=== PATIENT | female | born 1945 | race Caucasian/White ===

== ENCOUNTER 2016-05-30 06:14 | Inpatient (IN) | payer MEDICARE, BC ==
[~2016-05-30 06:14] MED LIST: Lactated Ringers 1,000 ML IV SCH; Lidocaine 1%/Sod Bicarbonate in NS 8.4% 1 ML Syringe IV PRN; Sodium Chloride 0.9% 10 ML Syringe FLUSH PRN; ceFAZolin 1 GM Vial ONE
[2016-05-30] MEDS ORDERED: Sodium Chloride 0.9% 10 ML ONE (06:16)
[2016-05-30] MEDS ORDERED: Propofol 200 MG/20 ML SDV ONE ×2 (06:16→07:30)
[2016-05-30] MEDS ORDERED: Midazolam 1 MG/ML 2 ML SDV ONE (06:17)
[2016-05-30] MEDS ORDERED: fentaNYL 100 MCG/2 ML SDV ONE (06:17)
[2016-05-30] MEDS ORDERED: Morphine PF 10 MG/10 ML SDV ONE (06:18)
[2016-05-30] MEDS ORDERED: Ondansetron 4 MG/2 ML SDV IVPUSH PRN ×2 (06:25→06:42)
[2016-05-30] MEDS ORDERED: HYDROmorphone 0.5 MG/0.5 ML Syringe IVPUSH PRN (06:25)
[2016-05-30] MEDS ORDERED: diphenhydrAMINE 50 MG/ML SDV IVPUSH PRN (06:25)
[2016-05-30] MEDS ORDERED: fentaNYL 100 MCG/2 ML SDV IVPUSH PRN (06:25)
--- NOTE | 2016-05-30 06:31 | PCM.PREANE ---
Preanesthetic Assessment - Anesthesia/Transfusion/Family Hx Anesthesia History: Prior Anesthesia Without Reaction Type of Anesthesia Reaction: Unknown Family History of Anesthesia Reaction: No Transfusion History: Unknown Type of Transfusion Reactions: Reports: Unknown - Review of Systems General: No Symptoms Pulmonary: No Symptoms (asthma, only uses inhaler with colds or flu) Cardiovascular: No Symptoms Gastrointestinal: No symptoms (gerd, well controlled with meds) Neurological: No Symptoms (hx of back pain, s/p surgery in January, rarely with get pain down left leg) Other: Reports: Depression, Anxiety - Physical Assessment NPO Status Date: 05/29/16 NPO Status Time: 21:00 Pulse: 90 O2 Sat by Pulse Oximetry: 92 Respiratory Rate: 16 Blood Pressure: 154/78 Temperature: 36.8 C Height: 1.63 m Weight: 68.039 kg ASA Class: 2 Mental Status: Alert & Oriented x3 Airway Class: Mallampati = 2 Dentition: Reports: Normal Dentition Thyro-Mental Finger Breadths: 3 Mouth Opening Finger Breadths: 2 ROM/Head Extension: Limited/Partial Lungs: Clear to auscultation, Normal respiratory effort Cardiovascular: Regular Rate, Regular Rhythm - Lab Values: Laboratory Last Values MRSA (PCR) Negative 05/18/16 11:41 - Allergies Allergies/Adverse Reactions: Allergies Allergy/AdvReac Type Severity Reaction Status Date / Time niacin Allergy Rash Verified 05/27/16 10:38 atorvastatin calcium AdvReac Muscle Verified 05/27/16 10:38 [From Lipitor] Aches rosuvastatin calcium AdvReac Muscle Verified 05/27/16 10:38 [From Crestor] Aches - Blood Blood Available: No Product(s) Available: None - Anesthesia Plan Pre-Op Medication Ordered: None - Acknowledgements Anesthesia Type Planned: Spinal Pt an Appropriate Candidate for the Planned Anesthesia: Yes Alternatives and Risks of Anesthesia Discussed w Pt/Guardian: Yes Pt/Guardian Understands and Agrees with Anesthesia Plan: Yes PreAnesthesia Questionnaire Cardiovascular History: Reports: Hypertension, Other (see below) Other Cardiovascular History: hypercholesterolemia Respiratory History: Reports: Asthma Other Respiratory History: rib pain on left side Neurological History: Reports: Other (see below) Other Neuro History: myalgia Psychiatric History: Reports: Anxiety, Other (see below) Other Psychiatric History: major depressive disorder - Past Surgical History GI Surgical History: Reports: Appendectomy, Cholecystectomy Female Surgical History: Reports: Hysterectomy Musculoskeletal Surgical History: Reports: Other (see below) Other Musculoskeletal Surgeries/Procedures:: hammertoe surgery - SUBSTANCE USE Smoking Status *Q: Never Smoker Second Hand Smoke Exposure: No Days Per Week of Alcohol Use: 0 (rarely) Recreational Drug Use History: No - HOME MEDS Home Medications: Home Meds Amitriptyline [Elavil] 50 mg PO DAILY 10/06/14 [History] Cyanocobalamin (Vitamin B-12) [B-12] 1,000 mcg PO DAILY 10/06/14 [History] DULoxetine [Cymbalta] 30 mg PO DAILY 10/06/14 [History] DULoxetine [Cymbalta] 60 mg PO DAILY 10/06/14 [History] Diltiazem HCl [Diltiazem ER] 240 mg PO DAILY 10/06/14 [History] Docusate Sodium [Stool Softener] 150 mg PO BID 10/06/14 [History] Estrogens, Conjugated [Premarin] 12.5 mcg VAG DAILY 10/06/14 [History] Lutein/Min/Vit C/Vit E Acetate [Ocuvite Lutein] 1 mg PO DAILY 10/06/14 [History] Pravastatin [Pravachol] 20 mg PO DAILY 10/06/14 [History] Sennosides/Docusate Sodium [Senna-Docusate Sodium Tablet] 150 mg PO BID [History] buPROPion [Wellbutrin XL] 150 mg PO DAILY 10/06/14 [History] Ibuprofen 600 mg PO Q4HR PRN #30 tablet 10/07/14 [Rx] Diltiazem [Cardizem CD] 240 mg PO DAILY 05/27/16 [History] Multivitamin [Multivitamins] 1 cap PO BID 05/27/16 [History] Pantoprazole Sodium [Protonix] 40 mg PO DAILY 05/27/16 [History] - CURRENT (IN HOUSE) MEDS Current Meds: Current Medications Lactated Ringer's (Ringers, Lactated) 1,000 mls @ 125 mls/hr IV ASDIRECTED GLORIA Lidocaine/Sodium Bicarbonate (Buffered Lidocaine 1% In Ns 8.4%) 0.25 ml IV ONETIME PRN PRN Reason: Prior to IV Start Sodium Chloride (Saline Flush) 10 ml FLUSH ASDIRECTED PRN PRN Reason: Keep Vein Open Discontinued Medications Cefazolin Sodium (Ancef) Confirm Administered Dose 2 gm .ROUTE .STK-MED ONE Stop: 05/30/16 06:17 Fentanyl (Sublimaze) Confirm Administered Dose 100 mcg .ROUTE .STK-MED ONE Stop: 05/30/16 06:18 Sodium Chloride (Normal Saline) Confirm Administered Dose 10 mls @ as directed .ROUTE .STK-MED ONE Stop: 05/30/16 06:17 Midazolam HCl (Versed 1 Mg/Ml) Confirm Administered Dose 2 mg .ROUTE .STK-MED ONE Stop: 05/30/16 06:18 Morphine Sulfate (Duramorph Pf) Confirm Administered Dose 10 mg .ROUTE .STK-MED ONE Stop: 05/30/16 06:19 Propofol (Diprivan 20 Ml) Confirm Administered Dose 200 mg .ROUTE .STK-MED ONE Stop: 05/30/16 06:17 Preanesthetic Assessment - ANESTHESIA/TRANSFUSION/FAMILY HX Anesthesia/Transfusion History: No Prior Transfusion(s), Prior Anesthesia (NO PROB) Family History of Anesthesia Reaction: No - PHYSICAL ASSESSMENT Height: 1.63 m Weight: 68.039 kg - LAB Values: Laboratory Last Values MRSA (PCR) Negative 05/18/16 11:41 - ALLERGIES Allergies/Adverse Reactions: Allergies Allergy/AdvReac Type Severity Reaction Status Date / Time niacin Allergy Rash Verified 05/27/16 10:38 atorvastatin calcium AdvReac Muscle Verified 05/27/16 10:38 [From Lipitor] Aches rosuvastatin calcium AdvReac Muscle Verified 05/27/16 10:38 [From Crestor] Aches
[2016-05-30] MEDS ORDERED: Sennosides 8.6 MG Tab PO PRN (06:42)
[2016-05-30] MEDS ORDERED: Bisacodyl 5 MG Tab PO PRN (06:42)
[2016-05-30] MEDS ORDERED: Magnesium Hydroxide 400 MG/5 ML Susp 30 ML Cup PO PRN (06:42)
[2016-05-30] MEDS ORDERED: Naloxone 0.4 MG/ML SDV IVPUSH PRN (06:42)
[2016-05-30] MEDS: Bupivacaine 0.25% 30 ML SDV ONE ×2 (07:48→08:13)
[2016-05-30] MEDS: ceFAZolin 1 GM Vial ONE ×2 (07:48→08:07)
[2016-05-30] MEDS: Iodine/Sodium Iodide 2% Tincture 30 ML Bottle ONE ×2 (07:49→08:04)
[2016-05-30] MEDS: Morphine 8 MG, EPINEPHrine 0.3 MG, Cefuroxime 750 MG, Ketorolac 30 MG, Sodium Chloride ... ONE ×10 (07:49→08:11)
--- NOTE | 2016-05-30 08:10 | PCM.OPNOTE ---
- General Post-Op/Procedure Note Date of Surgery/Procedure: 05/30/16 Operative Procedure(s): left total knee arthroplasty Pre Op Diagnosis: left knee osteoarthrosis Post-Op Diagnosis: Same Anesthesia Technique: Local, MAC, Spinal Primary Surgeon: Toney Escalera Anesthesia Provider: Kinsey Russo Automotive Service Manager: Alyson Geronimo Automotive Service Manager: Jo Short EBToya in mLs: 600 Complications: None Condition: Good
[2016-05-30] MEDS ORDERED: Lactated Ringers 1,000 ML ONE ×2 (08:30)
--- NOTE | 2016-05-30 08:54 | PCM.POSTAN ---
POST ANESTHESIA ASSESSMENT - VITAL SIGNS Pulse Rate: 88 SaO2: 95 Resp Rate: 16 Blood Pressure: 123/71 Temperature: 36.2 C - RESPIRATORY Respiratory Status: respiratory rate WNL, airway patent, O2 saturation stable, supplemental oxygen - CARDIOVASCULAR CV Status: pulse rate WNL, blood pressure stable - GASTROINTESTINAL GI Status: no symptoms - PAIN Pain Score: 0 - POST OP HYDRATION Hydration Status: adequate & stable
[2016-05-30] MEDS ORDERED: Diphtheria,Pertussis(Acell),Tetanus Vaccine 0.5 ML SDV inactive IM ONE (10:11)
[2016-05-30] MEDS ORDERED: Pneumococcal 13-Valent Conjugate Vaccine 0.5 ML Syringe IM ONE (10:12)
[2016-05-30] MEDS: Acetaminophen/oxyCODONE 325-5 MG Tab PO PRN ×3 (10:12→21:23)
[2016-05-30] MEDS: Famotidine 20 MG Tab PO SCH ×2 (10:15→21:24)
--- NOTE | 2016-05-30 10:29 | CR ---
Left knee: AP and lateral views of the left knee were obtained. Comparison: No previous knee exam. Recently placed left knee prosthesis is seen. Components are aligned. Underlying bony structures are intact. Joint effusion is seen. Air noted within the joint and soft tissues which is compatible with the surgical procedure. Impression: 1. Satisfactory appearance of recently placed left knee prosthesis. Diagnostic code #2
--- NOTE | 2016-05-30 13:21 | OR ---
DATE OF OPERATION: 05/30/2016 SURGEON: Toney Escalera MD OPERATION PERFORMED: Left total knee arthroplasty. PREOPERATIVE DIAGNOSIS: Left knee osteoarthrosis. POSTOPERATIVE DIAGNOSIS: Left knee osteoarthrosis. ANESTHESIA: Local MAC with spinal. ANESTHESIA PROVIDER: Kinsey Russo CRNA ASSISTANTS: Alyson Geronimo PA-C, and Jo Short LPN. ESTIMATED BLOOD LOSS: 600 mL. COMPLICATIONS: None. CONDITION: Stable. IMPLANTS: 1. [place] size 4 PS femur. 2. [place] size 4 [place] tibial baseplate. 3. Te[place]oro size 4, 9 mm X3 PS polyethylene. 4. 29 x 9 mm [place] asymmetric patella. DESCRIPTION OF PROCEDURE: The patient was identified in the preop holding area. Proper site was marked and identified by the surgeon. The patient was taken back to the operating theater. After adequate anesthesia, the patient's left lower extremity had a nonsterile tourniquet applied and it was then sterilely prepped and draped in the usual sterile fashion. OR timeout was performed. The patient received 2 grams IV Ancef. At this time, left lower extremity was exsanguinated. Tourniquet was insufflated to 300 mmHg. Standard medial parapatellar incision was made. Medial parapatellar arthrotomy was created. Deep fibers of the MCL were raised and anterior fat pad was resected. At this time, attention was turned to the patella. Patella measured 21, it was resected to a 13 for a 29 x 9 mm patella. Drill holes were then drilled and found to be in adequate position. The drill was then drilled in the distal femur and the intramedullary distal femoral cutting guide was then placed. 8 mm was resected off the distal femur and was found to be an adequate resection. Sizing guide was placed. It was found to be a size 4 PS femur that was shown on the implant record at the beginning of this dictation. The drill holes were drilled for the epicondylar axis using Whitesides line and epicondyles as reference. At this time, the 4-in- 1 cutting block was placed. An anterior posterior and anterior and posterior chamfer cuts were then completed. The correct size box cut was then placed and the box cut was completed and found to be an adequate resection. Attention was turned to the tibia. The posterior medial lateral retractors were placed. The extramedullary tibial guide was placed. It was placed in the old footprint of the ACL. It was aligned with the center of the ankle and 0 degrees of slope, 9 mm was then resected off the unaffected lateral side. There was found to be an acceptable reduction. At this time, posterior osteophytes were removed along with medial and lateral meniscus. A trial implant was placed with a correct sized tibia that was mentioned at the beginning of the dictation. A spacer was placed and a 4 PS polyethylene was then placed. The patient's knee was brought through range of motion. The patella was tracking centrally and was stable to varus and valgus stress. Alignment was found to be roughly at 0 degrees. At this time, cement was mixed on the back table. The tibia was stamped and drilled in proper rotation. All cut surfaces were irrigated with pulse lavage irrigation with Ancef and then completely dried. Once this was completed, then the cement was ready. The universal tibial base plate was cemented in place. Next, the 4 PS femur was cemented into place and the 4 PS polyethylene was placed. The patient's knee was brought into full extension. Excess cement was removed. The patella was then cemented in place at this time. Tourniquet was deflated. One liter dilute Betadine solution was irrigated through the knee along with 3 L of pulse lavage irrigation with Ancef. Periarticular injection was then completed. The patient's knee was brought through a range of motion. Once the cement had time to set up and it was found to be stable to varus valgus stress, the patella was tracking centrally with full range of motion. At this time, a #2 barbed suture was used for closure of the medial parapatellar arthrotomy. Topical tranexamic acid was placed. 2-0 Vicryl was used subcutaneously, a running 3-0 Monocryl was used subcuticularly. The patient tolerated the procedure well and was sent to the PACU in stable condition. MMABI /[id number]
--- NOTE | 2016-05-30 13:35 | PCM.CONS ---
H&P History of Present Illness - General Date of Service: 05/30/16 Admit Problem/Dx: Admission Diagnosis/Problem Admission Diagnosis/Problem Osteoarthritis of knee Source of Information: Patient, Old records, Provider, RN notes reviewed History Limitations: Reports: Physical impairment - History of Present Illness Initial Comments - Free Text/Narative: This is a 70-year-old, white female, with past medical history of HTN, HLD, Asthma, GERD, Anxiety and Depression who underwent left total knee arthroplasty post operative day zero. Patient is doing relatively well. Currently, her pain is controlled. She denies any acute issues. Hospitalist was consulted for postoperative care. - Related Data Allergies/Adverse Reactions: Allergies Allergy/AdvReac Type Severity Reaction Status Date / Time niacin Allergy Rash Verified 05/27/16 10:38 atorvastatin calcium AdvReac Muscle Verified 05/27/16 10:38 [From Lipitor] Aches rosuvastatin calcium AdvReac Muscle Verified 05/27/16 10:38 [From Crestor] Aches Home Medications: Home Meds Amitriptyline [Elavil] 50 mg PO DAILY 10/06/14 [History] Cyanocobalamin (Vitamin B-12) [B-12] 1,000 mcg PO DAILY 10/06/14 [History] DULoxetine [Cymbalta] 30 mg PO DAILY 10/06/14 [History] DULoxetine [Cymbalta] 60 mg PO DAILY 10/06/14 [History] Diltiazem HCl [Diltiazem ER] 240 mg PO DAILY 10/06/14 [History] Docusate Sodium [Stool Softener] 150 mg PO BID 10/06/14 [History] Estrogens, Conjugated [Premarin] 12.5 mcg VAG DAILY 10/06/14 [History] Lutein/Min/Vit C/Vit E Acetate [Ocuvite Lutein] 1 mg PO DAILY 10/06/14 [History] Pravastatin [Pravachol] 20 mg PO DAILY 10/06/14 [History] Sennosides/Docusate Sodium [Senna-Docusate Sodium Tablet] 150 mg PO BID [History] buPROPion [Wellbutrin XL] 150 mg PO DAILY 10/06/14 [History] Ibuprofen 600 mg PO Q4HR PRN #30 tablet 10/07/14 [Rx] Diltiazem [Cardizem CD] 240 mg PO DAILY 05/27/16 [History] Multivitamin [Multivitamins] 1 cap PO BID 05/27/16 [History] Pantoprazole Sodium [Protonix] 40 mg PO DAILY 05/27/16 [History] Past Medical History Cardiovascular History: Reports: Hypertension, Other (see below) Other Cardiovascular History: hypercholesterolemia Respiratory History: Reports: Asthma Other Respiratory History: rib pain on left side Neurological History: Reports: Other (see below) Other Neuro History: myalgia Psychiatric History: Reports: Anxiety, Other (see below) Other Psychiatric History: major depressive disorder - Past Surgical History GI Surgical History: Reports: Appendectomy, Cholecystectomy Female Surgical History: Reports: Hysterectomy Musculoskeletal Surgical History: Reports: Other (see below) Other Musculoskeletal Surgeries/Procedures:: hammertoe surgery Social & Family History - Tobacco Use Smoking Status *Q: Never Smoker Second Hand Smoke Exposure: No - Caffeine Use Caffeine Use: Reports: None - Alcohol Use Days Per Week of Alcohol Use: 0 (rarely) - Recreational Drug Use Recreational Drug Use: No Drug Use in Last 12 Months: No H&P Review of Systems - Review of Systems: Review Of Systems: See Below General: Denies: fever, chills, malaise, weakness, fatigue HEENT: Reports: no symptoms Pulmonary: Denies: Shortness of Breath, Cough Cardiovascular: Denies: chest pain Gastrointestinal: Denies: Abdominal pain, Nausea, Vomiting Genitourinary: Reports: no symptoms Musculoskeletal: Reports: no symptoms Skin: Denies: pruritis, rash, erythema Psychiatric: Denies: confusion, hallucinations, suicidal ideation Neurological: Reports: Difficulty Walking, Gait Disturbance Hematologic/Lymphatic: Reports: no symptoms Immunologic: Reports: no symptoms Exam - Exam Exam: See Below - Vital Signs Vital Signs: Last Vital Signs Temp 36.6 C 05/30/16 10:51 Pulse 73 05/30/16 10:32 Resp 18 05/30/16 13:00 BP 116/37 L 05/30/16 10:32 Pulse Ox 96 05/30/16 13:00 Weight: 68.039 kg - Exam General: alert, oriented, cooperative. No: mild distress HEENT: Conjunctiva clear, EOMI, Hearing intact, Mucosa moist & pink, Normal nasal septum, Posterior pharynx clear, Pupils equal, Pupils reactive Neck: supple, trachea midline Lungs: Clear to auscultation, Normal respiratory effort Cardiovascular: regular rate, regular rhythm Abdomen: normal bowel sounds, soft. No: organomegaly (Female) Exam: Other (indwelling dove catheter) Rectal (Female) Exam: Deferred Back Exam: normal inspection, decreased range of motion Extremities: normal inspection, normal pulses. No: clubbing, cyanosis, calf tenderness, edema Peripheral Pulses: 2+: posterior tibial (R), dorsalis pedis (L), dorsalis pedis (R) Skin: warm, dry, intact Neuro Extensive - Mental Status: oriented x3, normal cognition, memory intact Neuro Extensive - Motor, Sensory, Reflexes: CN II-XII intact (limited but fairly intact), abnormal gait Psychiatric: alert, normal affect, normal mood Consult PN Assessment/Plan POD#: 0 Procedures: Procedures BONE IMAGING (3D) (11/11/15) BONE IMAGING WHOLE BODY (11/11/15) MRI NECK SPINE W/O DYE (12/31/15) REPAIR BLADDER & VAGINA (10/07/14) Problem List Initiated/Reviewed/Updated: Yes Plan: Assessment: Acute: Post-Operative Care State - Fairly Stable - Continue to monitor for hemodynamic instability S/p Left Total Knee Arthroplasty - Stable - DVT and Pain Management as per primary team Hx/o Chronic OA - Pain Management as per primary team Chronic: Asthma HTN HLD GERD Anxiety Depression Plan: She is stable Routine AM labs Continue home meds PT/OT consult IS q2 awake Thank you for the opportunity to participate in the management of this patient. Requesting Provider: Dr. Escalera Date Consult Requested: 05/30/16 Reason for Consult: Post-Operative Care Patient History Reviewed: Yes Admission H&P Reviewed: Yes Consult Result/Summary: Stable
[2016-05-30] MEDS ORDERED: Morphine 2 MG/ML Syringe IVPUSH ONE (13:45)
[2016-05-30] MEDS: ceFAZolin 2 GM in Premix Bag 1 BAG IV SCH ×2 (13:51→21:29)
[2016-05-30] MEDS: Cyclobenzaprine 10 MG Tab PO PRN ×2 (16:10→21:25)
[2016-05-30] MEDS ORDERED: Ketorolac 15 MG/ML SDV IVPUSH PRN (17:42)
[2016-05-30] MEDS ORDERED: DOCUSATE SODIUM 150 MG PO SCH (21:00)
[2016-05-30] MEDS: Morphine 2 MG/ML Syringe IVPUSH PRN (21:17)
[2016-05-30] MEDS: Docusate Sodium 100 MG Cap PO SCH (21:22)
[2016-05-30] MEDS: Multivitamins,Therapeutic Tab PO SCH (21:22)
[2016-05-30] MEDS: Simvastatin 10 MG Tab PO SCH (21:25)
[2016-05-31] MEDS: Acetaminophen/oxyCODONE 325-5 MG Tab PO PRN ×2 (00:50→04:48)
[2016-05-31] MEDS: Cyclobenzaprine 10 MG Tab PO PRN ×3 (04:12→20:54)
[2016-05-31] MEDS: Morphine 2 MG/ML Syringe IVPUSH PRN ×4 (04:14→14:24)
[2016-05-31] MEDS: ceFAZolin 2 GM in Premix Bag 1 BAG IV SCH (05:04)
[2016-05-31] MEDS ORDERED: Ketorolac 15 MG/ML SDV IVPUSH ONE (05:49)
[2016-05-31] MEDS: HYDROmorphone 2 MG Tab PO PRN ×5 (06:45→21:41)
[2016-05-31] MEDS: Multivitamins with Minerals/Folic Acid/Lutein/Zeaxanth Tab PO SCH (08:59)
[2016-05-31] MEDS: DULoxetine 30 MG Cap PO SCH (08:59)
[2016-05-31] MEDS: Rivaroxaban 10 MG Tab PO SCH (08:59)
[2016-05-31] MEDS: Pantoprazole 40 MG Tab.CR PO SCH (08:59)
[2016-05-31] MEDS: Cyanocobalamin (Vitamin B12) 1,000 MCG Tab PO SCH (08:59)
[2016-05-31] MEDS: Diltiazem 240 MG Cap.ER PO SCH (08:59)
[2016-05-31] MEDS: Docusate Sodium 100 MG Cap PO SCH ×2 (08:59→20:27)
[2016-05-31] MEDS: Multivitamins,Therapeutic Tab PO SCH ×2 (08:59→20:27)
[2016-05-31] MEDS: Amitriptyline 25 MG Tab PO SCH ×2 (08:59→09:08)
[2016-05-31] MEDS: Famotidine 20 MG Tab PO SCH (08:59)
[2016-05-31] MEDS ORDERED: ESTROGENS CONJUGATED VAG SCH (09:00)
[2016-05-31] MEDS ORDERED: DULOXETINE 60 MG PO SCH (09:00)
[2016-05-31] MEDS: buPROPion 150 MG Tab.ER PO SCH (09:00)
[2016-05-31] MEDS ORDERED: DILTIAZEM HCL 240 MG PO SCH (09:00)
--- NOTE | 2016-05-31 09:26 | PCM.CONSN ---
- General Info Date of Service: 05/31/16 Admission Dx/Problem (Free Text): Admission Diagnosis/Problem Admission Diagnosis/Problem Osteoarthritis of knee POD #[address] Escalera Doing well; pain under good control; slept well. No nausea. No new s/s of CP, palpitations, SOB, abd pain. I assist patient up to BR, she does well with transfer and ambulation. VSS HGB good at 9.9, other labs stable this am. Functional Status: Reports: pain controlled, tolerating diet, ambulating, urinating. Denies: new symptoms - Review of Systems General: Reports: No Symptoms HEENT: Reports: no symptoms Pulmonary: Reports: no symptoms Cardiovascular: Reports: No Symptoms Gastrointestinal: Reports: No symptoms Genitourinary: Reports: no symptoms Musculoskeletal: Reports: leg pain (lt knee) Skin: Reports: no symptoms Neurological: Reports: No Symptoms Psychiatric: Reports: no symptoms - Patient Data Vitals - most recent: Last Vital Signs Temp 97.3 F 05/31/16 07:59 Pulse 99 05/31/16 07:59 Resp 18 05/31/16 07:59 BP 147/79 H 05/31/16 07:59 Pulse Ox 96 05/31/16 07:59 Weight - most recent: 150 lb I&O - last 24 hours: Intake & Output 05/30/16 05/31/16 05/31/16 22:59 06:59 14:59 Intake Total 260 1250 Output Total 610 Balance 260 640 Lab Results last 24 hrs: Laboratory Results - last 24 hr 05/31/16 05/31/16 Range/Units 04:37 04:37 WBC 9.63 (3.98-10.04) K/mm3 RBC 3.31 L (3.98-5.22) M/mm3 Hgb 9.9 L (11.2-15.7) gm/L Hct 31.3 L (34.1-44.9) % MCV 94.6 (79.4-94.8) fl MCH 29.9 (25.6-32.2) pg MCHC 31.6 L (32.2-35.5) g/dl RDW Std Deviation 46.0 (36.4-46.3) fL Plt Count 218 (182-369) K/mm3 MPV 10.6 (9.4-12.3) fl Neut % (Auto) 66.0 (34.0-71.1) % Lymph % (Auto) 17.1 L (19.3-51.7) % [place] % (Auto) 14.2 H (4.7-12.5) % Eos % (Auto) 2.3 (0.7-5.8) Baso % (Auto) 0.2 (0.1-1.2) % Neut # 6.35 H (1.56-6.13) K/mm3 Lymph # 1.65 (1.18-3.74) K/mm3 [place] # 1.37 H (0.24-0.36) K/mm3 Eos # 0.22 (0.04-0.36) K/mm3 Baso # 0.02 (0.01-0.08) K/mm3 Sodium 137 (136-145) mEq/L Potassium 4.1 (3.5-5.1) mEq/L Chloride 102 (98-107) mEq/L Carbon Dioxide 26 (21-32) mEq/L Anion Gap 13.1 (5-15) BUN 14 (7-18) mg/dL Creatinine 0.9 (0.55-1.02) mg/dL Est Cr Clr Drug Dosing 50.94 mL/min Estimated GFR (MDRD) > 60 (>60) mL/min BUN/Creatinine Ratio 15.6 (14-18) Glucose 116 H (80-115) mg/dL Calcium 8.5 (8.5-10.1) mg/dL Total Bilirubin 0.4 (0.2-1.0) mg/dL AST 18 (15-37) U/L ALT 23 (14-59) U/L Alkaline Phosphatase 82 (46-116) U/L Total Protein 6.1 L (6.4-8.2) g/dl Albumin 3.3 L (3.4-5.0) g/dl Globulin 2.8 gm/dL Albumin/Globulin Ratio 1.2 (1-2) Med Orders - Current: Current Medications Amitriptyline HCl (Elavil) 50 mg PO DAILY [facility] Last Admin: 05/31/16 09:08 Dose: Not Given Bisacodyl (Dulcolax) 5 mg PO DAILY PRN PRN Reason: Constipation Bupropion HCl (Wellbutrin Xl) 150 mg PO DAILY [facility] Last Admin: 05/31/16 09:00 Dose: 150 mg Cyanocobalamin (Vitamin B12) 1,000 mcg PO DAILY [facility] Last Admin: 05/31/16 08:59 Dose: 1,000 mcg Cyclobenzaprine HCl (Flexeril) 10 mg PO TID PRN PRN Reason: Spasms Last Admin: 05/31/16 04:12 Dose: 10 mg Diltiazem HCl (Dilacor Xr) 240 mg PO DAILY [facility] Last Admin: 05/31/16 08:59 Dose: 240 mg Diphenhydramine HCl (Benadryl) 25 mg IVPUSH Q6H PRN PRN Reason: itching Docusate Sodium (Colace) 100 mg PO BID [facility] Last Admin: 05/31/16 08:59 Dose: 100 mg Duloxetine HCl (Cymbalta) 90 mg PO DAILY [facility] Last Admin: 05/31/16 08:59 Dose: 90 mg Famotidine (Pepcid) 20 mg PO Q12H [facility] Last Admin: 05/31/16 08:59 Dose: 20 mg Hydromorphone HCl (Dilaudid) 2 mg PO Q4H PRN PRN Reason: Pain Last Admin: 05/31/16 06:45 Dose: 2 mg Magnesium Hydroxide (Milk Of Magnesia) 30 ml PO BID PRN PRN Reason: Constipation Morphine Sulfate (Morphine) 2 mg IVPUSH Q2H PRN PRN Reason: Breakthrough Pain Last Admin: 05/31/16 09:00 Dose: 2 mg Multivitamins (Thera) 1 each PO BID [facility] Last Admin: 05/31/16 08:59 Dose: 1 each Ondansetron HCl (Zofran) 4 mg IVPUSH Q6H PRN PRN Reason: Nausea/Vomiting Last Admin: 05/31/16 07:02 Dose: 4 mg Pantoprazole Sodium (Protonix) 40 mg PO DAILY [facility] Last Admin: 05/31/16 08:59 Dose: 40 mg Rivaroxaban (Xarelto) 10 mg PO DAILY [facility] Last Admin: 05/31/16 08:59 Dose: 10 mg Senna (Senna) 8.6 mg PO BID PRN PRN Reason: Constipation Senna/Docusate Sodium (Senna Plus) 1 tab PO BID [facility] Last Admin: 05/31/16 08:59 Dose: 1 tab Simvastatin (Zocor) 10 mg PO BEDTIME [facility] Last Admin: 05/30/16 21:25 Dose: 10 mg Sodium Chloride (Saline Flush) 10 ml FLUSH ASDIRECTED PRN PRN Reason: Keep Vein Open Last Admin: 05/30/16 14:52 Dose: 10 ml Vit A/Vit C/Vit E/Selen/Cu/Zn/Lutei (Icaps Mv) 1 tab PO DAILY [facility] Last Admin: 05/31/16 08:59 Dose: 1 tab Discontinued Medications Bupivacaine HCl (Marcaine 0.25%) Confirm Administered Dose 30 ml .ROUTE .STK- MED ONE Stop: 05/30/16 06:16 Last Admin: 05/30/16 08:13 Dose: 30 ml Cefazolin Sodium (Ancef) Confirm Administered Dose 2 gm .ROUTE .STK-MED ONE Stop: 05/30/16 06:17 Last Admin: 05/30/16 08:07 Dose: 2 gm Cefazolin Sodium (Ancef) Confirm Administered Dose 2 gm .ROUTE .STK-MED ONE Stop: 05/30/16 06:15 Morphine Sulfate 8 mg/Epinephrine HCl 0.3 mg/Cefuroxime Sodium 750 mg/Ketorolac Tromethamine 30 mg/Sodium Chloride 27.9 ml 0 mg .XX ONETIME ONE Stop: 05/30/16 07:46 Last Admin: 05/30/16 08:11 Dose: 788.3 mg Diphtheria/Tetanus/Acell Pertussis (Boostrix) 0.5 ml IM .ONCE ONE Stop: 05/30/16 10:12 Fentanyl (Sublimaze) Confirm Administered Dose 100 mcg .ROUTE .STK-MED ONE Stop: 05/30/16 06:18 Fentanyl (Sublimaze) 50 mcg IVPUSH Q5M PRN PRN Reason: pain Stop: 05/30/16 12:00 Last Admin: 05/30/16 09:00 Dose: 50 mcg Hydromorphone HCl (Dilaudid) 0.5 mg IVPUSH Q15M PRN PRN Reason: Pain (severe 7-10) Stop: 05/30/16 06:41 Lactated Ringer's (Ringers, Lactated) 1,000 mls @ 125 mls/hr IV ASDIRECTED [facility] Last Admin: 05/30/16 06:36 Dose: 125 mls/hr Sodium Chloride (Normal Saline) Confirm Administered Dose 10 mls @ as directed .ROUTE .STK-MED ONE Stop: 05/30/16 06:17 Cefazolin Sodium/Dextrose 2 gm (/ Premix) 50 mls @ 100 mls/hr IV Q8H [facility] Stop: 05/31/16 06:29 Last Admin: 05/31/16 05:04 Dose: 100 mls/hr Lactated Ringer's (Ringers, Lactated) Confirm Administered Dose 1,000 mls @ as directed .ROUTE .STK-MED ONE Stop: 05/30/16 08:31 Lactated Ringer's (Ringers, Lactated) Confirm Administered Dose 1,000 mls @ as directed .ROUTE .STK-MED ONE Stop: 05/30/16 08:31 Iodine (Iodine 2% Mild Tincture) Confirm Administered Dose 30 ml .ROUTE .STK- MED ONE Stop: 05/30/16 06:16 Last Admin: 05/30/16 08:04 Dose: 18 ml Ketorolac Tromethamine (Toradol) 15 mg IVPUSH Q8H PRN PRN Reason: Pain Stop: 05/31/16 01:43 Last Admin: 05/30/16 18:29 Dose: 15 mg Ketorolac Tromethamine (Toradol) 15 mg IVPUSH ONETIME ONE Stop: 05/31/16 05:50 Last Admin: 05/31/16 06:08 Dose: 15 mg Lidocaine/Sodium Bicarbonate (Buffered Lidocaine 1% In Ns 8.4%) 0.25 ml IV ONETIME PRN PRN Reason: Prior to IV Start Last Admin: 05/30/16 06:36 Dose: 0.25 ml Midazolam HCl (Versed 1 Mg/Ml) Confirm Administered Dose 2 mg .ROUTE .STK-MED ONE Stop: 05/30/16 06:18 Morphine Sulfate (Duramorph Pf) Confirm Administered Dose 10 mg .ROUTE .STK-MED ONE Stop: 05/30/16 06:19 Morphine Sulfate (Morphine) 2 mg IVPUSH ONETIME ONE Stop: 05/30/16 13:46 Last Admin: 05/30/16 12:47 Dose: 2 mg Naloxone HCl (Narcan) 0.1 mg IVPUSH Q5M PRN PRN Reason: Oversedation Stop: 05/30/16 06:58 Non-Formulary Medication (Duloxetine) 60 mg PO DAILY [facility] Non-Formulary Medication (Diltiazem Hcl [Diltiazem Er]) 240 mg PO DAILY [facility] Non-Formulary Medication (Docusate Sodium [Stool Softener]) 150 mg PO BID [facility] Last Admin: 05/31/16 08:06 Dose: Not Given Non-Formulary Medication (Estrogens, Conjugated) 12.5 mcg VAG DAILY [facility] Ondansetron HCl (Zofran) 4 mg IVPUSH ONETIME PRN PRN Reason: Nausea/Vomiting Stop: 05/30/16 12:00 Oxycodone/Acetaminophen (Percocet 325-5 Mg) 1 - 2 tab PO Q4H PRN PRN Reason: Pain Last Admin: 05/31/16 04:48 Dose: 2 tab Pneumococcal 13-Valent Conj Vacc (Prevnar 13) 0.5 ml IM .ONCE ONE Stop: 05/30/16 10:13 Propofol (Diprivan 20 Ml) Confirm Administered Dose 200 mg .ROUTE .STK-MED ONE Stop: 05/30/16 06:17 Propofol (Diprivan 20 Ml) Confirm Administered Dose 200 mg .ROUTE .STK-MED ONE Stop: 05/30/16 07:31 Tranexamic Acid (Cyklokapron) Confirm Administered Dose 1,000 mg .ROUTE .STK- MED ONE Stop: 05/30/16 06:15 Last Admin: 05/30/16 08:15 Dose: 1,000 mg - Exam Quality Assessment: DVT prophylaxis General: alert, oriented, cooperative, no acute distress HEENT: Pupils equal, Pupils reactive, EOMI, Mucous membr. moist/pink Neck: supple Lungs: Clear to auscultation, Normal respiratory effort Cardiovascular: Regular Rate, Regular Rhythm Abdomen: bowel sounds present, soft, no tenderness, no distension (Female) Exam: Deferred Back Exam: normal inspection Extremities: no edema, no calf tenderness, other (Ice to lt knee, SCD's bilat) Peripheral Pulses: 1+: dorsalis pedis (L), dorsalis pedis (R) Skin: warm, dry Neurological: no new focal deficit Psy/Mental Status: alert, normal affect, normal mood Consult PN Assessment/Plan POD#: 1 Procedures: Procedures BONE IMAGING (3D) (11/11/15) BONE IMAGING WHOLE BODY (11/11/15) MRI NECK SPINE W/O DYE (12/31/15) REPAIR BLADDER & VAGINA (10/07/14) (1) S/P total knee arthroplasty SNOMED Code(s): 9268147577492, 609349514, 1828650917425 Code(s): Z96.659 - PRESENCE OF UNSPECIFIED ARTIFICIAL KNEE JOINT Priority: High Current Visit: Yes Qualifiers: Laterality: left Qualified Code(s): Z96.652 - Presence of left artificial knee joint (2) Osteoarthritis SNOMED Code(s): 085808643 Code(s): M19.90 - UNSPECIFIED OSTEOARTHRITIS, UNSPECIFIED SITE Current Visit: Yes Qualifiers: Osteoarthritis location: knee Osteoarthritis type: primary Laterality: left Qualified Code(s): M17.12 - Unilateral primary osteoarthritis, left knee (3) HTN (hypertension) SNOMED Code(s): 10641868 Code(s): I10 - ESSENTIAL (PRIMARY) HYPERTENSION Priority: Medium Current Visit: Yes Qualifiers: Hypertension type: essential hypertension Qualified Code(s): I10 - Essential (primary) hypertension (4) HLD (hyperlipidemia) SNOMED Code(s): 27840826 Code(s): E78.5 - HYPERLIPIDEMIA, UNSPECIFIED Priority: Medium Current Visit: No Qualifiers: Hyperlipidemia type: unspecified Qualified Code(s): E78.5 - Hyperlipidemia , unspecified (5) Asthma SNOMED Code(s): 052098965 Code(s): J45.909 - UNSPECIFIED ASTHMA, UNCOMPLICATED Priority: Medium Current Visit: No Qualifiers: Asthma severity: unspecified severity Asthma complication type: uncomplicated Qualified Code(s): J45.909 - Unspecified asthma, uncomplicated (6) GERD (gastroesophageal reflux disease) SNOMED Code(s): 765895801 Code(s): K21.9 - GASTRO-ESOPHAGEAL REFLUX DISEASE WITHOUT ESOPHAGITIS Priority: Medium Current Visit: No Qualifiers: Esophagitis presence: esophagitis presence not specified Qualified Code(s) : K21.9 - Gastro-esophageal reflux disease without esophagitis (7) Depression SNOMED Code(s): 66131134 Code(s): F32.9 - MAJOR DEPRESSIVE DISORDER, SINGLE EPISODE, UNSPECIFIED Priority: Medium Current Visit: No Qualifiers: Depression Type: unspecified Qualified Code(s): F32.9 - Major depressive disorder, single episode, unspecified (8) Anxiety SNOMED Code(s): 89764844 Code(s): F41.9 - ANXIETY DISORDER, UNSPECIFIED Priority: Medium Current Visit: No Problem List Initiated/Reviewed/Updated: Yes Plan: Assessment/Plan POD #[address] Escalera -Pain managment and DVT prophylax per primary team/Ortho -Doing well -VSS -Labs stable; hgb 9.9 Chronic conditions: Stable- cont home meds HTN- good control HLD Asthma Depression Anxiety GERD Other: PT/OT CM/SW for assistance with DC planning OK for dc home today from hospitalist standpoint if ok with PT and Ortho Full Code Status
--- NOTE | 2016-05-31 09:45 | PCM48HPAN ---
Post Anesthesia Note - EVALUATION WITHIN 48HRS OF ANESTHETIC Vital Signs in Normal Range: Yes Patient Participated in Evaluation: Yes Respiratory Function Stable: Yes Airway Patent: Yes Cardiovascular Function Stable: Yes Hydration Status Stable: Yes Pain Control Satisfactory: Yes Nausea and Vomiting Control Satisfactory: Yes Mental Status Recovered: Yes
--- NOTE | 2016-05-31 13:06 | PCM.SURGPN ---
- General Info Date of Service: 05/31/16 POD#: 1 Functional Status: Reports: tolerating diet, ambulating, urinating, other (The pt notes improved pain control with Dilaudid.). Denies: new symptoms - Patient Data Vitals - most recent: Last Vital Signs Temp 98.1 F 05/31/16 11:31 Pulse 97 05/31/16 11:31 Resp 18 05/31/16 07:59 BP 150/68 H 05/31/16 11:31 Pulse Ox 94 L 05/31/16 11:31 Weight - most recent: 150 lb I&O - last 24 hours: Intake & Output 05/30/16 05/31/16 05/31/16 22:59 06:59 14:59 Intake Total 260 1250 50 Output Total 610 Balance 260 640 50 Lab Results last 24 hrs: Laboratory Results - last 24 hr 05/31/16 05/31/16 Range/Units 04:37 04:37 WBC 9.63 (3.98-10.04) K/mm3 RBC 3.31 L (3.98-5.22) M/mm3 Hgb 9.9 L (11.2-15.7) gm/L Hct 31.3 L (34.1-44.9) % MCV 94.6 (79.4-94.8) fl MCH 29.9 (25.6-32.2) pg MCHC 31.6 L (32.2-35.5) g/dl RDW Std Deviation 46.0 (36.4-46.3) fL Plt Count 218 (182-369) K/mm3 MPV 10.6 (9.4-12.3) fl Neut % (Auto) 66.0 (34.0-71.1) % Lymph % (Auto) 17.1 L (19.3-51.7) % Wells % (Auto) 14.2 H (4.7-12.5) % Eos % (Auto) 2.3 (0.7-5.8) Baso % (Auto) 0.2 (0.1-1.2) % Neut # 6.35 H (1.56-6.13) K/mm3 Lymph # 1.65 (1.18-3.74) K/mm3 Wells # 1.37 H (0.24-0.36) K/mm3 Eos # 0.22 (0.04-0.36) K/mm3 Baso # 0.02 (0.01-0.08) K/mm3 Sodium 137 (136-145) mEq/L Potassium 4.1 (3.5-5.1) mEq/L Chloride 102 (98-107) mEq/L Carbon Dioxide 26 (21-32) mEq/L Anion Gap 13.1 (5-15) BUN 14 (7-18) mg/dL Creatinine 0.9 (0.55-1.02) mg/dL Est Cr Clr Drug Dosing 50.94 mL/min Estimated GFR (MDRD) > 60 (>60) mL/min BUN/Creatinine Ratio 15.6 (14-18) Glucose 116 H (80-115) mg/dL Calcium 8.5 (8.5-10.1) mg/dL Total Bilirubin 0.4 (0.2-1.0) mg/dL AST 18 (15-37) U/L ALT 23 (14-59) U/L Alkaline Phosphatase 82 (46-116) U/L Total Protein 6.1 L (6.4-8.2) g/dl Albumin 3.3 L (3.4-5.0) g/dl Globulin 2.8 gm/dL Albumin/Globulin Ratio 1.2 (1-2) Med Orders - Current: Current Medications Amitriptyline HCl (Elavil) 50 mg PO DAILY [facility] Last Admin: 05/31/16 09:08 Dose: Not Given Bisacodyl (Dulcolax) 5 mg PO DAILY PRN PRN Reason: Constipation Bupropion HCl (Wellbutrin Xl) 150 mg PO DAILY [facility] Last Admin: 05/31/16 09:00 Dose: 150 mg Cyanocobalamin (Vitamin B12) 1,000 mcg PO DAILY [facility] Last Admin: 05/31/16 08:59 Dose: 1,000 mcg Cyclobenzaprine HCl (Flexeril) 10 mg PO TID PRN PRN Reason: Spasms Last Admin: 05/31/16 11:51 Dose: 10 mg Diltiazem HCl (Dilacor Xr) 240 mg PO DAILY [facility] Last Admin: 05/31/16 08:59 Dose: 240 mg Diphenhydramine HCl (Benadryl) 25 mg IVPUSH Q6H PRN PRN Reason: itching Docusate Sodium (Colace) 100 mg PO BID [facility] Last Admin: 05/31/16 08:59 Dose: 100 mg Duloxetine HCl (Cymbalta) 90 mg PO DAILY [facility] Last Admin: 05/31/16 08:59 Dose: 90 mg Hydromorphone HCl (Dilaudid) 2 mg PO Q4H PRN PRN Reason: Pain Last Admin: 05/31/16 10:40 Dose: 2 mg Magnesium Hydroxide (Milk Of Magnesia) 30 ml PO BID PRN PRN Reason: Constipation Morphine Sulfate (Morphine) 2 mg IVPUSH Q2H PRN PRN Reason: Breakthrough Pain Last Admin: 05/31/16 11:51 Dose: 2 mg Multivitamins (Thera) 1 each PO BID [facility] Last Admin: 05/31/16 08:59 Dose: 1 each Ondansetron HCl (Zofran) 4 mg IVPUSH Q6H PRN PRN Reason: Nausea/Vomiting Last Admin: 05/31/16 07:02 Dose: 4 mg Pantoprazole Sodium (Protonix) 40 mg PO DAILY [facility] Last Admin: 05/31/16 08:59 Dose: 40 mg Rivaroxaban (Xarelto) 10 mg PO DAILY [facility] Last Admin: 05/31/16 08:59 Dose: 10 mg Senna (Senna) 8.6 mg PO BID PRN PRN Reason: Constipation Senna/Docusate Sodium (Senna Plus) 1 tab PO BID [facility] Last Admin: 05/31/16 08:59 Dose: 1 tab Simvastatin (Zocor) 10 mg PO BEDTIME [facility] Last Admin: 05/30/16 21:25 Dose: 10 mg Sodium Chloride (Saline Flush) 10 ml FLUSH ASDIRECTED PRN PRN Reason: Keep Vein Open Last Admin: 05/30/16 14:52 Dose: 10 ml Vit A/Vit C/Vit E/Selen/Cu/Zn/Lutei (Icaps Mv) 1 tab PO DAILY [facility] Last Admin: 05/31/16 08:59 Dose: 1 tab Discontinued Medications Bupivacaine HCl (Marcaine 0.25%) Confirm Administered Dose 30 ml .ROUTE .STK- MED ONE Stop: 05/30/16 06:16 Last Admin: 05/30/16 08:13 Dose: 30 ml Cefazolin Sodium (Ancef) Confirm Administered Dose 2 gm .ROUTE .STK-MED ONE Stop: 05/30/16 06:17 Last Admin: 05/30/16 08:07 Dose: 2 gm Cefazolin Sodium (Ancef) Confirm Administered Dose 2 gm .ROUTE .STK-MED ONE Stop: 05/30/16 06:15 Morphine Sulfate 8 mg/Epinephrine HCl 0.3 mg/Cefuroxime Sodium 750 mg/Ketorolac Tromethamine 30 mg/Sodium Chloride 27.9 ml 0 mg .XX ONETIME ONE Stop: 05/30/16 07:46 Last Admin: 05/30/16 08:11 Dose: 788.3 mg Diphtheria/Tetanus/Acell Pertussis (Boostrix) 0.5 ml IM .ONCE ONE Stop: 05/30/16 10:12 Famotidine (Pepcid) 20 mg PO Q12H [facility] Last Admin: 05/31/16 08:59 Dose: 20 mg Fentanyl (Sublimaze) Confirm Administered Dose 100 mcg .ROUTE .STK-MED ONE Stop: 05/30/16 06:18 Fentanyl (Sublimaze) 50 mcg IVPUSH Q5M PRN PRN Reason: pain Stop: 05/30/16 12:00 Last Admin: 05/30/16 09:00 Dose: 50 mcg Hydromorphone HCl (Dilaudid) 0.5 mg IVPUSH Q15M PRN PRN Reason: Pain (severe 7-10) Stop: 05/30/16 06:41 Lactated Ringer's (Ringers, Lactated) 1,000 mls @ 125 mls/hr IV ASDIRECTED [facility] Last Admin: 05/30/16 06:36 Dose: 125 mls/hr Sodium Chloride (Normal Saline) Confirm Administered Dose 10 mls @ as directed .ROUTE .STK-MED ONE Stop: 05/30/16 06:17 Cefazolin Sodium/Dextrose 2 gm (/ Premix) 50 mls @ 100 mls/hr IV Q8H [facility] Stop: 05/31/16 06:29 Last Admin: 05/31/16 05:04 Dose: 100 mls/hr Lactated Ringer's (Ringers, Lactated) Confirm Administered Dose 1,000 mls @ as directed .ROUTE .STK-MED ONE Stop: 05/30/16 08:31 Lactated Ringer's (Ringers, Lactated) Confirm Administered Dose 1,000 mls @ as directed .ROUTE .STK-MED ONE Stop: 05/30/16 08:31 Iodine (Iodine 2% Mild Tincture) Confirm Administered Dose 30 ml .ROUTE .STK- MED ONE Stop: 05/30/16 06:16 Last Admin: 05/30/16 08:04 Dose: 18 ml Ketorolac Tromethamine (Toradol) 15 mg IVPUSH Q8H PRN PRN Reason: Pain Stop: 05/31/16 01:43 Last Admin: 05/30/16 18:29 Dose: 15 mg Ketorolac Tromethamine (Toradol) 15 mg IVPUSH ONETIME ONE Stop: 05/31/16 05:50 Last Admin: 05/31/16 06:08 Dose: 15 mg Lidocaine/Sodium Bicarbonate (Buffered Lidocaine 1% In Ns 8.4%) 0.25 ml IV ONETIME PRN PRN Reason: Prior to IV Start Last Admin: 05/30/16 06:36 Dose: 0.25 ml Midazolam HCl (Versed 1 Mg/Ml) Confirm Administered Dose 2 mg .ROUTE .STK-MED ONE Stop: 05/30/16 06:18 Morphine Sulfate (Duramorph Pf) Confirm Administered Dose 10 mg .ROUTE .STK-MED ONE Stop: 05/30/16 06:19 Morphine Sulfate (Morphine) 2 mg IVPUSH ONETIME ONE Stop: 05/30/16 13:46 Last Admin: 05/30/16 12:47 Dose: 2 mg Naloxone HCl (Narcan) 0.1 mg IVPUSH Q5M PRN PRN Reason: Oversedation Stop: 05/30/16 06:58 Non-Formulary Medication (Duloxetine) 60 mg PO DAILY [facility] Non-Formulary Medication (Diltiazem Hcl [Diltiazem Er]) 240 mg PO DAILY [facility] Non-Formulary Medication (Docusate Sodium [Stool Softener]) 150 mg PO BID [facility] Last Admin: 05/31/16 08:06 Dose: Not Given Non-Formulary Medication (Estrogens, Conjugated) 12.5 mcg VAG DAILY [facility] Ondansetron HCl (Zofran) 4 mg IVPUSH ONETIME PRN PRN Reason: Nausea/Vomiting Stop: 05/30/16 12:00 Oxycodone/Acetaminophen (Percocet 325-5 Mg) 1 - 2 tab PO Q4H PRN PRN Reason: Pain Last Admin: 05/31/16 04:48 Dose: 2 tab Pneumococcal 13-Valent Conj Vacc (Prevnar 13) 0.5 ml IM .ONCE ONE Stop: 05/30/16 10:13 Propofol (Diprivan 20 Ml) Confirm Administered Dose 200 mg .ROUTE .STK-MED ONE Stop: 05/30/16 06:17 Propofol (Diprivan 20 Ml) Confirm Administered Dose 200 mg .ROUTE .STK-MED ONE Stop: 05/30/16 07:31 Tranexamic Acid (Cyklokapron) Confirm Administered Dose 1,000 mg .ROUTE .STK- MED ONE Stop: 05/30/16 06:15 Last Admin: 05/30/16 08:15 Dose: 1,000 mg - Exam Wound/Incisions: dressing dry and intact General: alert, cooperative, no acute distress Lungs: Normal respiratory effort Extremities: normal pulses, no calf tenderness, other (NVS intact for BLE. Felicitas's negative.) - Problem List Review Problem List Initiated/Reviewed/Updated: Yes - My Orders Last 24 Hours: Active Orders 24 hr Category Date Time Status Amitriptyline [Elavil] Med 05/31/16 09:00 Active 50 mg PO DAILY Cyanocobalamin (Vitamin B12) [Vitamin B12] Med 05/31/16 09:00 Active 1,000 mcg PO DAILY Cyclobenzaprine [Flexeril] Med 05/30/16 15:52 Active 10 mg PO TID PRN DULoxetine [Cymbalta] Med 05/31/16 09:00 Active 90 mg PO DAILY Diltiazem [Dilacor XR] Med 05/31/16 09:00 Active 240 mg PO DAILY Docusate Sodium [Colace] Med 05/30/16 21:00 Active 100 mg PO BID Docusate Sodium/Sennosides [Senna Plus] Med 05/30/16 21:00 Active 1 tab PO BID HYDROmorphone [Dilaudid] Med 05/31/16 06:45 Active 2 mg PO Q4H PRN Multivitamins,Therapeutic [Thera] Med 05/30/16 21:00 Active 1 each PO BID Multivitamins/Min/FA/Lut/Zeax [ICaps MV] Med 05/31/16 09:00 Active 1 tab PO DAILY Pantoprazole [Protonix] Med 05/31/16 09:00 Active 40 mg PO DAILY Rivaroxaban [Xarelto] Med 05/31/16 09:00 Active 10 mg PO DAILY Simvastatin [Zocor] Med 05/30/16 21:00 Active 10 mg PO BEDTIME buPROPion [Wellbutrin XL] Med 05/31/16 09:00 Active 150 mg PO DAILY K Pad [Heat Therapy] [OM.PC] Routine Oth 05/31/16 05:52 Ordered Medication Orders Amitriptyline HCl (Elavil) 50 mg PO DAILY [facility] Last Admin: 05/31/16 09:08 Dose: Not Given Bisacodyl (Dulcolax) 5 mg PO DAILY PRN PRN Reason: Constipation Bupropion HCl (Wellbutrin Xl) 150 mg PO DAILY [facility] Last Admin: 05/31/16 09:00 Dose: 150 mg Cyanocobalamin (Vitamin B12) 1,000 mcg PO DAILY [facility] Last Admin: 05/31/16 08:59 Dose: 1,000 mcg Cyclobenzaprine HCl (Flexeril) 10 mg PO TID PRN PRN Reason: Spasms Last Admin: 05/31/16 11:51 Dose: 10 mg Admin: 05/31/16 04:12 Dose: 10 mg Admin: 05/30/16 21:25 Dose: 10 mg Admin: 05/30/16 16:10 Dose: 10 mg Diltiazem HCl (Dilacor Xr) 240 mg PO DAILY [facility] Last Admin: 05/31/16 08:59 Dose: 240 mg Diphenhydramine HCl (Benadryl) 25 mg IVPUSH Q6H PRN PRN Reason: itching Docusate Sodium (Colace) 100 mg PO BID [facility] Last Admin: 05/31/16 08:59 Dose: 100 mg Admin: 05/30/16 21:22 Dose: 100 mg Duloxetine HCl (Cymbalta) 90 mg PO DAILY [facility] Last Admin: 05/31/16 08:59 Dose: 90 mg Hydromorphone HCl (Dilaudid) 2 mg PO Q4H PRN PRN Reason: Pain Last Admin: 05/31/16 10:40 Dose: 2 mg Admin: 05/31/16 06:45 Dose: 2 mg Magnesium Hydroxide (Milk Of Magnesia) 30 ml PO BID PRN PRN Reason: Constipation Morphine Sulfate (Morphine) 2 mg IVPUSH Q2H PRN PRN Reason: Breakthrough Pain Last Admin: 05/31/16 11:51 Dose: 2 mg Admin: 05/31/16 09:00 Dose: 2 mg Admin: 05/31/16 04:14 Dose: 2 mg Admin: 05/30/16 21:17 Dose: 2 mg Multivitamins (Thera) 1 each PO BID [facility] Last Admin: 05/31/16 08:59 Dose: 1 each Admin: 05/30/16 21:22 Dose: 1 each Ondansetron HCl (Zofran) 4 mg IVPUSH Q6H PRN PRN Reason: Nausea/Vomiting Last Admin: 05/31/16 07:02 Dose: 4 mg Pantoprazole Sodium (Protonix) 40 mg PO DAILY [facility] Last Admin: 05/31/16 08:59 Dose: 40 mg Rivaroxaban (Xarelto) 10 mg PO DAILY [facility] Last Admin: 05/31/16 08:59 Dose: 10 mg Senna (Senna) 8.6 mg PO BID PRN PRN Reason: Constipation Senna/Docusate Sodium (Senna Plus) 1 tab PO BID [facility] Last Admin: 05/31/16 08:59 Dose: 1 tab Admin: 05/30/16 21:26 Dose: 1 tab Simvastatin (Zocor) 10 mg PO BEDTIME [facility] Last Admin: 05/30/16 21:25 Dose: 10 mg Sodium Chloride (Saline Flush) 10 ml FLUSH ASDIRECTED PRN PRN Reason: Keep Vein Open Last Admin: 05/30/16 14:52 Dose: 10 ml Vit A/Vit C/Vit E/Selen/Cu/Zn/Lutei (Icaps Mv) 1 tab PO DAILY [facility] Last Admin: 05/31/16 08:59 Dose: 1 tab - Assessment Assessment (Free Text/Narrative):: POD#1 - left TKA - Plan Plan (Free Text/Narrative):: 1. Hgb 9.9. 2. Xarelto, frequent mobility, TEDs. 3. Discharge to home today if pain controlled. The pt has noted improved pain control with PO Dilaudid. 4. Outpatient P.T. upon discharge. The pt's case was discussed with Dr. Escalera today.
[2016-05-31] MEDS: oxyCODONE 5 MG Tab PO PRN ×2 (14:24→18:38)
[2016-05-31] MEDS: Simvastatin 10 MG Tab PO SCH (20:27)
[2016-06-01] MEDS: oxyCODONE 5 MG Tab PO PRN ×2 (00:32→08:28)
[2016-06-01] MEDS: HYDROmorphone 2 MG Tab PO PRN ×2 (05:20→11:09)
[2016-06-01] MEDS: Cyclobenzaprine 10 MG Tab PO PRN ×2 (05:54→13:56)
[2016-06-01] MEDS: Docusate Sodium 100 MG Cap PO SCH (08:26)
[2016-06-01] MEDS: Multivitamins with Minerals/Folic Acid/Lutein/Zeaxanth Tab PO SCH (08:27)
[2016-06-01] MEDS: Multivitamins,Therapeutic Tab PO SCH (08:27)
[2016-06-01] MEDS: Diltiazem 240 MG Cap.ER PO SCH (08:27)
[2016-06-01] MEDS: Cyanocobalamin (Vitamin B12) 1,000 MCG Tab PO SCH (08:27)
[2016-06-01] MEDS: Rivaroxaban 10 MG Tab PO SCH (08:27)
[2016-06-01] MEDS: DULoxetine 30 MG Cap PO SCH (08:27)
[2016-06-01] MEDS: Amitriptyline 25 MG Tab PO SCH (08:27)
[2016-06-01] MEDS: buPROPion 150 MG Tab.ER PO SCH (08:27)
[2016-06-01] MEDS: Pantoprazole 40 MG Tab.CR PO SCH (08:27)
[2016-06-01 11:50] VITALS: BP 116/87
--- NOTE | 2016-06-01 14:50 | PCM.CONSN ---
- General Info Date of Service: 06/01/16 Admission Dx/Problem (Free Text): Admission Diagnosis/Problem Admission Diagnosis/Problem Osteoarthritis of knee POD #[address] Escalera Doing well; pain under better control with med changes. No nausea. No new s/s of CP, palpitations, SOB, abd pain. Working with PT/OT. Supplemental oxygen due to hypoxia; will attempt to wean prior to dc home today. Functional Status: Reports: tolerating diet, ambulating, urinating - Review of Systems General: Reports: No Symptoms HEENT: Reports: no symptoms Pulmonary: Reports: no symptoms Cardiovascular: Reports: No Symptoms Gastrointestinal: Reports: No symptoms Genitourinary: Reports: no symptoms Musculoskeletal: Reports: leg pain Skin: Reports: no symptoms Neurological: Reports: No Symptoms Psychiatric: Reports: no symptoms - Patient Data Vitals - most recent: Last Vital Signs Temp 98.6 F 06/01/16 11:29 Pulse 79 06/01/16 11:29 Resp 18 06/01/16 11:29 BP 116/87 06/01/16 11:29 Pulse Ox 93 L 06/01/16 11:58 Weight - most recent: 150 lb I&O - last 24 hours: Intake & Output 05/31/16 06/01/16 06/01/16 22:59 06:59 14:59 Intake Total 800 1150 0 Output Total 1200 1200 Balance -400 -50 0 Lab Results last 24 hrs: Laboratory Results - last 24 hr 06/01/16 06/01/16 Range/Units 08:26 08:26 WBC 14.11 H (3.98-10.04) K/mm3 RBC 3.31 L (3.98-5.22) M/mm3 Hgb 9.9 L (11.2-15.7) gm/L Hct 30.7 L (34.1-44.9) % MCV 92.7 (79.4-94.8) fl MCH 29.9 (25.6-32.2) pg MCHC 32.2 (32.2-35.5) g/dl RDW Std Deviation 46.3 (36.4-46.3) fL Plt Count 257 (182-369) K/mm3 MPV 10.4 (9.4-12.3) fl Neut % (Auto) 70.1 (34.0-71.1) % Lymph % (Auto) 14.6 L (19.3-51.7) % [place] % (Auto) 14.3 H (4.7-12.5) % Eos % (Auto) 0.6 L (0.7-5.8) Baso % (Auto) 0.2 (0.1-1.2) % Neut # 9.88 H (1.56-6.13) K/mm3 Lymph # 2.06 (1.18-3.74) K/mm3 [place] # 2.02 H (0.24-0.36) K/mm3 Eos # 0.09 (0.04-0.36) K/mm3 Baso # 0.03 (0.01-0.08) K/mm3 Manual Slide Review Abnormal smear Sodium 135 L (136-145) mEq/L Potassium 3.9 (3.5-5.1) mEq/L Chloride 100 (98-107) mEq/L Carbon Dioxide 27 (21-32) mEq/L Anion Gap 11.9 (5-15) BUN 12 (7-18) mg/dL Creatinine 1.0 (0.55-1.02) mg/dL Est Cr Clr Drug Dosing 45.85 mL/min Estimated GFR (MDRD) 55 (>60) mL/min BUN/Creatinine Ratio 12.0 L (14-18) Glucose 135 H (80-115) mg/dL Calcium 9.2 (8.5-10.1) mg/dL Med Orders - Current: Current Medications Amitriptyline HCl (Elavil) 50 mg PO DAILY [facility] Last Admin: 06/01/16 08:27 Dose: Not Given Bisacodyl (Dulcolax) 5 mg PO DAILY PRN PRN Reason: Constipation Bupropion HCl (Wellbutrin Xl) 150 mg PO DAILY [facility] Last Admin: 06/01/16 08:27 Dose: 150 mg Cyanocobalamin (Vitamin B12) 1,000 mcg PO DAILY [facility] Last Admin: 06/01/16 08:27 Dose: 1,000 mcg Cyclobenzaprine HCl (Flexeril) 10 mg PO TID PRN PRN Reason: Spasms Last Admin: 06/01/16 13:56 Dose: 10 mg Diltiazem HCl (Dilacor Xr) 240 mg PO DAILY [facility] Last Admin: 06/01/16 08:27 Dose: 240 mg Diphenhydramine HCl (Benadryl) 25 mg IVPUSH Q6H PRN PRN Reason: itching Docusate Sodium (Colace) 100 mg PO BID [facility] Last Admin: 06/01/16 08:26 Dose: 100 mg Duloxetine HCl (Cymbalta) 90 mg PO DAILY [facility] Last Admin: 06/01/16 08:27 Dose: 90 mg Hydromorphone HCl (Dilaudid) 4 mg PO Q4H PRN PRN Reason: Pain Last Admin: 06/01/16 11:09 Dose: 4 mg Magnesium Hydroxide (Milk Of Magnesia) 30 ml PO BID PRN PRN Reason: Constipation Multivitamins (Thera) 1 each PO BID [facility] Last Admin: 06/01/16 08:27 Dose: 1 each Ondansetron HCl (Zofran) 4 mg IVPUSH Q6H PRN PRN Reason: Nausea/Vomiting Last Admin: 05/31/16 07:02 Dose: 4 mg Pantoprazole Sodium (Protonix) 40 mg PO DAILY [facility] Last Admin: 06/01/16 08:27 Dose: 40 mg Rivaroxaban (Xarelto) 10 mg PO DAILY [facility] Last Admin: 06/01/16 08:27 Dose: 10 mg Senna (Senna) 8.6 mg PO BID PRN PRN Reason: Constipation Senna/Docusate Sodium (Senna Plus) 1 tab PO BID [facility] Last Admin: 06/01/16 08:27 Dose: 1 tab Simvastatin (Zocor) 10 mg PO BEDTIME [facility] Last Admin: 05/31/16 20:27 Dose: 10 mg Sodium Chloride (Saline Flush) 10 ml FLUSH ASDIRECTED PRN PRN Reason: Keep Vein Open Last Admin: 05/30/16 14:52 Dose: 10 ml Vit A/Vit C/Vit E/Selen/Cu/Zn/Lutei (Icaps Mv) 1 tab PO DAILY [facility] Last Admin: 06/01/16 08:27 Dose: 1 tab Discontinued Medications Bupivacaine HCl (Marcaine 0.25%) Confirm Administered Dose 30 ml .ROUTE .STK- MED ONE Stop: 05/30/16 06:16 Last Admin: 05/30/16 08:13 Dose: 30 ml Cefazolin Sodium (Ancef) Confirm Administered Dose 2 gm .ROUTE .STK-MED ONE Stop: 05/30/16 06:17 Last Admin: 05/30/16 08:07 Dose: 2 gm Cefazolin Sodium (Ancef) Confirm Administered Dose 2 gm .ROUTE .STK-MED ONE Stop: 05/30/16 06:15 Morphine Sulfate 8 mg/Epinephrine HCl 0.3 mg/Cefuroxime Sodium 750 mg/Ketorolac Tromethamine 30 mg/Sodium Chloride 27.9 ml 0 mg .XX ONETIME ONE Stop: 05/30/16 07:46 Last Admin: 05/30/16 08:11 Dose: 788.3 mg Diphtheria/Tetanus/Acell Pertussis (Boostrix) 0.5 ml IM .ONCE ONE Stop: 05/30/16 10:12 Famotidine (Pepcid) 20 mg PO Q12H [facility] Last Admin: 05/31/16 08:59 Dose: 20 mg Fentanyl (Sublimaze) Confirm Administered Dose 100 mcg .ROUTE .STK-MED ONE Stop: 05/30/16 06:18 Fentanyl (Sublimaze) 50 mcg IVPUSH Q5M PRN PRN Reason: pain Stop: 05/30/16 12:00 Last Admin: 05/30/16 09:00 Dose: 50 mcg Hydromorphone HCl (Dilaudid) 0.5 mg IVPUSH Q15M PRN PRN Reason: Pain (severe 7-10) Stop: 05/30/16 06:41 Hydromorphone HCl (Dilaudid) 2 mg PO Q4H PRN PRN Reason: Pain Last Admin: 05/31/16 16:54 Dose: 2 mg Lactated Ringer's (Ringers, Lactated) 1,000 mls @ 125 mls/hr IV ASDIRECTED [facility] Last Admin: 05/30/16 06:36 Dose: 125 mls/hr Sodium Chloride (Normal Saline) Confirm Administered Dose 10 mls @ as directed .ROUTE .STK-MED ONE Stop: 05/30/16 06:17 Cefazolin Sodium/Dextrose 2 gm (/ Premix) 50 mls @ 100 mls/hr IV Q8H [facility] Stop: 05/31/16 06:29 Last Admin: 05/31/16 05:04 Dose: 100 mls/hr Lactated Ringer's (Ringers, Lactated) Confirm Administered Dose 1,000 mls @ as directed .ROUTE .STK-MED ONE Stop: 05/30/16 08:31 Lactated Ringer's (Ringers, Lactated) Confirm Administered Dose 1,000 mls @ as directed .ROUTE .STK-MED ONE Stop: 05/30/16 08:31 Iodine (Iodine 2% Mild Tincture) Confirm Administered Dose 30 ml .ROUTE .STK- MED ONE Stop: 05/30/16 06:16 Last Admin: 05/30/16 08:04 Dose: 18 ml Ketorolac Tromethamine (Toradol) 15 mg IVPUSH Q8H PRN PRN Reason: Pain Stop: 05/31/16 01:43 Last Admin: 05/30/16 18:29 Dose: 15 mg Ketorolac Tromethamine (Toradol) 15 mg IVPUSH ONETIME ONE Stop: 05/31/16 05:50 Last Admin: 05/31/16 06:08 Dose: 15 mg Lidocaine/Sodium Bicarbonate (Buffered Lidocaine 1% In Ns 8.4%) 0.25 ml IV ONETIME PRN PRN Reason: Prior to IV Start Last Admin: 05/30/16 06:36 Dose: 0.25 ml Midazolam HCl (Versed 1 Mg/Ml) Confirm Administered Dose 2 mg .ROUTE .STK-MED ONE Stop: 05/30/16 06:18 Morphine Sulfate (Duramorph Pf) Confirm Administered Dose 10 mg .ROUTE .STK-MED ONE Stop: 05/30/16 06:19 Morphine Sulfate (Morphine) 2 mg IVPUSH Q2H PRN PRN Reason: Breakthrough Pain Last Admin: 05/31/16 14:24 Dose: 2 mg Morphine Sulfate (Morphine) 2 mg IVPUSH ONETIME ONE Stop: 05/30/16 13:46 Last Admin: 05/30/16 12:47 Dose: 2 mg Naloxone HCl (Narcan) 0.1 mg IVPUSH Q5M PRN PRN Reason: Oversedation Stop: 05/30/16 06:58 Non-Formulary Medication (Duloxetine) 60 mg PO DAILY [facility] Non-Formulary Medication (Diltiazem Hcl [Diltiazem Er]) 240 mg PO DAILY [facility] Non-Formulary Medication (Docusate Sodium [Stool Softener]) 150 mg PO BID [facility] Last Admin: 05/31/16 08:06 Dose: Not Given Non-Formulary Medication (Estrogens, Conjugated) 12.5 mcg VAG DAILY [facility] Ondansetron HCl (Zofran) 4 mg IVPUSH ONETIME PRN PRN Reason: Nausea/Vomiting Stop: 05/30/16 12:00 Oxycodone HCl (Oxycodone) 5 mg PO Q4H PRN PRN Reason: Pain Last Admin: 06/01/16 08:28 Dose: 5 mg Oxycodone/Acetaminophen (Percocet 325-5 Mg) 1 - 2 tab PO Q4H PRN PRN Reason: Pain Last Admin: 05/31/16 04:48 Dose: 2 tab Pneumococcal 13-Valent Conj Vacc (Prevnar 13) 0.5 ml IM .ONCE ONE Stop: 05/30/16 10:13 Propofol (Diprivan 20 Ml) Confirm Administered Dose 200 mg .ROUTE .STK-MED ONE Stop: 05/30/16 06:17 Propofol (Diprivan 20 Ml) Confirm Administered Dose 200 mg .ROUTE .STK-MED ONE Stop: 05/30/16 07:31 Tranexamic Acid (Cyklokapron) Confirm Administered Dose 1,000 mg .ROUTE .STK- MED ONE Stop: 05/30/16 06:15 Last Admin: 05/30/16 08:15 Dose: 1,000 mg - Exam Quality Assessment: supplemental oxygen, DVT prophylaxis General: alert, oriented, cooperative, no acute distress HEENT: Pupils equal, Pupils reactive, EOMI, Mucous membr. moist/pink Neck: supple Lungs: Clear to auscultation, Normal respiratory effort Cardiovascular: Regular Rate, Regular Rhythm Extremities: no edema, no calf tenderness, other (SCD's ice to knee) Peripheral Pulses: 1+: dorsalis pedis (L), dorsalis pedis (R) Skin: warm, dry Neurological: no new focal deficit Psy/Mental Status: alert, normal affect, normal mood Consult PN Assessment/Plan POD#: 2 Procedures: Procedures BONE IMAGING (3D) (11/11/15) BONE IMAGING WHOLE BODY (11/11/15) MRI NECK SPINE W/O DYE (12/31/15) REPAIR BLADDER & VAGINA (10/07/14) (1) S/P total knee arthroplasty SNOMED Code(s): 7115227193657, 889582083, 5144665243850 Code(s): Z96.659 - PRESENCE OF UNSPECIFIED ARTIFICIAL KNEE JOINT Priority: High Current Visit: Yes Qualifiers: Laterality: left Qualified Code(s): Z96.652 - Presence of left artificial knee joint (2) Osteoarthritis SNOMED Code(s): 062484963 Code(s): M19.90 - UNSPECIFIED OSTEOARTHRITIS, UNSPECIFIED SITE Current Visit: Yes Qualifiers: Osteoarthritis location: knee Osteoarthritis type: primary Laterality: left Qualified Code(s): M17.12 - Unilateral primary osteoarthritis, left knee (3) HTN (hypertension) SNOMED Code(s): 63753958 Code(s): I10 - ESSENTIAL (PRIMARY) HYPERTENSION Priority: Medium Current Visit: Yes Qualifiers: Hypertension type: essential hypertension Qualified Code(s): I10 - Essential (primary) hypertension (4) HLD (hyperlipidemia) SNOMED Code(s): 53066133 Code(s): E78.5 - HYPERLIPIDEMIA, UNSPECIFIED Priority: Medium Current Visit: No Qualifiers: Hyperlipidemia type: unspecified Qualified Code(s): E78.5 - Hyperlipidemia , unspecified (5) Asthma SNOMED Code(s): 327583710 Code(s): J45.909 - UNSPECIFIED ASTHMA, UNCOMPLICATED Priority: Medium Current Visit: No Qualifiers: Asthma severity: unspecified severity Asthma complication type: uncomplicated Qualified Code(s): J45.909 - Unspecified asthma, uncomplicated (6) GERD (gastroesophageal reflux disease) SNOMED Code(s): 465493716 Code(s): K21.9 - GASTRO-ESOPHAGEAL REFLUX DISEASE WITHOUT ESOPHAGITIS Priority: Medium Current Visit: No Qualifiers: Esophagitis presence: esophagitis presence not specified Qualified Code(s) : K21.9 - Gastro-esophageal reflux disease without esophagitis (7) Depression SNOMED Code(s): 81776588 Code(s): F32.9 - MAJOR DEPRESSIVE DISORDER, SINGLE EPISODE, UNSPECIFIED Priority: Medium Current Visit: No Qualifiers: Depression Type: unspecified Qualified Code(s): F32.9 - Major depressive disorder, single episode, unspecified (8) Anxiety SNOMED Code(s): 49994997 Code(s): F41.9 - ANXIETY DISORDER, UNSPECIFIED Priority: Medium Current Visit: No (9) Hypoxia SNOMED Code(s): 706774596, 332596097 Code(s): R09.02 - HYPOXEMIA Priority: High Current Visit: Yes Problem List Initiated/Reviewed/Updated: Yes My Orders last 24 hours: My Active Orders 06/01/16 13:50 Ready for Discharge [RC] PER UNIT ROUTINE Plan: Assessment/Plan POD #[address] Escalera -Pain managment and DVT prophylax per primary team/Ortho -Labs stable - Plan dc home today Hypoxia postoperatively, hx of asthma - likely contributing is narcotic use postoperatively - RT to qualify for home oxygen- paperwork completed - Follow up with PCP within 5 days for recheck of lungs/oxygen saturations Chronic conditions: Stable- cont home meds HTN- good control HLD Asthma Depression Anxiety GERD Other: PT/OT CM/SW for assistance with DC planning OK for dc home today from hospitalist standpoint if ok with PT and Ortho Full Code Status
--- NOTE | 2016-06-01 22:05 | PCM.SURGPN ---
- General Info Date of Service: 06/01/16 POD#: 2 Functional Status: Reports: tolerating diet, ambulating, urinating, other (The pt was placed on O2 overnight. ) - Review of Systems Musculoskeletal: Reports: other (The pt notes improved pain control with PO Dilaudid. ) - Patient Data Vitals - most recent: Last Vital Signs Temp 98.6 F 06/01/16 11:29 Pulse 79 06/01/16 11:29 Resp 18 06/01/16 11:29 BP 116/87 06/01/16 11:29 Pulse Ox 93 L 06/01/16 11:58 Weight - most recent: 150 lb I&O - last 24 hours: Intake & Output 06/01/16 06/01/16 06/01/16 06:59 14:59 22:59 Intake Total 1150 0 0 Output Total 1200 Balance -50 0 0 Lab Results last 24 hrs: Laboratory Results - last 24 hr 06/01/16 06/01/16 Range/Units 08:26 08:26 WBC 14.11 H (3.98-10.04) K/mm3 RBC 3.31 L (3.98-5.22) M/mm3 Hgb 9.9 L (11.2-15.7) gm/L Hct 30.7 L (34.1-44.9) % MCV 92.7 (79.4-94.8) fl MCH 29.9 (25.6-32.2) pg MCHC 32.2 (32.2-35.5) g/dl RDW Std Deviation 46.3 (36.4-46.3) fL Plt Count 257 (182-369) K/mm3 MPV 10.4 (9.4-12.3) fl Neut % (Auto) 70.1 (34.0-71.1) % Lymph % (Auto) 14.6 L (19.3-51.7) % [place] % (Auto) 14.3 H (4.7-12.5) % Eos % (Auto) 0.6 L (0.7-5.8) Baso % (Auto) 0.2 (0.1-1.2) % Neut # 9.88 H (1.56-6.13) K/mm3 Lymph # 2.06 (1.18-3.74) K/mm3 [place] # 2.02 H (0.24-0.36) K/mm3 Eos # 0.09 (0.04-0.36) K/mm3 Baso # 0.03 (0.01-0.08) K/mm3 Manual Slide Review Abnormal smear Sodium 135 L (136-145) mEq/L Potassium 3.9 (3.5-5.1) mEq/L Chloride 100 (98-107) mEq/L Carbon Dioxide 27 (21-32) mEq/L Anion Gap 11.9 (5-15) BUN 12 (7-18) mg/dL Creatinine 1.0 (0.55-1.02) mg/dL Est Cr Clr Drug Dosing 45.85 mL/min Estimated GFR (MDRD) 55 (>60) mL/min BUN/Creatinine Ratio 12.0 L (14-18) Glucose 135 H (80-115) mg/dL Calcium 9.2 (8.5-10.1) mg/dL Med Orders - Current: Current Medications Discontinued Medications Amitriptyline HCl (Elavil) 50 mg PO DAILY [facility] Last Admin: 06/01/16 08:27 Dose: Not Given Bisacodyl (Dulcolax) 5 mg PO DAILY PRN PRN Reason: Constipation Bupivacaine HCl (Marcaine 0.25%) Confirm Administered Dose 30 ml .ROUTE .STK- MED ONE Stop: 05/30/16 06:16 Last Admin: 05/30/16 08:13 Dose: 30 ml Bupropion HCl (Wellbutrin Xl) 150 mg PO DAILY [facility] Last Admin: 06/01/16 08:27 Dose: 150 mg Cefazolin Sodium (Ancef) Confirm Administered Dose 2 gm .ROUTE .STK-MED ONE Stop: 05/30/16 06:17 Last Admin: 05/30/16 08:07 Dose: 2 gm Cefazolin Sodium (Ancef) Confirm Administered Dose 2 gm .ROUTE .STK-MED ONE Stop: 05/30/16 06:15 Morphine Sulfate 8 mg/Epinephrine HCl 0.3 mg/Cefuroxime Sodium 750 mg/Ketorolac Tromethamine 30 mg/Sodium Chloride 27.9 ml 0 mg .XX ONETIME ONE Stop: 05/30/16 07:46 Last Admin: 05/30/16 08:11 Dose: 788.3 mg Cyanocobalamin (Vitamin B12) 1,000 mcg PO DAILY [facility] Last Admin: 06/01/16 08:27 Dose: 1,000 mcg Cyclobenzaprine HCl (Flexeril) 10 mg PO TID PRN PRN Reason: Spasms Last Admin: 06/01/16 13:56 Dose: 10 mg Diltiazem HCl (Dilacor Xr) 240 mg PO DAILY [facility] Last Admin: 06/01/16 08:27 Dose: 240 mg Diphenhydramine HCl (Benadryl) 25 mg IVPUSH Q6H PRN PRN Reason: itching Diphtheria/Tetanus/Acell Pertussis (Boostrix) 0.5 ml IM .ONCE ONE Stop: 05/30/16 10:12 Docusate Sodium (Colace) 100 mg PO BID [facility] Last Admin: 06/01/16 08:26 Dose: 100 mg Duloxetine HCl (Cymbalta) 90 mg PO DAILY [facility] Last Admin: 06/01/16 08:27 Dose: 90 mg Famotidine (Pepcid) 20 mg PO Q12H [facility] Last Admin: 05/31/16 08:59 Dose: 20 mg Fentanyl (Sublimaze) Confirm Administered Dose 100 mcg .ROUTE .STK-MED ONE Stop: 05/30/16 06:18 Fentanyl (Sublimaze) 50 mcg IVPUSH Q5M PRN PRN Reason: pain Stop: 05/30/16 12:00 Last Admin: 05/30/16 09:00 Dose: 50 mcg Hydromorphone HCl (Dilaudid) 0.5 mg IVPUSH Q15M PRN PRN Reason: Pain (severe 7-10) Stop: 05/30/16 06:41 Hydromorphone HCl (Dilaudid) 2 mg PO Q4H PRN PRN Reason: Pain Last Admin: 05/31/16 16:54 Dose: 2 mg Hydromorphone HCl (Dilaudid) 4 mg PO Q4H PRN PRN Reason: Pain Last Admin: 06/01/16 11:09 Dose: 4 mg Lactated Ringer's (Ringers, Lactated) 1,000 mls @ 125 mls/hr IV ASDIRECTED [facility] Last Admin: 05/30/16 06:36 Dose: 125 mls/hr Sodium Chloride (Normal Saline) Confirm Administered Dose 10 mls @ as directed .ROUTE .STK-MED ONE Stop: 05/30/16 06:17 Cefazolin Sodium/Dextrose 2 gm (/ Premix) 50 mls @ 100 mls/hr IV Q8H [facility] Stop: 05/31/16 06:29 Last Admin: 05/31/16 05:04 Dose: 100 mls/hr Lactated Ringer's (Ringers, Lactated) Confirm Administered Dose 1,000 mls @ as directed .ROUTE .STK-MED ONE Stop: 05/30/16 08:31 Lactated Ringer's (Ringers, Lactated) Confirm Administered Dose 1,000 mls @ as directed .ROUTE .STK-MED ONE Stop: 05/30/16 08:31 Iodine (Iodine 2% Mild Tincture) Confirm Administered Dose 30 ml .ROUTE .STK- MED ONE Stop: 05/30/16 06:16 Last Admin: 05/30/16 08:04 Dose: 18 ml Ketorolac Tromethamine (Toradol) 15 mg IVPUSH Q8H PRN PRN Reason: Pain Stop: 05/31/16 01:43 Last Admin: 05/30/16 18:29 Dose: 15 mg Ketorolac Tromethamine (Toradol) 15 mg IVPUSH ONETIME ONE Stop: 05/31/16 05:50 Last Admin: 05/31/16 06:08 Dose: 15 mg Lidocaine/Sodium Bicarbonate (Buffered Lidocaine 1% In Ns 8.4%) 0.25 ml IV ONETIME PRN PRN Reason: Prior to IV Start Last Admin: 05/30/16 06:36 Dose: 0.25 ml Magnesium Hydroxide (Milk Of Magnesia) 30 ml PO BID PRN PRN Reason: Constipation Midazolam HCl (Versed 1 Mg/Ml) Confirm Administered Dose 2 mg .ROUTE .STK-MED ONE Stop: 05/30/16 06:18 Morphine Sulfate (Duramorph Pf) Confirm Administered Dose 10 mg .ROUTE .STK-MED ONE Stop: 05/30/16 06:19 Morphine Sulfate (Morphine) 2 mg IVPUSH Q2H PRN PRN Reason: Breakthrough Pain Last Admin: 05/31/16 14:24 Dose: 2 mg Morphine Sulfate (Morphine) 2 mg IVPUSH ONETIME ONE Stop: 05/30/16 13:46 Last Admin: 05/30/16 12:47 Dose: 2 mg Multivitamins (Thera) 1 each PO BID [facility] Last Admin: 06/01/16 08:27 Dose: 1 each Naloxone HCl (Narcan) 0.1 mg IVPUSH Q5M PRN PRN Reason: Oversedation Stop: 05/30/16 06:58 Non-Formulary Medication (Duloxetine) 60 mg PO DAILY [facility] Non-Formulary Medication (Diltiazem Hcl [Diltiazem Er]) 240 mg PO DAILY [facility] Non-Formulary Medication (Docusate Sodium [Stool Softener]) 150 mg PO BID [facility] Last Admin: 05/31/16 08:06 Dose: Not Given Non-Formulary Medication (Estrogens, Conjugated) 12.5 mcg VAG DAILY [facility] Ondansetron HCl (Zofran) 4 mg IVPUSH ONETIME PRN PRN Reason: Nausea/Vomiting Stop: 05/30/16 12:00 Ondansetron HCl (Zofran) 4 mg IVPUSH Q6H PRN PRN Reason: Nausea/Vomiting Last Admin: 05/31/16 07:02 Dose: 4 mg Oxycodone HCl (Oxycodone) 5 mg PO Q4H PRN PRN Reason: Pain Last Admin: 06/01/16 08:28 Dose: 5 mg Oxycodone/Acetaminophen (Percocet 325-5 Mg) 1 - 2 tab PO Q4H PRN PRN Reason: Pain Last Admin: 05/31/16 04:48 Dose: 2 tab Pantoprazole Sodium (Protonix) 40 mg PO DAILY [facility] Last Admin: 06/01/16 08:27 Dose: 40 mg Pneumococcal 13-Valent Conj Vacc (Prevnar 13) 0.5 ml IM .ONCE ONE Stop: 05/30/16 10:13 Propofol (Diprivan 20 Ml) Confirm Administered Dose 200 mg .ROUTE .STK-MED ONE Stop: 05/30/16 06:17 Propofol (Diprivan 20 Ml) Confirm Administered Dose 200 mg .ROUTE .STK-MED ONE Stop: 05/30/16 07:31 Rivaroxaban (Xarelto) 10 mg PO DAILY [facility] Last Admin: 06/01/16 08:27 Dose: 10 mg Senna (Senna) 8.6 mg PO BID PRN PRN Reason: Constipation Senna/Docusate Sodium (Senna Plus) 1 tab PO BID [facility] Last Admin: 06/01/16 08:27 Dose: 1 tab Simvastatin (Zocor) 10 mg PO BEDTIME [facility] Last Admin: 05/31/16 20:27 Dose: 10 mg Sodium Chloride (Saline Flush) 10 ml FLUSH ASDIRECTED PRN PRN Reason: Keep Vein Open Last Admin: 05/30/16 14:52 Dose: 10 ml Tranexamic Acid (Cyklokapron) Confirm Administered Dose 1,000 mg .ROUTE .STK- MED ONE Stop: 05/30/16 06:15 Last Admin: 05/30/16 08:15 Dose: 1,000 mg Vit A/Vit C/Vit E/Selen/Cu/Zn/Lutei (Icaps Mv) 1 tab PO DAILY [facility] Last Admin: 06/01/16 08:27 Dose: 1 tab - Exam Wound/Incisions: dressing dry and intact General: alert, cooperative, no acute distress Lungs: Normal respiratory effort Extremities: normal pulses, no calf tenderness, other (Near independent SLR LLE. Felicitas's negative. Mod swelling left knee. NVS intact for LLE.) - Problem List Review Problem List Initiated/Reviewed/Updated: Yes - My Orders Last 24 Hours: Active Orders 24 hr Category Date Time Status Ready for Discharge [RC] PER UNIT ROUTINE Care 06/01/16 13:50 Active - Assessment Assessment (Free Text/Narrative):: POD#2 - left TKA - Plan Plan (Free Text/Narrative):: 1. Discharge to home today. 2. Outpatient P.T. 3. Xarelto x 2 wk course and then transition to 325mg ASA BID. 4. Home O2 due to inability to wean from use during Hospital stay. 5. F/U with PCP in 1-2 days to discuss weaning from O2. 6. Dilaudid for pain management at home. Precautions with use of medication was discussed. The pt's case was discussed with Dr. Escalera and MD assisted with development of plan of care.
--- NOTE | 2016-06-07 13:11 | PCM.DCSUM1 ---
Discharge Summary - Hospital Course Brief History: Magali is a 70 yo female who underwent left TKA with Dr. Escalera on 05-30-16. The procedure was completed under spinal anesthesia. The pt tolerated the procedure well and was admitted to the Medical-Surgical Unit. Medical management was provided by the Hospitalist service. The pt's Hospital course was remarkable for low O2 saturations likely due to use of narcotic pain medication. The pt's Hgb on POD#1 was 9.9. On POD#1, Xarelto was initiated for VTE prophylaxis. A Mepilex dressing was placed at the incision site at the time of surgery and remained clean and dry. The pt participated in P.T. and O.T. The pt was allowed to WBAT. On POD#2, the pt was deemed appropriate to discharge to home with her . The pt was discharged on oxygen per nasal canula and was instructed to follow-up with her primary care provider. - Discharge Data Discharge Date: 06/01/16 Discharge Disposition: Home, Self-Care 01 Condition: Good - Patient Summary/Data Operative Procedure(s) Performed: left total knee arthroplasty Consults: Consultations 05/30/16 06:42 Consult to Case Management [CONS] Routine Consult to Physician [CONS] Routine OT Evaluation and Treatment [CONS] Routine 05/30/16 06:46 PT Evaluation and Treatment [CONS] Routine - Patient Instructions Diet: Usual Diet as Tolerated Activity: Apply Ice, As Tolerated, Elevate Extremity, Full Weight Bearing Driving: Do Not Drive Showering/Bathing: May Shower Wound/Incision Care: Keep Operative Site/Wound Site Clean and Dry, Do NOT Change Dressing Notify Provider of: Fever, Increased Pain, Swelling and Redness, Drainage, Nausea and/or Vomiting Other/Special Instructions: Please get up and moving around EVERY HOUR while awake. This helps to prevent blood clots. Please use your walker and have help with mobility as needed. Take the blood thinner medication - Xarelto - daily. Do the exercises you were taught in the Hospital. Schedule for P.T. Use the pain medication as needed. The medication may cause drowsiness and constipation. Contact your primary care provider for instructions if you are constipated. You may use a stool softener like docusate sodium or Colace 100mg twice daily and/or a laxative like Miralax daily for constipation. Use the ice machine often. Place a towel between the blue pad and your skin. Elevate the limb to decrease swelling. Keep the Mepilex dressing in place until follow-up at the Clinic. Notify the Clinic if the dressing is saturated. Wear the MOODY hose during the day and you may remove these at night. Schedule an appointment with your primary care provider for 'routine post-op care'. Call the Clinic with questions or concerns - [phone]. - Discharge Plan Prescriptions/Med Rec: Cyclobenzaprine [Flexeril] 10 mg PO TID PRN #40 tablet PRN Reason: muscle spasms HYDROmorphone [Dilaudid] 2 mg PO Q4H PRN #60 tablet PRN Reason: Pain Rivaroxaban [Xarelto] 10 mg PO DAILY #13 tablet Home Medications: Home Meds Amitriptyline [Elavil] 50 mg PO DAILY 10/06/14 [History] Cyanocobalamin (Vitamin B-12) [B-12] 1,000 mcg PO DAILY 10/06/14 [History] Docusate Sodium [Stool Softener] 150 mg PO BID 10/06/14 [History] Estrogens, Conjugated [Premarin] 12.5 mcg VAG DAILY 10/06/14 [History] Lutein/Min/Vit C/Vit E Acetate [Ocuvite Lutein] 1 mg PO DAILY 10/06/14 [History] Pravastatin [Pravachol] 20 mg PO DAILY 10/06/14 [History] Sennosides/Docusate Sodium [Senna-Docusate Sodium Tablet] 150 mg PO BID [History] buPROPion [Wellbutrin XL] 150 mg PO DAILY 10/06/14 [History] Diltiazem [Cardizem CD] 240 mg PO DAILY 05/27/16 [History] Multivitamin [Multivitamins] 1 cap PO BID 05/27/16 [History] Pantoprazole Sodium [Protonix] 40 mg PO DAILY 05/27/16 [History] Cyclobenzaprine [Flexeril] 10 mg PO TID PRN #40 tablet 05/31/16 [Rx] HYDROmorphone [Dilaudid] 2 mg PO Q4H PRN #60 tablet 05/31/16 [Rx] Rivaroxaban [Xarelto] 10 mg PO DAILY #13 tablet 05/31/16 [Rx] Patient Handouts: Rivaroxaban oral tablets, Total Knee Replacement, Care After , [id number], Total Knee Replacement, [id number], Knee Rehabilitation Guidelines Following Surgery Referrals: Lewis Glover MD [Primary Care Provider] - 06/06/16 9:50 am (Please follow up with Dr. Glover on MondayJune 06 at 9:50 am) Alyson Geronimo, RESHMAC [Physician Supervisor Education] - - Patient Data Vitals - Most Recent: Last Vital Signs Temp 98.6 F 06/01/16 11:29 Pulse 79 06/01/16 11:29 Resp 18 06/01/16 11:29 BP 116/87 06/01/16 11:29 Pulse Ox 93 L 06/01/16 11:58 Weight - Most Recent: 150 lb Med Orders - Current: Current Medications Discontinued Medications Amitriptyline HCl (Elavil) 50 mg PO DAILY [facility] Last Admin: 06/01/16 08:27 Dose: Not Given Bisacodyl (Dulcolax) 5 mg PO DAILY PRN PRN Reason: Constipation Bupivacaine HCl (Marcaine 0.25%) Confirm Administered Dose 30 ml .ROUTE .STK- MED ONE Stop: 05/30/16 06:16 Last Admin: 05/30/16 08:13 Dose: 30 ml Bupropion HCl (Wellbutrin Xl) 150 mg PO DAILY [facility] Last Admin: 06/01/16 08:27 Dose: 150 mg Cefazolin Sodium (Ancef) Confirm Administered Dose 2 gm .ROUTE .STK-MED ONE Stop: 05/30/16 06:17 Last Admin: 05/30/16 08:07 Dose: 2 gm Cefazolin Sodium (Ancef) Confirm Administered Dose 2 gm .ROUTE .STK-MED ONE Stop: 05/30/16 06:15 Morphine Sulfate 8 mg/Epinephrine HCl 0.3 mg/Cefuroxime Sodium 750 mg/Ketorolac Tromethamine 30 mg/Sodium Chloride 27.9 ml 0 mg .XX ONETIME ONE Stop: 05/30/16 07:46 Last Admin: 05/30/16 08:11 Dose: 788.3 mg Cyanocobalamin (Vitamin B12) 1,000 mcg PO DAILY [facility] Last Admin: 06/01/16 08:27 Dose: 1,000 mcg Cyclobenzaprine HCl (Flexeril) 10 mg PO TID PRN PRN Reason: Spasms Last Admin: 06/01/16 13:56 Dose: 10 mg Diltiazem HCl (Dilacor Xr) 240 mg PO DAILY [facility] Last Admin: 06/01/16 08:27 Dose: 240 mg Diphenhydramine HCl (Benadryl) 25 mg IVPUSH Q6H PRN PRN Reason: itching Diphtheria/Tetanus/Acell Pertussis (Boostrix) 0.5 ml IM .ONCE ONE Stop: 05/30/16 10:12 Docusate Sodium (Colace) 100 mg PO BID [facility] Last Admin: 06/01/16 08:26 Dose: 100 mg Duloxetine HCl (Cymbalta) 90 mg PO DAILY [facility] Last Admin: 06/01/16 08:27 Dose: 90 mg Famotidine (Pepcid) 20 mg PO Q12H [facility] Last Admin: 05/31/16 08:59 Dose: 20 mg Fentanyl (Sublimaze) Confirm Administered Dose 100 mcg .ROUTE .[employer]-MED ONE Stop: 05/30/16 06:18 Fentanyl (Sublimaze) 50 mcg IVPUSH Q5M PRN PRN Reason: pain Stop: 05/30/16 12:00 Last Admin: 05/30/16 09:00 Dose: 50 mcg Hydromorphone HCl (Dilaudid) 0.5 mg IVPUSH Q15M PRN PRN Reason: Pain (severe 7-10) Stop: 05/30/16 06:41 Hydromorphone HCl (Dilaudid) 2 mg PO Q4H PRN PRN Reason: Pain Last Admin: 05/31/16 16:54 Dose: 2 mg Hydromorphone HCl (Dilaudid) 4 mg PO Q4H PRN PRN Reason: Pain Last Admin: 06/01/16 11:09 Dose: 4 mg Lactated Ringer's (Ringers, Lactated) 1,000 mls @ 125 mls/hr IV ASDIRECTED [facility] Last Admin: 05/30/16 06:36 Dose: 125 mls/hr Sodium Chloride (Normal Saline) Confirm Administered Dose 10 mls @ as directed .ROUTE .STK-MED ONE Stop: 05/30/16 06:17 Cefazolin Sodium/Dextrose 2 gm (/ Premix) 50 mls @ 100 mls/hr IV Q8H [facility] Stop: 05/31/16 06:29 Last Admin: 05/31/16 05:04 Dose: 100 mls/hr Lactated Ringer's (Ringers, Lactated) Confirm Administered Dose 1,000 mls @ as directed .ROUTE .STK-MED ONE Stop: 05/30/16 08:31 Lactated Ringer's (Ringers, Lactated) Confirm Administered Dose 1,000 mls @ as directed .ROUTE .STK-MED ONE Stop: 05/30/16 08:31 Iodine (Iodine 2% Mild Tincture) Confirm Administered Dose 30 ml .ROUTE .STK- MED ONE Stop: 05/30/16 06:16 Last Admin: 05/30/16 08:04 Dose: 18 ml Ketorolac Tromethamine (Toradol) 15 mg IVPUSH Q8H PRN PRN Reason: Pain Stop: 05/31/16 01:43 Last Admin: 05/30/16 18:29 Dose: 15 mg Ketorolac Tromethamine (Toradol) 15 mg IVPUSH ONETIME ONE Stop: 05/31/16 05:50 Last Admin: 05/31/16 06:08 Dose: 15 mg Lidocaine/Sodium Bicarbonate (Buffered Lidocaine 1% In Ns 8.4%) 0.25 ml IV ONETIME PRN PRN Reason: Prior to IV Start Last Admin: 05/30/16 06:36 Dose: 0.25 ml Magnesium Hydroxide (Milk Of Magnesia) 30 ml PO BID PRN PRN Reason: Constipation Midazolam HCl (Versed 1 Mg/Ml) Confirm Administered Dose 2 mg .ROUTE .STK-MED ONE Stop: 05/30/16 06:18 Morphine Sulfate (Duramorph Pf) Confirm Administered Dose 10 mg .ROUTE .STK-MED ONE Stop: 05/30/16 06:19 Morphine Sulfate (Morphine) 2 mg IVPUSH Q2H PRN PRN Reason: Breakthrough Pain Last Admin: 05/31/16 14:24 Dose: 2 mg Morphine Sulfate (Morphine) 2 mg IVPUSH ONETIME ONE Stop: 05/30/16 13:46 Last Admin: 05/30/16 12:47 Dose: 2 mg Multivitamins (Thera) 1 each PO BID [facility] Last Admin: 06/01/16 08:27 Dose: 1 each Naloxone HCl (Narcan) 0.1 mg IVPUSH Q5M PRN PRN Reason: Oversedation Stop: 05/30/16 06:58 Non-Formulary Medication (Duloxetine) 60 mg PO DAILY [facility] Non-Formulary Medication (Diltiazem Hcl [Diltiazem Er]) 240 mg PO DAILY [facility] Non-Formulary Medication (Docusate Sodium [Stool Softener]) 150 mg PO BID [facility] Last Admin: 05/31/16 08:06 Dose: Not Given Non-Formulary Medication (Estrogens, Conjugated) 12.5 mcg VAG DAILY [facility] Ondansetron HCl (Zofran) 4 mg IVPUSH ONETIME PRN PRN Reason: Nausea/Vomiting Stop: 05/30/16 12:00 Ondansetron HCl (Zofran) 4 mg IVPUSH Q6H PRN PRN Reason: Nausea/Vomiting Last Admin: 05/31/16 07:02 Dose: 4 mg Oxycodone HCl (Oxycodone) 5 mg PO Q4H PRN PRN Reason: Pain Last Admin: 06/01/16 08:28 Dose: 5 mg Oxycodone/Acetaminophen (Percocet 325-5 Mg) 1 - 2 tab PO Q4H PRN PRN Reason: Pain Last Admin: 05/31/16 04:48 Dose: 2 tab Pantoprazole Sodium (Protonix) 40 mg PO DAILY [facility] Last Admin: 06/01/16 08:27 Dose: 40 mg Pneumococcal 13-Valent Conj Vacc (Prevnar 13) 0.5 ml IM .ONCE ONE Stop: 05/30/16 10:13 Propofol (Diprivan 20 Ml) Confirm Administered Dose 200 mg .ROUTE .STK-MED ONE Stop: 05/30/16 06:17 Propofol (Diprivan 20 Ml) Confirm Administered Dose 200 mg .ROUTE .STK-MED ONE Stop: 05/30/16 07:31 Rivaroxaban (Xarelto) 10 mg PO DAILY [facility] Last Admin: 06/01/16 08:27 Dose: 10 mg Senna (Senna) 8.6 mg PO BID PRN PRN Reason: Constipation Senna/Docusate Sodium (Senna Plus) 1 tab PO BID [facility] Last Admin: 06/01/16 08:27 Dose: 1 tab Simvastatin (Zocor) 10 mg PO BEDTIME [facility] Last Admin: 05/31/16 20:27 Dose: 10 mg Sodium Chloride (Saline Flush) 10 ml FLUSH ASDIRECTED PRN PRN Reason: Keep Vein Open Last Admin: 05/30/16 14:52 Dose: 10 ml Tranexamic Acid (Cyklokapron) Confirm Administered Dose 1,000 mg .ROUTE .STK- MED ONE Stop: 05/30/16 06:15 Last Admin: 05/30/16 08:15 Dose: 1,000 mg Vit A/Vit C/Vit E/Selen/Cu/Zn/Lutei (Icaps Mv) 1 tab PO DAILY [facility] Last Admin: 06/01/16 08:27 Dose: 1 tab *Q Meaningful Use (DIS) - VTE *Q VTE Criteria *Q: - Stroke *Q Stroke Criteria *Q: - AMI *Q AMI Criteria *Q:
== END 2016-06-01 15:45 | disposition home or self-care (01) | DRG 470 ==
LOC: JD.OB 06:14 → JD.MS 07:51 → JD.OB 07:54 → JD.MS 05-31 06:43
PROVIDERS: ADMIT Orthopaedic Surgery; ATTEND Orthopaedic Surgery
PROC: 0SRD0J9 Replacement of Left Knee Joint with Synthetic Substitute, Cemented, Open Approach (ICD-10-PCS; principal; 2016-05-30)
DX: M17.12 Unilateral primary osteoarthritis, left knee (principal); R09.02 Hypoxemia; I10 Essential (primary) hypertension; E78.5 Hyperlipidemia, unspecified; J45.909 Unspecified asthma, uncomplicated; K21.9 Gastro-esophageal reflux disease without esophagitis; F32.9 Major depressive disorder, single episode, unspecified; F41.9 Anxiety disorder, unspecified; Z88.8 Allergy status to other drugs, medicaments and biological substances; Z79.899 Other long term (current) drug therapy; E78.00 Pure hypercholesterolemia, unspecified; M79.1 Myalgia
CPT/HCPCS: 01402; 36415; 73560-26-LT; 73560-LT; 80048; 80053; 85025; 87641; 94762; 97110-GP; 97116-GP; 97140-GP; 97161-GP; 97165-GO; 97530-GO; 97535-GO; 99232; A9270-GY; C1713; C1776; J0171; J0690; J0697; J1885; J2250; J2270; J2405; J2704; J3010; J3490; J7050; J7120

== ENCOUNTER 2016-12-29 14:38 | Emergency (ER) | payer MEDICARE, BC ==
[2016-12-29 14:45] VITALS: BP 160/79
[2016-12-29] MEDS ORDERED: Sodium Chloride 0.9% 10 ML Syringe FLUSH PRN (14:49)
[2016-12-29] MEDS ORDERED: Sodium Chloride 0.9% 500 ML IV ONE (16:46)
[2016-12-29] MEDS: Lidocaine 1% 2 ML ONE ×2 (17:44→18:47)
[2016-12-29] MEDS ORDERED: Lidocaine 1% 50 ML MDV INJECT ONE (18:00)
--- NOTE | 2016-12-29 18:38 | EDM.PDOC ---
ED HPI GENERAL MEDICAL PROBLEM - General Chief Complaint: Cardiovascular Problem Stated Complaint: [facility] Time Seen by Provider: 12/29/16 14:42 Source of Information: Reports: Patient, RN Notes Reviewed - History of Present Illness INITIAL COMMENTS - FREE TEXT/NARRATIVE: 71-year-old female has been brought here to the ED after becoming weak, lightheaded and dizzy during physical therapy. She states she felt very "warm" . She is not reported to pass out. She had no chest pain or difficulty breathing. She does have chronic low back pain and also rehabbing from left total knee replacement last spring several months ago. She started feeling nauseated, weak, lightheaded and dizzy during physical therapy a short time ago. She was not hypotensive upon ambulance arrival. She was transported here without further incident. She still does have very mild nausea but it is better. SHe was given Zofran 4 mg ODT. Sound like she has had back surgery sometime within the last year and then had left knee replacement about 4-5 months ago. She is receiving physical therapy primarily for continued rehabilitation of her left knee. - Related Data Allergies Allergy/AdvReac Type Severity Reaction Status Date / Time niacin Allergy Rash Verified 12/29/16 14:44 atorvastatin calcium AdvReac Muscle Verified 12/29/16 14:44 [From Lipitor] Aches rosuvastatin calcium AdvReac Muscle Verified 12/29/16 14:44 [From Crestor] Aches Home Meds: Home Meds Amitriptyline [Elavil] 50 mg PO DAILY 10/06/14 [History] Lutein/Min/Vit C/Vit E Acetate [Ocuvite Lutein] 1 mg PO DAILY 10/06/14 [History] Pravastatin [Pravachol] 40 mg PO DAILY 10/06/14 [History] Sennosides/Docusate Sodium [Senna-Docusate Sodium Tablet] 150 mg PO BID [History] buPROPion [Wellbutrin XL] 450 mg PO DAILY 10/06/14 [History] Multivitamin [Multivitamins] 1 cap PO BID 05/27/16 [History] Pantoprazole Sodium [Protonix] 40 mg PO DAILY 05/27/16 [History] Cyclobenzaprine [Flexeril] 10 mg PO TID PRN #40 tablet 05/31/16 [Rx] ALPRAZolam [Alprazolam] 0.5 mg PO BID PRN 12/29/16 [History] Albuterol Sulfate [Proair Hfa] 2 puff INH Q4HR PRN 12/29/16 [History] DULoxetine [Cymbalta] 60 mg PO DAILY 12/29/16 [History] Diltiazem HCl [Cartia Xt] 240 mg PO DAILY 12/29/16 [History] Hydrocodone/Acetaminophen [Hydrocodon-Acetaminophen 5-325] 1 - 2 tab PO Q6H PRN 12/29/16 [History] Polyethylene Glycol [Polyox Wsr-301] 3 tbsp PO BID 12/29/16 [History] Past Medical History HEENT History: Reports: Impaired Vision Other HEENT History: wears corrective lenses Cardiovascular History: Reports: High Cholesterol, Hypertension Other Cardiovascular History: hypercholesterolemia Respiratory History: Reports: Asthma Other Respiratory History: rib pain on left side [employer] History: Reports: Musculoskeletal History: Reports: Back Pain, Chronic Neurological History: Reports: Other (See Below) Other Neuro History: myalgia Psychiatric History: Reports: Anxiety Other Psychiatric History: major depressive disorder - Past Surgical History HEENT Surgical History: Reports: Cataract Surgery, LASIK GI Surgical History: Reports: Appendectomy, Cholecystectomy Female Surgical History: Reports: Hysterectomy, Oophorectomy Musculoskeletal Surgical History: Reports: Knee Replacement, Other (See Below) Other Musculoskeletal Surgeries/Procedures:: laminectomy L4-5 Social & Family History - Tobacco Use Smoking Status *Q: Never Smoker Second Hand Smoke Exposure: No - Caffeine Use Caffeine Use: Reports: Coffee, Tea - Alcohol Use Days Per Week of Alcohol Use: 0 (rarely) - Recreational Drug Use Recreational Drug Use: No Drug Use in Last 12 Months: No ED ROS GENERAL - Review of Systems Review Of Systems: See Below Constitutional: Denies: Fever, Chills, Diaphoresis HEENT: Reports: No Symptoms Respiratory: Denies: Shortness of Breath, Pleuritic Chest Pain, Cough Cardiovascular: Reports: Lightheadedness, Palpitations. Denies: Chest Pain GI/Abdominal: Reports: Nausea. Denies: Abdominal Pain, Diarrhea, Vomiting Musculoskeletal: Reports: Back Pain (Chronic low back pain), Joint Pain (Left knee discomfort status post left knee replacement) Skin: Reports: Diaphoresis Neurological: Reports: Dizziness (Mild, gone), Weakness (Generalized). Denies: Trouble Speaking ED EXAM, GENERAL - Physical Exam Exam: See Below General Appearance: Alert, No Apparent Distress Eye Exam: Bilateral Eye: PERRL Throat/Mouth: Normal Inspection, Normal Oropharynx Head: No: Facial Swelling Neck: Supple, Full Range of Motion, Other Respiratory/Chest: No Respiratory Distress (No JVD), Lungs Clear, Normal Breath Sounds. No: Rales, Rhonchi, Wheezing Cardiovascular: Regular Rate, Rhythm GI/Abdominal: Soft, Non-Tender Back Exam: No: CVA Tenderness (L), Paraspinal Tenderness Extremities: Normal Inspection, Other (Mild swelling of left lower leg compared to right, mild tenderness posterior knee). No: Increased Warmth, Redness Neurological: Alert, Oriented, No Motor/Sensory Deficits Skin Exam: Warm, Dry, Normal Color Course - Vital Signs Last Recorded V/S: Last Vital Signs Temp 96.7 F 12/29/16 14:42 Pulse 87 12/29/16 14:42 Resp 17 12/29/16 14:42 BP 160/79 H 12/29/16 14:42 Pulse Ox 91 L 12/29/16 14:42 - Orders/Labs/Meds Orders: Active Orders 24 hr Category Date Time Status EKG 12 Lead [EKG Documentation Completion] [RC] STAT Care 12/29/16 14:49 Active EKG Documentation Completion [RC] ASDIRECTED Care 12/29/16 14:50 Active Peripheral IV Care [RC] . DIRECTED Care 12/29/16 14:50 Active Peripheral IV Insertion Adult [OM.PC] Stat Oth 12/29/16 14:50 Ordered EKG 12 Lead [EK] Stat Ther 12/29/16 14:49 Stop Req Labs: Laboratory Tests 12/29/16 12/29/16 12/29/16 Range/Units 15:18 15:18 15:18 WBC 11.28 H (3.98-10.04) K/mm3 RBC 4.16 (3.98-5.22) M/mm3 Hgb 11.9 (11.2-15.7) gm/L Hct 37.9 (34.1-44.9) % MCV 91.1 (79.4-94.8) fl MCH 28.6 (25.6-32.2) pg MCHC 31.4 L (32.2-35.5) g/dl RDW Std Deviation 44.6 (36.4-46.3) fL Plt Count 304 (182-369) K/mm3 MPV 9.9 (9.4-12.3) fl Neut % (Auto) 66.0 (34.0-71.1) % Lymph % (Auto) 20.9 (19.3-51.7) % [place] % (Auto) 9.9 (4.7-12.5) % Eos % (Auto) 2.6 (0.7-5.8) Baso % (Auto) 0.5 (0.1-1.2) % Neut # (Auto) 7.44 H (1.56-6.13) K/mm3 Lymph # (Auto) 2.36 (1.18-3.74) K/mm3 [place] # (Auto) 1.12 H (0.24-0.36) K/mm3 Eos # (Auto) 0.29 (0.04-0.36) K/mm3 Baso # (Auto) 0.06 (0.01-0.08) K/mm3 D-Dimer, Quantitative 0.67 H (0.19-0.59) mg/L Sodium 141 (136-145) mEq/L Potassium 4.1 (3.5-5.1) mEq/L Chloride 105 (98-107) mEq/L Carbon Dioxide 25 (21-32) mEq/L Anion Gap 15.1 H (5-15) BUN 22 H (7-18) mg/dL Creatinine 1.2 H (0.55-1.02) mg/dL Est Cr Clr Drug Dosing 37.67 mL/min Estimated GFR (MDRD) 44 (>60) mL/min BUN/Creatinine Ratio 18.3 H (14-18) Glucose 135 H (80-115) mg/dL Calcium 9.4 (8.5-10.1) mg/dL Total Bilirubin 0.2 (0.2-1.0) mg/dL AST 12 L (15-37) U/L ALT 20 (14-59) U/L Alkaline Phosphatase 87 (46-116) U/L Troponin I < 0.017 (0.00-0.056) ng/mL Total Protein 7.2 (6.4-8.2) g/dl Albumin 3.9 (3.4-5.0) g/dl Globulin 3.3 gm/dL Albumin/Globulin Ratio 1.2 (1-2) Meds: Medications Discontinued Medications Generic Name Dose Route Start Last Admin Trade Name Mk PRN Reason Stop Dose Admin Lidocaine HCl Confirm 12/29/16 16:45 12/29/16 18:47 Xylocaine-Mpf 1% Administered 12/29/16 16:46 0.2 ml Dose Administration 2 mls @ as directed .ROUTE .STK-MED ONE Sodium Chloride 500 mls @ 999 mls/hr 12/29/16 16:46 12/29/16 17:44 Normal Saline IV 12/29/16 17:16 Not Given .BOLUS ONE Lidocaine HCl 2 ml 12/29/16 18:00 12/29/16 18:48 Xylocaine 1% INJECT 12/29/16 18:01 Not Given ONETIME ONE Sodium Chloride 10 ml 12/29/16 14:49 Saline Flush FLUSH ASDIRECTED PRN Keep Vein Open - Re-Assessments/Exams Free Text/Narrative Re-Assessment/Exam: 12/30/16 09:06. Our staff was unable to obtain IV upon patient arrival. Her veins very tortuous, difficult to thread IV. We did hold off on IV insertion due to at least 2 or 3 failed attempts. Then while awaiting lab work her sats dipped down to about the mid 80s for a short period of time. She was placed on 2 L O2. With concerns of why her sats a dropped I did order a d-dimer. Unfortunately that came back very mildly elevated 0.67. Patient denied feeling short of breath through this whole time. She had taken a pain pill prior to going to physical therapy. She continued to have no chest pain, no pleuritic chest discomfort and never became tachypnic. I did discuss pros and cons of CT pulmonary angiogram. She did have a vein of the right wrist that looked quite reasonable for access so I did go ahead and order CT pulmonary angiogram. However further attempts for IV access were not successful. He cut she did have mild left leg swelling status post left knee replacement I discussed with patient the option of doing ultrasound of her left lower extremity. We did do that and the ultrasound did come back negative. She was comfortable than with going home without the CT pulmonary angiogram. She will return if she does become more short of breath or developing other signs of chest discomfort or difficulty breathing. Discharge instructions as documented. Departure - Departure Time of Disposition: 18:38 Disposition: Home, Self-Care 01 Condition: Fair Clinical Impression: Dizziness, Near syncope Instructions: Near-Syncope, [id number] Referrals: Lewis Glover MD [Primary Care Provider] - Forms: ED Department Discharge Additional Instructions: Drink plenty of water to maintain hydration, continue current medications as prescribed, follow-up clinic as needed, return to ED if symptoms worsening in any way. - My Orders Last 24 Hours: My Active Orders 12/29/16 14:49 EKG 12 Lead [EKG Documentation Completion] [RC] STAT EKG 12 Lead [EK] Stat 12/29/16 14:50 EKG Documentation Completion [RC] ASDIRECTED Peripheral IV Care [RC] . DIRECTED Peripheral IV Insertion Adult [OM.PC] Stat - Assessment/Plan Last 24 Hours: My Active Orders 12/29/16 14:49 EKG 12 Lead [EKG Documentation Completion] [RC] STAT EKG 12 Lead [EK] Stat 12/29/16 14:50 EKG Documentation Completion [RC] ASDIRECTED Peripheral IV Care [RC] . DIRECTED Peripheral IV Insertion Adult [OM.PC] Stat
--- NOTE | 2016-12-29 18:58 | US ---
Left lower extremity deep venous ultrasound: Duplex and color flow imaging was obtained of the left common femoral, proximal greater saphenous, superficial femoral, popliteal, posterior tibial and peroneal veins. Right common femoral vein is also evaluated. Comparison: Previous left lower extremity deep venous ultrasound of 06/24/16. Findings: Normal phasic flow, augmentation and compression is seen. Impression: 1. No evidence of deep venous thrombosis is seen within the left lower extremity or within the right common femoral vein. No significant change is seen from previous study. Diagnostic code #1
--- NOTE | 2016-12-30 08:06 | CR ---
Chest: Portable view of the chest was obtained. Comparison: Previous chest x-ray of 04/11/12 is available. Chronic elevated right hemidiaphragm is seen. Heart size appears within normal limits for portable technique. Tortuous thoracic aorta is seen. Lungs are clear. Bony structures are grossly intact. Surgical clips are seen from prior cholecystectomy. Impression: 1. Nothing acute is appreciated on portable chest x-ray. Diagnostic code #2
== END 2016-12-29 18:49 | disposition home or self-care (01) ==
LOC: JD.ED 14:38
DX: R55 Syncope and collapse (principal); I10 Essential (primary) hypertension; J45.909 Unspecified asthma, uncomplicated; R22.42 Localized swelling, mass and lump, left lower limb; Z79.899 Other long term (current) drug therapy; Z88.8 Allergy status to other drugs, medicaments and biological substances; Z96.652 Presence of left artificial knee joint
CPT/HCPCS: 36415; 71010; 71010-26; 80053; 84484; 85025; 85379; 93005; 93971-26-LT; 93971-LT; 99285; 99285-25

== ENCOUNTER 2017-10-31 15:46 | Emergency (ER) | payer MEDICARE, BC ==
[2017-10-31 15:59] VITALS: BP 176/78
[2017-10-31] MEDS ORDERED: HYDROmorphone 0.5 MG/0.5 ML SYRINGE IM ONE (16:38)
[2017-10-31] MEDS ORDERED: Ketorolac 30 MG/ML SDV IVPUSH ONE (16:38)
--- NOTE | 2017-10-31 17:46 | EDM.PDOC ---
ED HPI GENERAL MEDICAL PROBLEM - General Chief Complaint: Lower Extremity Injury/Pain Stated Complaint: Neuropathy POST SURGICAL Time Seen by Provider: 10/31/17 16:16 Source of Information: Reports: Patient History Limitations: Reports: No Limitations - History of Present Illness INITIAL COMMENTS - FREE TEXT/NARRATIVE: Patient is a 72-year-old female who presents ED complaining of pain to her low back that radiates down the posterior/lateral/anterior aspect of the upper thigh. Patient recently had fusion of L3-L5 on October 17 at [facility]. She did see the neurosurgeon yesterday for reevaluation and have the jacob removed from the incision site. She had this pain yesterday and was advised the discomfort was nerve related. He has stated the pain would improve with time. They changed her pain medications from hydrocodone to Percocet. She last took Percocet at 11:00 this morning. Pain is more severe character remains the same. This developed after taking a nap. Patient awoke this afternoon at 3:00 with the worsening discomfort. She initially thought she may have a blood clot due to the worsening pain. Patient has no pain along the posterior aspect of her left lower leg. No increased swelling to her lower leg. She's been getting up and walking with a walker with no significant issues. He has no history of blood clots. She denies any shortness of breath or chest pain. She's not been taking anti-inflammatories. There is no incontinence to urine or stool. No numbness or tingling. No fever. No dysuria. No other complaints at this time. Patient is rubbing the left upper leg posterior/lateral/anterior during examination. Left Leg Pain Score (Numeric/FACES): 7 - Related Data Allergies Allergy/AdvReac Type Severity Reaction Status Date / Time niacin Allergy Rash Verified 12/29/16 14:44 atorvastatin calcium AdvReac Muscle Verified 12/29/16 14:44 [From Lipitor] Aches rosuvastatin calcium AdvReac Muscle Verified 12/29/16 14:44 [From Crestor] Aches Home Meds: Home Meds ALPRAZolam [Alprazolam] 0.5 mg PO BID PRN 10/31/17 [History] Acetaminophen/HYDROcodone [[place] 325-5 MG] 1 tab PO Q4HR PRN 10/31/17 [History] Acetaminophen/oxyCODONE [Percocet 325-5 MG] 1 tab PO Q4HR PRN 10/31/17 [History] Amitriptyline [Elavil] 50 mg PO BEDTIME 10/31/17 [History] DULoxetine HCl [Cymbalta] 1 tab PO DAILY 10/31/17 [History] DULoxetine [Cymbalta] 30 mg PO DAILY 10/31/17 [History] Diltiazem HCl [Cartia Xt] 240 mg PO DAILY 10/31/17 [History] Docusate Sodium [Colace] 100 mg PO BID 10/31/17 [History] Levothyroxine [Synthroid] 50 mcg PO ACBREAKFAST 10/31/17 [History] Pantoprazole Sodium 40 mg PO DAILY 10/31/17 [History] Polyethylene Glycol [Polyox Wsr-301] 17 gm PO BID 10/31/17 [History] Pravastatin [Pravachol] 1 tab PO DAILY 10/31/17 [History] buPROPion [buPROPion XL] 150 mg PO DAILY 10/31/17 [History] buPROPion [buPROPion XL] 300 mg PO DAILY 10/31/17 [History] Past Medical History HEENT History: Reports: Impaired Vision Other HEENT History: wears corrective lenses Cardiovascular History: Reports: High Cholesterol, Hypertension Other Cardiovascular History: hypercholesterolemia Respiratory History: Reports: Asthma Other Respiratory History: rib pain on left side [employer]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: Musculoskeletal History: Reports: Back Pain, Chronic Neurological History: Reports: Other (See Below) Other Neuro History: myalgia Psychiatric History: Reports: Anxiety Other Psychiatric History: major depressive disorder - Past Surgical History HEENT Surgical History: Reports: Cataract Surgery, LASIK GI Surgical History: Reports: Appendectomy, Cholecystectomy Female Surgical History: Reports: Hysterectomy, Oophorectomy Musculoskeletal Surgical History: Reports: Knee Replacement, Other (See Below) Other Musculoskeletal Surgeries/Procedures:: laminectomy L4-5, spinal fusion of L3-L5 Social & Family History - Tobacco Use Smoking Status *Q: Never Smoker Second Hand Smoke Exposure: No - Caffeine Use Caffeine Use: Reports: Coffee - Recreational Drug Use Recreational Drug Use: No Review of Systems - Review of Systems Review Of Systems: ROS reveals no pertinent complaints other than HPI. ED EXAM, GENERAL - Physical Exam Exam: See Below Exam Limited By: No Limitations General Appearance: Alert, WD/WN, Moderate Distress Ears: Hearing Grossly Normal Nose: Normal Inspection Throat/Mouth: Normal Voice, No Airway Compromise Neck: Normal Inspection, Supple Respiratory/Chest: No Respiratory Distress, Lungs Clear, Normal Breath Sounds, No Accessory Muscle Use Cardiovascular: Normal Peripheral Pulses, Regular Rate, Rhythm Peripheral Pulses: 2+: Radial (L), Posterior Tibial (L), Posterior Tibial (R) GI/Abdominal: Normal Bowel Sounds, Soft, Non-Tender, No Organomegaly, No Distention Back Exam: Decreased Range of Motion, Vertebral Tenderness (Surgical incision to the lumbar spine intact with no concerns for infection.) Extremities: Normal Inspection, Normal Range of Motion, Non-Tender (With palpation), No Pedal Edema, Normal Capillary Refill, Other (No pain noted to the posterior aspect of the left lower leg. No palpable cord. No increased swelling noted.) Neurological: Alert, Oriented, CN II-XII Intact, Normal Cognition, No Motor/ Sensory Deficits Psychiatric: Normal Affect, Normal Mood Skin Exam: Warm, Dry, Intact, Normal Color, No Rash Course - Vital Signs Last Recorded V/S: Last Vital Signs Temp 97.8 F 10/31/17 15:56 Pulse 102 H 10/31/17 15:56 Resp 20 10/31/17 15:56 BP 176/78 H 10/31/17 15:56 Pulse Ox 94 L 10/31/17 15:56 - Orders/Labs/Meds Meds: Medications Discontinued Medications Generic Name Dose Route Start Last Admin Trade Name Freq PRN Reason Stop Dose Admin Hydromorphone HCl 0.5 mg 10/31/17 16:38 10/31/17 16:49 Dilaudid IM 10/31/17 16:39 0.5 mg ONETIME ONE Administration Ketorolac Tromethamine 30 mg 10/31/17 16:38 10/31/17 16:48 Toradol IVPUSH 10/31/17 16:39 30 mg ONETIME ONE Administration - Re-Assessments/Exams Free Text/Narrative Re-Assessment/Exam: Ordered Dilaudid 0.5 mg IM and Toradol 30 mg IM. Ponce was placed between her legs while laying on her side. 1729 patient is not having significant relief with the pain medications. Ice will be applied to the back. 1744 per nursing staff patient got up to walk to the bathroom and states her pain is improving. She is ready be discharged home. Discharge instructions as documented. Departure - Departure Time of Disposition: 17:48 Disposition: Home, Self-Care 01 Condition: Good Clinical Impression: Status post lumbar spinal fusion Neuropathic pain, leg Qualifiers: Laterality: left Qualified Code(s): G57.92 - Unspecified mononeuropathy of left lower limb - Discharge Information Instructions: Neuropathic Pain, Pain Medicine Instructions, [id number] Referrals: Lewis Glover MD [Primary Care Provider] - Additional Instructions: Continue taking all your home medications as prescribed. Apply ice to the affected area as needed throughout the course of the day for increasing pain. If pain continues to be an issue please see the neurosurgeon for follow-up. Please return back to the ED if you develop any new or worsening symptoms.
== END 2017-10-31 18:00 | disposition home or self-care (01) ==
LOC: JD.ED 15:46
DX: G57.92 Unspecified mononeuropathy of left lower limb (principal); I10 Essential (primary) hypertension; Z98.1 Arthrodesis status; Z88.8 Allergy status to other drugs, medicaments and biological substances; Z79.899 Other long term (current) drug therapy
CPT/HCPCS: 96372; 99284; J1170; J1885

== ENCOUNTER 2017-11-07 13:55 | Emergency (ER) | payer MEDICARE, BC ==
[2017-11-07 14:18] VITALS: BP 163/94
[2017-11-07] MEDS ORDERED: Sodium Chloride 0.9% 10 ML Syringe FLUSH PRN (14:28)
[2017-11-07] MEDS ORDERED: HYDROmorphone 0.5 MG/0.5 ML SYRINGE IVPUSH ONE (14:29)
[2017-11-07] MEDS ORDERED: Sodium Chloride 0.9% 1,000 ML IV SCH (14:30)
[2017-11-07] MEDS ORDERED: Ondansetron 4 MG/2 ML SDV IVPUSH ONE (15:02)
[2017-11-07] MEDS ORDERED: Iopamidol 612 MG/ML 100 ML Bottle IVPUSH ONE (15:32)
[2017-11-07] MEDS ORDERED: Sodium Chloride 0.9% 10 ML Syringe FLUSH ONE (15:32)
[2017-11-07] MEDS ORDERED: HYDROmorphone 1 MG/ML Syringe IVPUSH ONE (16:32)
--- NOTE | 2017-11-07 16:49 | EDM.PDOC ---
ED HPI GENERAL MEDICAL PROBLEM - General Chief Complaint: Back Pain or Injury Stated Complaint: POST BACK SURGERY COMPLICATIONS Time Seen by Provider: 11/07/17 14:03 Source of Information: Reports: Patient, Provider History Limitations: Reports: No Limitations - History of Present Illness INITIAL COMMENTS - FREE TEXT/NARRATIVE: The patient presents with low back pain that radiates down her left leg. She had her third surgery to her low back on October 17. It was a lumbar laminectomy by Dr Iraheta at [facility]. She had this pain before surgery and now after. She did not injure her back. She has no numbness or weakness. She has no fever, chills, cough, chest pain, abdominal pain, nausea or vomiting. She tried calling Dr Iraheta and he was not in until tomorrow. She called Dr Glover and he was concerned she may have an abscess or something like that. He wanted a CT done. Onset: Gradual Duration: Week(s): Location: Reports: Back (lumbar spine), Lower Extremity, Left Quality: Reports: Sharp Severity: Severe Improves with: Reports: None Worsens with: Reports: None Associated Symptoms: Reports: No Other Symptoms Bilateral Back Pain Score (Numeric/FACES): 8 - Related Data Allergies Allergy/AdvReac Type Severity Reaction Status Date / Time niacin Allergy Rash Verified 11/07/17 14:18 atorvastatin calcium AdvReac Muscle Verified 11/07/17 14:18 [From Lipitor] Aches rosuvastatin calcium AdvReac Muscle Verified 11/07/17 14:18 [From Crestor] Aches Home Meds: Home Meds ALPRAZolam [Alprazolam] 0.5 mg PO BID PRN 10/31/17 [History] Acetaminophen/HYDROcodone [[place] 325-5 MG] 1 tab PO Q4HR PRN 10/31/17 [History] Acetaminophen/oxyCODONE [Percocet 325-5 MG] 1 tab PO Q4HR PRN 10/31/17 [History] Amitriptyline [Elavil] 50 mg PO BEDTIME 10/31/17 [History] DULoxetine [Cymbalta] 30 mg PO DAILY 10/31/17 [History] Diltiazem HCl [Cartia Xt] 240 mg PO DAILY 10/31/17 [History] Levothyroxine [Synthroid] 50 mcg PO ACBREAKFAST 10/31/17 [History] Pantoprazole Sodium 40 mg PO DAILY 10/31/17 [History] Polyethylene Glycol [Polyox Wsr-301] 17 gm PO BID 10/31/17 [History] Pravastatin [Pravachol] 1 tab PO DAILY 10/31/17 [History] buPROPion [buPROPion XL] 150 mg PO DAILY 10/31/17 [History] buPROPion [buPROPion XL] 300 mg PO DAILY 10/31/17 [History] Hydrocodone/Acetaminophen [Hydrocodon-Acetaminophen 5-325] 1 - 2 each PO Q6HR PRN #20 tablet 11/07/17 [Rx] Past Medical History HEENT History: Reports: Impaired Vision Other HEENT History: wears corrective lenses Cardiovascular History: Reports: High Cholesterol, Hypertension Other Cardiovascular History: hypercholesterolemia Respiratory History: Reports: Asthma 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: Musculoskeletal History: Reports: Back Pain, Chronic Neurological History: Reports: Other (See Below) Other Neuro History: myalgia Psychiatric History: Reports: Anxiety Other Psychiatric History: major depressive disorder - Infectious Disease History Infectious Disease History: Reports: Chicken Pox, Measles, Mumps, Rubella - Past Surgical History HEENT Surgical History: Reports: Cataract Surgery, LASIK GI Surgical History: Reports: Appendectomy, Cholecystectomy Female Surgical History: Reports: Hysterectomy, Oophorectomy Musculoskeletal Surgical History: Reports: Knee Replacement, Other (See Below) Other Musculoskeletal Surgeries/Procedures:: laminectomy L4-5, spinal fusion of L3-L5 Social & Family History - Family History Family Medical History: Noncontributory - Tobacco Use Smoking Status *Q: Never Smoker Second Hand Smoke Exposure: No - Caffeine Use Caffeine Use: Reports: Coffee - Recreational Drug Use Recreational Drug Use: No ED ROS GENERAL - Review of Systems Review Of Systems: See Below Constitutional: Reports: No Symptoms HEENT: Reports: No Symptoms Respiratory: Reports: No Symptoms Cardiovascular: Reports: No Symptoms Endocrine: Reports: No Symptoms GI/Abdominal: Reports: No Symptoms : Reports: No Symptoms Musculoskeletal: Reports: Back Pain, Other (left leg pain) Skin: Reports: No Symptoms ED EXAM,LOWER BACK PAIN/INJURY - Physical Exam Exam: See Below Exam Limited By: No Limitations General Appearance: Alert, No Apparent Distress Ears: Normal External Exam Nose: Normal Inspection Head: Atraumatic, Normocephalic Neck: Normal Inspection Respiratory/Chest: No Respiratory Distress, Lungs Clear, Normal Breath Sounds Cardiovascular: Regular Rate, Rhythm, No Edema, No Murmur GI/Abdominal: Soft, Non-Tender, No Organomegaly, No Mass Back Exam: Other (lower lumbar midline incision scar with no erythema, edema, pain or drainage. Pain upon palaption to the low back.) Extremities: Other (Pain upon palpatio to the left leg) Neurological: Alert, No Motor/Sensory Deficits, Oriented x 3 Course - Vital Signs Last Recorded V/S: Last Vital Signs Temp 98.6 F 11/07/17 14:13 Pulse 99 11/07/17 14:13 Resp 18 11/07/17 14:13 BP 163/94 H 11/07/17 14:13 Pulse Ox 95 11/07/17 14:13 - Orders/Labs/Meds Orders: Active Orders 24 hr Category Date Time Status Cardiac Monitoring [RC] . DIRECTED Care 11/07/17 14:28 Active Peripheral IV Care [RC] . DIRECTED Care 11/07/17 14:29 Active Lumbar Spine w Cont [CT] Stat Exams 11/07/17 14:29 Taken UA W/MICROSCOPIC [URIN] Stat Lab 11/07/17 14:28 Ordered Sodium Chloride 0.9% [Normal Saline] 1,000 ml Med 11/07/17 14:30 Active IV ASDIRECTED Sodium Chloride 0.9% [Saline Flush] Med 11/07/17 14:28 Active 10 ml FLUSH ASDIRECTED PRN Peripheral IV Insertion Adult [OM.PC] Stat Oth 11/07/17 14:28 Ordered Medication Orders Sodium Chloride (Normal Saline) 1,000 mls @ 125 mls/hr IV ASDIRECTED GLORIA Last Admin: 11/07/17 14:54 Dose: 125 mls/hr Sodium Chloride (Saline Flush) 10 ml FLUSH ASDIRECTED PRN PRN Reason: Keep Vein Open Last Admin: 11/07/17 14:55 Dose: 10 ml Labs: Laboratory Tests 11/07/17 11/07/17 11/07/17 Range/Units 14:40 14:40 14:40 WBC 9.64 (3.98-10.04) K/mm3 RBC 4.27 (3.98-5.22) M/mm3 Hgb 12.6 (11.2-15.7) gm/L Hct 40.0 (34.1-44.9) % MCV 93.7 (79.4-94.8) fl MCH 29.5 (25.6-32.2) pg MCHC 31.5 L (32.2-35.5) g/dl RDW Std Deviation 45.1 (36.4-46.3) fL Plt Count 431 H (182-369) K/mm3 MPV 9.4 (9.4-12.3) fl Neut % (Auto) 62.9 (34.0-71.1) % Lymph % (Auto) 26.6 (19.3-51.7) % [place] % (Auto) 7.9 (4.7-12.5) % Eos % (Auto) 2.0 (0.7-5.8) Baso % (Auto) 0.4 (0.1-1.2) % Neut # (Auto) 6.07 (1.56-6.13) K/mm3 Lymph # (Auto) 2.56 (1.18-3.74) K/mm3 [place] # (Auto) 0.76 H (0.24-0.36) K/mm3 Eos # (Auto) 0.19 (0.04-0.36) K/mm3 Baso # (Auto) 0.04 (0.01-0.08) K/mm3 ESR 62 H (0-20) mm/hr Sodium 139 (136-145) mEq/L Potassium 3.9 (3.5-5.1) mEq/L Chloride 103 (98-107) mEq/L Carbon Dioxide 24 (21-32) mEq/L Anion Gap 15.9 H (5-15) BUN 14 (7-18) mg/dL Creatinine 1.1 H (0.55-1.02) mg/dL Est Cr Clr Drug Dosing 40.51 mL/min Estimated GFR (MDRD) 49 (>60) mL/min BUN/Creatinine Ratio 12.7 L (14-18) Glucose 129 H (83-115) mg/dL Calcium 9.7 (8.5-10.1) mg/dL Total Bilirubin 0.3 (0.2-1.0) mg/dL AST 22 (15-37) U/L ALT 33 (14-59) U/L Alkaline Phosphatase 124 H (46-116) U/L C-Reactive Protein 0.8 (<1.0) mg/dL Total Protein 8.5 H (6.4-8.2) g/dl Albumin 3.9 (3.4-5.0) g/dl Globulin 4.6 gm/dL Albumin/Globulin Ratio 0.9 L (1-2) Meds: Medications Generic Name Dose Route Start Last Admin Trade Name Freq PRN Reason Stop Dose Admin Sodium Chloride 1,000 mls @ 125 mls/hr 11/07/17 14:30 11/07/17 14:54 Normal Saline IV 125 mls/hr ASDIRECTED GLORIA Administration Sodium Chloride 10 ml 11/07/17 14:28 11/07/17 14:55 Saline Flush FLUSH 10 ml ASDIRECTED PRN Administration Keep Vein Open Discontinued Medications Generic Name Dose Route Start Last Admin Trade Name Mk PRN Reason Stop Dose Admin Hydromorphone HCl 0.5 mg 11/07/17 14:29 11/07/17 14:55 Dilaudid IVPUSH 11/07/17 14:30 0.5 mg ONETIME ONE Administration Hydromorphone HCl 1 mg 11/07/17 16:32 11/07/17 16:45 Dilaudid IVPUSH 11/07/17 16:33 1 mg ONETIME ONE Administration Iopamidol 100 ml 11/07/17 15:32 Isovue-300 (61%) IVPUSH 11/07/17 15:33 ONETIME ONE Ondansetron HCl 4 mg 11/07/17 15:02 11/07/17 15:07 Zofran IVPUSH 11/07/17 15:03 4 mg ONETIME ONE Administration Sodium Chloride 10 ml 11/07/17 15:32 Saline Flush FLUSH 11/07/17 15:33 ONETIME ONE - Re-Assessments/Exams Free Text/Narrative Re-Assessment/Exam: 11/07/17 16:50 I ordered an IV saline lock, dilaudid 0.5mg IV, labs, and a CT of her abdomen and pelvis. 11/07/17 17:07 Her CBC looks good. Her creatinine was slightly elevated at 1.1. Her glucose was 129. Her Alk phos was 124. 11/07/17 17:07 Her ESR was 62. Her CT shows status post posterior fusion of L3, L4, and L5. There is increase in anterolisthesis of L4 and L5 with associated bilateral neural foraminal stenosis. She had more pain so I ordered dilaudid 1mg IV. I will discharge her home. She says hydrocodone worked better for her so I will give her a prescription for those. I also want her to call Dr Iraheta tomorrow and let him know what is going on. I sent the CT over to him. 11/07/17 17:10 Departure - Departure Time of Disposition: 17:10 Disposition: Home, Self-Care 01 Condition: Good Clinical Impression: Status post lumbar spinal fusion Low back pain with sciatica Qualifiers: Chronicity: chronic Back pain laterality: left Sciatica laterality: sciatica of left side Qualified Code(s): M54.42 - Lumbago with sciatica, left side; G89.29 - Other chronic pain - Discharge Information *PRESCRIPTION DRUG MONITORING PROGRAM REVIEWED*: No *COPY OF PRESCRIPTION DRUG MONITORING REPORT IN PATIENT MELINA: No Prescriptions: Hydrocodone/Acetaminophen [Hydrocodon-Acetaminophen 5-325] 1 - 2 each PO Q6HR PRN #20 tablet PRN Reason: Pain Referrals: Lewis Glover MD [Primary Care Provider] - Forms: ED Department Discharge Additional Instructions: Try the hydrocodone for pain. Call Dr Iraheta's office and let them know what is going on and that we did a CT. Please return if you are worse. - My Orders Last 24 Hours: My Active Orders 11/07/17 14:28 Cardiac Monitoring [RC] . DIRECTED UA W/MICROSCOPIC [URIN] Stat Sodium Chloride 0.9% [Saline Flush] 10 ml FLUSH ASDIRECTED PRN Peripheral IV Insertion Adult [OM.PC] Stat 11/07/17 14:29 Peripheral IV Care [RC] . DIRECTED Lumbar Spine w Cont [CT] Stat 11/07/17 14:30 Sodium Chloride 0.9% [Normal Saline] 1,000 ml IV ASDIRECTED - Assessment/Plan Last 24 Hours: My Active Orders 11/07/17 14:28 Cardiac Monitoring [RC] . DIRECTED UA W/MICROSCOPIC [URIN] Stat Sodium Chloride 0.9% [Saline Flush] 10 ml FLUSH ASDIRECTED PRN Peripheral IV Insertion Adult [OM.PC] Stat 11/07/17 14:29 Peripheral IV Care [RC] . DIRECTED Lumbar Spine w Cont [CT] Stat 11/07/17 14:30 Sodium Chloride 0.9% [Normal Saline] 1,000 ml IV ASDIRECTED
--- NOTE | 2017-11-08 12:13 | CT ---
CT lumbar spine Technique: Multiple axial sections were obtained from above the T12 vertebral body inferiorly through the L5-S1 disc. Reconstructed sagittal and coronal images were reviewed. Comparison: Prior MRI lumbar spine exam of 06/23/17. Findings: T12-L1 through L2-L3: Posterior discs are preserved. No central canal stenosis or neural foraminal stenosis is seen. L3-L4: Posterior disc is preserved. No central canal stenosis or neural foraminal stenosis is seen. L4-L5: Posterior laminectomy is seen. Transpedicle screws are seen above and below this level. Intervertebral disc fixation device is seen. No central canal stenosis or neural foraminal stenosis is seen. L5-S1: Spondylolisthesis is seen measuring 6.7 mm. This has slightly progressed from previous exam. Posterior laminectomy is seen. No central canal stenosis is seen. Soft tissue material is seen within the left neural foramen most likely representing postoperative change. No other findings of neural foraminal stenosis are seen. No findings of abscess are seen. Impression: 1. Prior surgery. No findings of abscess. 2. Increased spondylolisthesis at L5-S1 by several millimeters. 3. Nothing acute is otherwise seen on CT study of the lumbar spine. Diagnostic code #3 Most probably agree with preliminary report issued by [facility] (report finalized on 11/07/17, 5:15 PM Central Time)
== END 2017-11-07 17:40 | disposition home or self-care (01) ==
LOC: JD.ED 13:55
DX: M54.42 Lumbago with sciatica, left side (principal); G89.29 Other chronic pain; I10 Essential (primary) hypertension; Z98.1 Arthrodesis status; Z88.8 Allergy status to other drugs, medicaments and biological substances; Z79.899 Other long term (current) drug therapy
CPT/HCPCS: 36415; 72132; 80053; 85025; 85652; 86140; 96361; 96374; 96375; 96376; 99284; J1170; J2405; J7040; J7050

== ENCOUNTER 2018-05-26 17:15 | Emergency (ER) | payer MEDICARE, BC ==
[2018-05-26 17:54] VITALS: BP 153/94
[2018-05-26] MEDS ORDERED: Orphenadrine 100 MG Tab.ER PO STA (18:34)
[2018-05-26] MEDS ORDERED: Ibuprofen 600 MG Tab PO ONE (18:35)
--- NOTE | 2018-05-26 18:37 | EDM.PDOC ---
ED HPI GENERAL MEDICAL PROBLEM - General Chief Complaint: Headache Stated Complaint: HEADACHE Time Seen by Provider: 05/26/18 17:58 Source of Information: Reports: Patient, RN Notes Reviewed History Limitations: Reports: No Limitations - History of Present Illness INITIAL COMMENTS - FREE TEXT/NARRATIVE: The patient states that she had a left upper toothache and a cough productive of green sputum earlier this week. Her toothache resolved, but she then developed rhinorrhea, along with the cough, and a headache that was initially felt across her whole head, but is now felt in her right frontal and temporal area, along with her right jaw. She describes the pain as a pressure sensation. She may have photophobia and phonophobia. No visual changes, and no neurologic symptoms, such as tingling, numbness, or weakness. She states that she has had migraines in the past, and this is not like that. She also reports that her right jaw pain is chronic, due to TMJ, coming and going since the . No recent fever. She states that she was seen at the walk-in clinic today. She states that no tests were done, and she was told she has a viral illness, with the recommendation to take [id number] cold medications. The patient presents to the ED, however, because she states that she has been taking Tylenol and over -the-counter Coricidin, without relief. The patient reports that she developed a recurrent rash, and was seen by a spring former machine who performed a biopsy, indicating that it was a drug-related rash. She recommended that the patient discontinue all of her medications, which her PCP has been doing. The patient is now on diphenhydramine, for her rash, and amitriptyline at bedtime, only. The patient's PCP is Dr. Glover. Headache Pain Score (Numeric/FACES): 7 - Related Data Allergies Allergy/AdvReac Type Severity Reaction Status Date / Time niacin Allergy Rash Verified 05/26/18 17:44 atorvastatin calcium AdvReac Muscle Verified 05/26/18 17:44 [From Lipitor] Aches rosuvastatin calcium AdvReac Muscle Verified 05/26/18 17:44 [From Crestor] Aches Home Meds: Home Meds Amitriptyline [Elavil] 25 mg PO BEDTIME 10/31/17 [History] Ondansetron [Zofran ODT] 1 tab PO Q8H PRN #10 tab.dis 05/26/18 [Rx] Rizatriptan Benzoate [Rizatriptan] 1 tab PO Q2H PRN #3 tab.rapdis 05/26/18 [Rx] Past Medical History HEENT History: Reports: Hard of Hearing (wears bilateral hearing aids), Macular Degeneration, Other (See Below) (TMJ) Other HEENT History: wears corrective lenses Cardiovascular History: Reports: High Cholesterol (untreated), Hypertension ( untreated) Respiratory History: Reports: Asthma (Suspected. Untreated.) Gastrointestinal History: Reports: GERD (untreated) Genitourinary History: Reports: Urinary Incontinence (stress incontinence) [employer]EE BL[employer]ER History: Reports: Endometriosis, Musculoskeletal History: Reports: Back Pain, Chronic, Fracture (bilateral feet) , Osteoarthritis Psychiatric History: Reports: Anxiety (untreated), Depression (untreated), Panic Attack Endocrine/Metabolic History: Reports: Hypothyroidism (untreated) - Infectious Disease History Infectious Disease History: Reports: Chicken Pox, Measles, Mumps, Rubella - Past Surgical History HEENT Surgical History: Reports: Cataract Surgery (bilateral), LASIK (bilateral) , Oral Surgery (wisdom teeth extraction) GI Surgical History: Reports: Appendectomy, Cholecystectomy Female Surgical History: Reports: Hysterectomy (partial), Oophorectomy ( unilateral) Neurological Surgical History: Reports: Lumbar Spine (L4-5 laminectomy x 2, L3- 5 fusion) Musculoskeletal Surgical History: Reports: Knee Replacement (left), Other (See Below) (Bilateral feet neuroma excision, bilateral hammertoe surgery) Social & Family History - Family History Family Medical History: Noncontributory - Tobacco Use Smoking Status *Q: Never Smoker Second Hand Smoke Exposure: No - Caffeine Use Caffeine Use: Reports: Tea - Alcohol Use Alcohol Use History: Yes Alcohol Use Frequency: Rarely - Recreational Drug Use Recreational Drug Use: No - Living Situation & Occupation Living situation: Reports: , with Spouse Occupation: Retired ED ROS GENERAL - Review of Systems Review Of Systems: ROS reveals no pertinent complaints other than HPI. - Physical Exam Exam: See Below Exam Limited By: No Limitations General Appearance: Alert, WD/WN, No Apparent Distress Eye Exam: Bilateral Eye: EOMI (Patient reports pain to right eye/right zoroastrianism with rightward gaze), Normal Inspection, Other (Puffiness about the right eye that the patient says is part of the rash that she has been dealing with) Ears: Normal External Exam, Normal Canal, Hearing Loss, Other (Right TM bulging with clear fluid. No erythema.) Nose: Normal Inspection, Normal Mucosa, No Blood Throat/Mouth: Normal Inspection, Normal Lips, Normal Teeth, Normal Gums, Normal Oropharynx, Normal Voice, No Airway Compromise Head Exam: Atraumatic, Normocephalic, Facial Tenderness (to the right zoroastrianism, but no visible or palpable abnormality), Sinus Tenderness (over right frontal and maxillary sinuses). No: Facial Swelling Neck: Normal Inspection, Supple, Non-Tender, Full Range of Motion. No: Lymphadenopathy (L), Lymphadenopathy (R) Respiratory/Chest: No Respiratory Distress, Lungs Clear, Normal Breath Sounds, No Accessory Muscle Use Cardiovascular: Normal Peripheral Pulses, Regular Rate, Rhythm, No Edema, No Gallop, No JVD, No Murmur, No Rub GI/Abdominal: Normal Bowel Sounds, Soft, Non-Tender, No Organomegaly, No Distention, No Abnormal Bruit, No Mass (Female) Exam: Deferred Rectal (Female) Exam: Deferred Neuro Exam (Abbreviated): Alert, Oriented, CN II-XII Intact, Normal Cognition, No Motor/Sensory Deficits Back Exam: Normal Inspection, Full Range of Motion, NT Extremities: Normal Inspection, Normal Range of Motion, No Pedal Edema, Normal Capillary Refill Psychiatric: Normal Affect Skin Exam: Warm, Dry, Intact, Normal Color, No Rash Course - Vital Signs Last Recorded V/S: Last Vital Signs Temp 36.4 C 05/26/18 17:47 Pulse 89 05/26/18 17:47 Resp 20 05/26/18 17:47 BP 153/94 H 05/26/18 17:47 Pulse Ox 96 05/26/18 17:47 - Orders/Labs/Meds Orders: Active Orders 24 hr Category Date Time Status Head wo Cont [CT] Stat Exams 05/26/18 19:22 Taken Labs: Laboratory Tests 05/26/18 05/26/18 Range/Units 18:45 18:45 WBC 9.02 (3.98-10.04) K/mm3 RBC 4.55 (3.98-5.22) M/mm3 Hgb 13.5 (11.2-15.7) gm/L Hct 42.7 (34.1-44.9) % MCV 93.8 (79.4-94.8) fl MCH 29.7 (25.6-32.2) pg MCHC 31.6 L (32.2-35.5) g/dl RDW Std Deviation 44.9 (36.4-46.3) fL Plt Count 262 (182-369) K/mm3 MPV 10.2 (9.4-12.3) fl Neutrophils % (Manual) 70 H (40-60) % Band Neutrophils % 0 (0-10) % Lymphocytes % (Manual) 17 L (20-40) % Atypical Lymphs % 0 % Monocytes % (Manual) 1 L (2-10) % Eosinophils % (Manual) 11 H (0.7-5.8) % Basophils % (Manual) 1 (0.1-1.2) Platelet Estimate Adequate RBC Morph Comment Normal C-Reactive Protein 2.3 H* (<1.0) mg/dL Meds: Medications Discontinued Medications Generic Name Dose Route Start Last Admin Trade Name Mk PRN Reason Stop Dose Admin Benztropine Mesylate 1 mg 05/26/18 20:48 05/26/18 21:01 Cogentin PO 05/26/18 20:49 1 mg ONETIME STA Administration Haloperidol Lactate 5 mg 05/26/18 20:48 05/26/18 21:01 Haldol IM 05/26/18 20:49 5 mg ONETIME ONE Administration Ibuprofen 600 mg 05/26/18 18:35 05/26/18 18:52 Motrin PO 05/26/18 18:36 600 mg ONETIME ONE Administration Orphenadrine Citrate 100 mg 05/26/18 18:34 05/26/18 18:52 Norflex PO 05/26/18 18:35 100 mg ONETIME STA Administration - Re-Assessments/Exams Free Text/Narrative Re-Assessment/Exam: 05/26/18 18:36 By history and physical examination, the patient's right-sided headache is most likely due to sinusitis which is best treated with a nasal decongestant spray, such as oxymetazoline, however, I'm concerned by the patient's right zoroastrianism pain and tenderness, therefore I ordered a CBC and CRP to evaluate for giant cell arteritis. Despite a negative neurologic examination, I will also order a CT scan of the head, and ask for comment on the sinuses. If these are negative, the patient can safely be discharged home. In the meantime, the patient will be treated with Norflex and ibuprofen. 05/26/18 20:42 CT of the head without contrast is read by [facility] as: 1. Small air-fluid level in the left maxillary sinus. This may represent acute sinusitis. 2. No hydrocephalus, acute intracranial hemorrhage, or mass effect. 05/26/18 20:44 The patient reports no improvement in her headache from the Norflex and ibuprofen that she received earlier. The CT scan of the head seems to rule out sinusitis as the cause of her headache. Her WBC count was not elevated, and her CRP is only mildly elevated at 2.3, effectively ruling out giant cell arteritis. While the patient does not believe that her headache is migrainous, that is a possibility, and I will offer treatment. 05/26/18 20:48 The above was discussed with the patient, and she is willing to proceed with treatment for a migraine. I will order IM Haldol and oral Cogentin. Since she does not have nausea and dehydration, she does not need an IV for fluid and Zofran. If the Haldol is effective, I can discharge the patient home with a prescription for rizatriptan. If it is not effective, then the patient is most likely suffering from a tension-type headache related to her TMJ. 05/26/18 21:25 The patient reports some relief of her headache following IM Haldol, indicating that her headache is in fact migrainous. She is also reporting nausea at this time, however, therefore I will order some oral Zofran. I will discharge her home with a prescription for rizatriptan and Zofran. Departure - Departure Time of Disposition: 21:26 Disposition: Home, Self-Care 01 Condition: Fair Clinical Impression: Migraine headache without aura - Discharge Information *PRESCRIPTION DRUG MONITORING PROGRAM REVIEWED*: Not Applicable *COPY OF PRESCRIPTION DRUG MONITORING REPORT IN PATIENT MELINA: Not Applicable Referrals: Lewis Glover MD [Primary Care Provider] - Forms: ED Department Discharge Additional Instructions: You were seen in the emergency room for a right-sided headache with right facial pain. Workup in the ER included blood work and a CT scan of your head and face. Your workup returned unremarkable. You do not have temporal arteritis. You do not have sinusitis or sinus infection. You did not get much relief of your headache with a muscle relaxant and ibuprofen, however, you did get some relief following treatment for a migraine with IM Haldol. This indicates that your headache is a migraine. Get plenty of rest tonight in a dark, quiet place. Stay adequately hydrated. Prescriptions for the anti-migraine medicine rizatriptan (Maxalt) and the anti- nausea medicine Zofran have been sent to the [facility] located in the [place] [employer] Dissolve one tablet of rizatriptan in your mouth, like a lozenge, at the first sign of a migraine. You may repeat the rizatriptan after 2 hours, if needed, to a maximum of 3 tablets within a 24-hour period. Dissolve one tablet of Zofran on your tongue up to every 8 hours, as needed for nausea/vomiting. Follow-up with your PCP, Dr. Glover, as needed. If any other problems, please do not hesitate to return to the ER. - My Orders Last 24 Hours: My Active Orders 05/26/18 19:22 Head wo Cont [CT] Stat - Assessment/Plan Last 24 Hours: My Active Orders 05/26/18 19:22 Head wo Cont [CT] Stat
[2018-05-26] MEDS ORDERED: Haloperidol Lactate 5 MG/ML SDV IM ONE (20:48)
[2018-05-26] MEDS ORDERED: Benztropine 1 MG Tab PO STA (20:48)
[2018-05-26] MEDS ORDERED: Ondansetron 4 MG Tab.DIS PO ONE (21:26)
[2018-05-26] MEDS ORDERED: Ondansetron 4 MG Tab.DIS ONE (21:26)
--- NOTE | 2018-05-27 08:07 | CT ---
Head CT Technique: Multiple axial sections through the brain were obtained. Intravenous contrast was not utilized. Comparison: Previous head CT exam of 03/27/11. Findings: Ventricles along with basal cisterns and sulci over the convexities are within normal limits for the patient's age. Very minimal diminished density is noted within the periventricular white matter compatible with minimal small vessel ischemic demyelination change. No other abnormal parenchymal densities are seen. No evidence of intracranial hemorrhage. No midline shift or mass effect is seen. Bone window settings were reviewed which show no acute calvarial abnormality. Visualized sinuses show small air-fluid level within the left maxillary sinus and minimal mucosal thickening within the ethmoid sinuses. Impression: 1. Sinus disease as noted above. Given the air-fluid level within the left maxillary sinus difficult to exclude sinusitis. Please correlate with patient's symptoms. 2. Mild senescent change. 3. No acute intracranial abnormality is appreciated. Diagnostic code #3 I agree with preliminary report from [facility], finalized on 05/26/18, 9:36 PM Central Time
== END 2018-05-26 21:35 | disposition home or self-care (01) ==
LOC: JD.ED 17:15
DX: G43.009 Migraine without aura, not intractable, without status migrainosus (principal); E78.00 Pure hypercholesterolemia, unspecified; J45.909 Unspecified asthma, uncomplicated; Z88.0 Allergy status to penicillin; Z88.8 Allergy status to other drugs, medicaments and biological substances; Z79.899 Other long term (current) drug therapy
CPT/HCPCS: 36415; 70450; 85007; 85027; 86140; 96372; 99284; A9270; J1630

== ENCOUNTER 2018-11-05 05:58 | Day surgery (SDC) | payer MEDICARE, BC ==
[~2018-11-05 05:58] MED LIST changes: -Lactated Ringers 1,000 ML IV SCH; +Lidocaine 1%/Sod Bicarbonate in NS 8.4% 1 ML Syringe IDERM PRN; -Lidocaine 1%/Sod Bicarbonate in NS 8.4% 1 ML Syringe IV PRN; -ceFAZolin 1 GM Vial ONE
[2018-11-05] MEDS ORDERED: oxyCODONE ER 10 MG TAB.ER PO SCH (06:00)
[2018-11-05] MEDS ORDERED: Acetaminophen 325 MG Tab PO SCH (06:00)
[2018-11-05] MEDS ORDERED: Pregabalin 25 MG Cap PO SCH (06:00)
[2018-11-05] MEDS: Lactated Ringers 1,000 ML IV SCH ×2 (06:30→10:57)
--- NOTE | 2018-11-05 06:54 | PCM.PREANE ---
Preanesthetic Assessment - Procedure Proposed Procedure: Right total knee arthoplasty - Anesthesia/Transfusion/Family Hx Anesthesia History: Prior Anesthesia Without Reaction Family History of Anesthesia Reaction: No Transfusion History: Unknown Type of Transfusion Reactions: Reports: Unknown Intubation History: Unknown - Review of Systems General: No Symptoms Pulmonary: Other (asthma ) Cardiovascular: No Symptoms Gastrointestinal: No Symptoms Neurological: Other (back pain remaining after back surgery, radiates down left leg at times ) Other: Reports: Depression, Anxiety - Physical Assessment NPO Status Date: 11/04/18 NPO Status Time: 20:00 Height: 1.65 m Weight: 67.6 kg ASA Class: 2 Mental Status: Alert & Oriented x3 Airway Class: Mallampati = 2 Dentition: Reports: Bendena(s) (permanent ) Thyro-Mental Finger Breadths: 3 Mouth Opening Finger Breadths: 4 (hx of tmj surgery ) ROM/Head Extension: Full - Lab Values: Laboratory Last Values C-Reactive Protein 0.3 mg/dL (<1.0) 11/02/18 09:27 MRSA (PCR) Negative 10/23/18 10:28 - Allergies Allergies/Adverse Reactions: Allergies Allergy/AdvReac Type Severity Reaction Status Date / Time denosumab [From Prolia] Allergy Rash Verified 11/02/18 12:12 niacin Allergy Rash Verified 06/22/18 03:49 atorvastatin calcium AdvReac Muscle Verified 06/22/18 03:49 [From Lipitor] Aches rosuvastatin calcium AdvReac Muscle Verified 06/22/18 03:49 [From Crestor] Aches Niacin Allergy Flushing Uncoded 11/02/18 12:12 - Blood Blood Available: No - Anesthesia Plan Pre-Op Medication Ordered: None - Acknowledgements Anesthesia Type Planned: Spinal Pt an Appropriate Candidate for the Planned Anesthesia: Yes Alternatives and Risks of Anesthesia Discussed w Pt/Guardian: Yes Pt/Guardian Understands and Agrees with Anesthesia Plan: Yes PreAnesthesia Questionnaire HEENT History: Reports: Hard of Hearing, Impaired Vision, Macular Degeneration, Sinusitis, Other (See Below) Other HEENT History: wears corrective lenses Cardiovascular History: Reports: High Cholesterol, Hypertension Other Cardiovascular History: hypercholesterolemia Respiratory History: Reports: Asthma Other Respiratory History: Cough, Pneumonia Gastrointestinal History: Reports: Chronic Constipation, GERD, Other (See Below) Other Gastrointestinal History: Colitis, Ulcer Genitourinary History: Reports: Urinary Incontinence, Other (See Below) Other Genitourinary History: Hematuria [employer]BI[employer] MECH[employer]IC History: Reports: Endometriosis, Musculoskeletal History: Reports: Back Pain, Chronic, Fracture, Osteoarthritis Other Musculoskeletal History: Myalgia, Myositis Neurological History: Reports: Other (See Below) Other Neuro History: myalgia, lumbar stenosis with neurogenic claudication, spinal stenosis Psychiatric History: Reports: Anxiety, Depression, Panic Attack, Other (See Below) Other Psychiatric History: major depressive disorder, malaise, fatigue, psyciatric care, suicidal behavior Endocrine/Metabolic History: Reports: Hypothyroidism Oncologic (Cancer) History: Reports: Squamous Cell Carcinoma Dermatologic History: Reports: Other (See Below) Other Dermatologic History: SCC, Lipoma Excision - Infectious Disease History Infectious Disease History: Reports: None - Past Surgical History HEENT Surgical History: Reports: Cataract Surgery, LASIK, Oral Surgery, Other ( See Below) Other HEENT Surgeries/Procedures: TMJ surgery Cardiovascular Surgical History: Reports: None GI Surgical History: Reports: Appendectomy, Cholecystectomy, Colonoscopy, EGD Female Surgical History: Reports: Hysterectomy, Oophorectomy Neurological Surgical History: Reports: Lumbar Spine Other Neurological Surgeries/Procedures: L4 & L5 Surgery Musculoskeletal Surgical History: Reports: Knee Replacement, Other (See Below) Other Musculoskeletal Surgeries/Procedures:: Left Total Knee Arthroplasty ( May 2016) Oncologic Surgical History: Reports: Other (See Below) Other Oncologic Surgeries/Procedures: Lipoma excision - SUBSTANCE USE Smoking Status *Q: Never Smoker Days Per Week of Alcohol Use: 0 Recreational Drug Use History: No - HOME MEDS Home Medications: Home Meds ALPRAZolam [Xanax] 0.5 mg PO BID PRN 11/02/18 [History] Acetaminophen/HYDROcodone [[place] 325-5 MG] 1 tab PO Q6H PRN 11/02/18 [History] Cholecalciferol (Vitamin D3) [Vitamin D] 5,000 unit PO DAILY 11/02/18 [History] Docusate Sodium [Colace] 100 mg PO DAILY PRN 11/02/18 [History] Melatonin 5 mg PO BEDTIME PRN 11/02/18 [History] Polyethylene Glycol 3350 [Miralax] 1 packet PO DAILY PRN 11/02/18 [History] Pravastatin [Pravachol] 10 mg PO DAILY 11/02/18 [History] Rizatriptan Benzoate [Rizatriptan] 10 mg PO BID PRN 11/02/18 [History] - CURRENT (IN HOUSE) MEDS Current Meds: Current Medications Acetaminophen (Tylenol) 975 mg PO ONETIME GLORIA Stop: 11/05/18 12:00 Last Admin: 11/05/18 06:23 Dose: 975 mg Lactated Ringer's (Ringers, Lactated) 1,000 mls @ 125 mls/hr IV ASDIRECTED GLORIA Stop: 11/05/18 23:00 Lidocaine/Sodium Bicarbonate (Buffered Lidocaine 1% In Ns 8.4%) 0.25 ml IDERM ONETIME PRN PRN Reason: Prior to IV Start Stop: 11/05/18 18:00 Oxycodone HCl (Oxycontin) 10 mg PO ONETIME GLORIA Stop: 11/05/18 12:00 Last Admin: 11/05/18 06:22 Dose: 10 mg Pregabalin (Lyrica) 50 mg PO ONETIME GLORIA Stop: 11/05/18 12:00 Last Admin: 11/05/18 06:22 Dose: 50 mg Sodium Chloride (Saline Flush) 10 ml FLUSH ASDIRECTED PRN PRN Reason: Keep Vein Open Stop: 11/05/18 18:00 Discontinued Medications Bupivacaine HCl (Sensorcaine-Mpf 0.25%) Confirm Administered Dose 30 ml .ROUTE .STK-MED ONE Stop: 11/05/18 06:33 Cefazolin Sodium (Ancef) Confirm Administered Dose 2 gm .ROUTE .STK-MED ONE Stop: 11/05/18 06:33 Iodine (Iodine 2% Mild Tincture) Confirm Administered Dose 30 ml .ROUTE .STK- MED ONE Stop: 11/05/18 06:33 Tranexamic Acid (Cyklokapron) Confirm Administered Dose 1,000 mg .ROUTE .STK- MED ONE Stop: 11/05/18 06:32 Vancomycin HCl (Vancomycin) Confirm Administered Dose 1 gm .ROUTE .STK-MED ONE Stop: 11/05/18 06:33
[2018-11-05] MEDS ORDERED: Propofol 200 MG/20 ML SDV ONE ×2 (07:02→08:29)
[2018-11-05] MEDS ORDERED: Lidocaine 1% 4 ML ONE (07:03)
[2018-11-05] MEDS ORDERED: ceFAZolin 1 GM Vial ONE (07:04)
[2018-11-05] MEDS ORDERED: Ondansetron 4 MG/2 ML SDV ONE (07:06)
[2018-11-05] MEDS ORDERED: Bupivacaine 0.75% 30 ML SDV ONE (07:10)
[2018-11-05] MEDS ORDERED: Lactated Ringers 1,000 ML ONE (07:45)
[2018-11-05] MEDS ORDERED: Midazolam 1 MG/ML 2 ML SDV ONE (08:00)
[2018-11-05] MEDS: Iodine/Sodium Iodide 2% Tincture 30 ML Bottle ONE ×2 (08:12→08:19)
[2018-11-05] MEDS: Bupivacaine 0.25% 10 ML SDV ONE ×2 (08:13→08:24)
[2018-11-05] MEDS: ceFAZolin 1 GM Vial ONE ×2 (08:13→08:21)
[2018-11-05] MEDS: Morphine 8 MG, EPINEPHrine 0.3 MG, Cefuroxime 750 MG, Ketorolac 30 MG, Sodium Chloride ... ONE ×10 (08:13→08:24)
[2018-11-05] MEDS: Vancomycin 1 GM SDV ONE ×2 (08:14→08:27)
[2018-11-05] MEDS ORDERED: Ropivacaine 0.5% 5 MG/ML 30 ML SDV ONE (08:30)
[2018-11-05] MEDS ORDERED: EPINEPHrine 1 MG/1 ML Amp ONE (08:30)
[2018-11-05] MEDS ORDERED: diphenhydrAMINE 50 MG/ML SDV IVPUSH PRN (09:12)
[2018-11-05] MEDS ORDERED: Ondansetron 4 MG/2 ML SDV IVPUSH PRN ×2 (09:12→09:30)
[2018-11-05] MEDS: fentaNYL 100 MCG/2 ML SDV IVPUSH PRN ×2 (09:18→09:30)
--- NOTE | 2018-11-05 09:19 | PCM.POSTAN ---
POST ANESTHESIA ASSESSMENT - MENTAL STATUS Mental Status: Alert - VITAL SIGNS Vital Signs: Last Vital Signs Temp 36.2 C 11/05/18 06:15 Pulse 79 11/05/18 06:15 Resp 16 11/05/18 06:15 BP 141/77 H 11/05/18 06:15 Pulse Ox 96 11/05/18 06:15 - RESPIRATORY Respiratory Status: Respiratory Rate WNL, Airway Patent, O2 Saturation Stable, Supplemental Oxygen - CARDIOVASCULAR CV Status: Pulse Rate WNL, Blood Pressure Stable - GASTROINTESTINAL GI Status: No Symptoms - PAIN Pain Score: 8 (being managed by CADDIE SUPERVISOR and post op block ) - POST OP HYDRATION Hydration Status: Adequate & Stable
[2018-11-05] MEDS ORDERED: HYDROmorphone 0.5 MG/0.5 ML Syringe IVPUSH PRN (09:24)
[2018-11-05] MEDS ORDERED: Naloxone 0.4 MG/ML SDV IVPUSH PRN (09:30)
[2018-11-05] MEDS ORDERED: Sennosides 8.6 MG Tab PO PRN (09:30)
[2018-11-05] MEDS ORDERED: Morphine 2 MG/ML Syringe IVPUSH PRN (09:30)
[2018-11-05] MEDS ORDERED: Bisacodyl 5 MG Tab PO PRN (09:30)
[2018-11-05] MEDS ORDERED: Magnesium Hydroxide 400 MG/5 ML Susp 30 ML Cup PO PRN (09:30)
--- NOTE | 2018-11-05 09:31 | PCM.SN ---
- Free Text/Narrative Note: Right selective femoral nerve block at the adductor canal for post-procedure pain control under US guidance requested by Dr. Escalera. Date:11/05/18 Time Out:917 Start: 920 End: 923 Chart reviewed. Consent signed. Questions answered. Appropriate monitors applied. Time out performed. Right mid-shaft femur identified with ultrasound, scanning medially of femur, the femoral artery in the adductor canal visualized , and the femoral nerve located laterally to the artery. The skin was prepped lateral to the ultrasound probe with chlorahexadine times two. The 21ga 4 insulated block needle was inserted under direct ultrasound guidance into the adductor canal. 25mL of 0.5% ropivacaine with 1:200,000 epinephrine was injected circumferentially around the nerve with intermittent negative aspiration noted. Patient tolerated the procedure well. Sterile technique noted along with sterile gloves, mask, and sterile probe cover. See picture on progress note and vital signs on nurses notes. Block completed in PACU. Francis Manzo CRNA
--- NOTE | 2018-11-05 10:18 | CR ---
Right knee: AP and lateral views of the right knee were obtained. Comparison: No prior right knee exam. Knee prosthesis is seen. Components are aligned. Underlying bony structures are intact. Soft tissue air is noted from the surgical procedure. Impression: 1. Satisfactory postop radiographic appearance of recently placed right knee prosthesis. Diagnostic code #2
[2018-11-05] MEDS: Ketorolac 15 MG/ML SDV IVPUSH PRN ×2 (11:50→17:38)
[2018-11-05] MEDS: Acetaminophen/oxyCODONE 325-5 MG Tab PO PRN ×2 (13:20→23:48)
[2018-11-05] MEDS: Cyclobenzaprine 10 MG Tab PO PRN (15:08)
[2018-11-05] MEDS: ceFAZolin 2 GM in Premix Bag 1 BAG IV SCH ×2 (15:09→23:50)
[2018-11-05] MEDS ORDERED: Polyethylene Glycol 3350 Powder 17 GM Packet PO PRN (16:04)
[2018-11-05] MEDS ORDERED: ALPRAZolam 0.5 MG Tab PO PRN (16:04)
[2018-11-05] MEDS ORDERED: RIZATRIPTAN BENZOATE 10 MG PO PRN (16:04)
[2018-11-05] MEDS ORDERED: Melatonin 3 MG Tab PO PRN (16:30)
[2018-11-05] MEDS: Docusate Sodium 100 MG Cap PO SCH (21:17)
[2018-11-05] MEDS: Famotidine 20 MG Tab PO SCH (21:17)
[2018-11-06] MEDS: ceFAZolin 2 GM in Premix Bag 1 BAG IV SCH (06:31)
[2018-11-06] MEDS: Acetaminophen/oxyCODONE 325-5 MG Tab PO PRN ×2 (06:48→10:38)
[2018-11-06] MEDS: Famotidine 20 MG Tab PO SCH (08:25)
[2018-11-06] MEDS: Docusate Sodium 100 MG Cap PO SCH (08:25)
[2018-11-06] MEDS: Cyclobenzaprine 10 MG Tab PO PRN (08:26)
[2018-11-06 08:53] VITALS: BP 136/68
--- NOTE | 2018-11-06 08:59 | PCM.SURGPN ---
- General Info Date of Service: 11/06/18 POD#: 1 Functional Status: Reports: Pain Controlled, Tolerating Diet, Ambulating, Urinating, Incentive Spirometry, Other (The pt states pain has been better controlled now verses with left TKA years ago.) - Patient Data Vitals - Most Recent: Last Vital Signs Temp 97.0 F 11/06/18 08:00 Pulse 59 L 11/06/18 08:27 Resp 18 11/06/18 08:27 BP 136/68 11/06/18 08:27 Pulse Ox 97 11/06/18 08:27 Weight - Most Recent: 149 lb I&O - Last 24 Hours: Intake & Output 11/05/18 11/06/18 11/06/18 22:59 06:59 14:59 Intake Total 60 Balance 60 Lab Results Last 24 Hrs: Laboratory Results - last 24 hr 11/06/18 11/06/18 Range/Units 07:04 07:04 WBC 11.38 H (3.98-10.04) K/mm3 RBC 3.60 L (3.98-5.22) M/mm3 Hgb 10.5 L D (11.2-15.7) gm/L Hct 33.8 L (34.1-44.9) % MCV 93.9 (79.4-94.8) fl MCH 29.2 (25.6-32.2) pg MCHC 31.1 L (32.2-35.5) g/dl RDW Std Deviation 43.7 (36.4-46.3) fL Plt Count 215 (182-369) K/mm3 MPV 11.6 (9.4-12.3) fl Sodium 140 (136-145) mEq/L Potassium 4.1 (3.5-5.1) mEq/L Chloride 105 (98-107) mEq/L Carbon Dioxide 25 (21-32) mEq/L Anion Gap 14.1 (5-15) BUN 23 H (7-18) mg/dL Creatinine 0.9 (0.55-1.02) mg/dL Est Cr Clr Drug Dosing 50.84 mL/min Estimated GFR (MDRD) > 60 (>60) mL/min BUN/Creatinine Ratio 25.6 H (14-18) Glucose 95 (83-115) mg/dL Calcium 9.0 (8.5-10.1) mg/dL Total Bilirubin 0.4 (0.2-1.0) mg/dL AST 28 (15-37) U/L ALT 39 (14-59) U/L Alkaline Phosphatase 50 (46-116) U/L Total Protein 6.5 (6.4-8.2) g/dl Albumin 3.1 L (3.4-5.0) g/dl Globulin 3.4 gm/dL Albumin/Globulin Ratio 0.9 L (1-2) Med Orders - Current: Current Medications Alprazolam (Xanax) 0.5 mg PO BID PRN PRN Reason: Anxiety Aspirin (Ecotrin) 325 mg PO BID [facility] Last Admin: 11/06/18 08:25 Dose: 325 mg Bisacodyl (Dulcolax) 5 mg PO DAILY PRN PRN Reason: Constipation Cholecalciferol (Vitamin D3) 5,000 unit PO DAILY [facility] Last Admin: 11/06/18 08:25 Dose: 5,000 unit Cyclobenzaprine HCl (Flexeril) 10 mg PO TID PRN PRN Reason: Spasms Last Admin: 11/06/18 08:26 Dose: 10 mg Docusate Sodium (Colace) 100 mg PO BID [facility] Last Admin: 11/06/18 08:25 Dose: 100 mg Famotidine (Pepcid) 20 mg PO Q12H [facility] Last Admin: 11/06/18 08:25 Dose: 20 mg Ketorolac Tromethamine (Toradol) 15 mg IVPUSH Q6H PRN PRN Reason: Pain Last Admin: 11/05/18 17:38 Dose: 15 mg Magnesium Hydroxide (Milk Of Magnesia) 30 ml PO BID PRN PRN Reason: Constipation Melatonin (Melatonin) 4.5 mg PO BEDTIME PRN PRN Reason: INSOMNIA Morphine Sulfate (Morphine) 2 mg IVPUSH Q2H PRN PRN Reason: Breakthrough Pain Naloxone HCl (Narcan) 0.1 mg IVPUSH Q5M PRN PRN Reason: Oversedation Non-Formulary Medication (Rizatriptan Benzoate [Rizatriptan]) 10 mg PO BID PRN PRN Reason: Migraines Ondansetron HCl (Zofran) 4 mg IVPUSH Q6H PRN PRN Reason: Nausea/Vomiting Oxycodone/Acetaminophen (Percocet 325-5 Mg) 1 - 2 tab PO Q4H PRN PRN Reason: Pain Last Admin: 11/06/18 06:48 Dose: 2 tab Polyethylene Glycol (Miralax) 17 gm PO DAILY PRN PRN Reason: Constipation Senna (Senna) 8.6 mg PO BID PRN PRN Reason: Constipation Simvastatin (Zocor) 5 mg PO DAILY [facility] Last Admin: 11/06/18 08:25 Dose: 5 mg Discontinued Medications Acetaminophen (Tylenol) 975 mg PO ONETIME [facility] Stop: 11/05/18 12:00 Last Admin: 11/05/18 06:23 Dose: 975 mg Bupivacaine HCl (Sensorcaine-Mpf 0.25%) Confirm Administered Dose 30 ml .ROUTE .STK-MED ONE Stop: 11/05/18 06:33 Last Admin: 11/05/18 08:24 Dose: 30 ml Bupivacaine HCl (Sensorcaine-Mpf 0.75%) Confirm Administered Dose 30 ml .ROUTE .STK-MED ONE Stop: 11/05/18 07:11 Cefazolin Sodium (Ancef) Confirm Administered Dose 2 gm .ROUTE .STK-MED ONE Stop: 11/05/18 06:33 Last Admin: 11/05/18 08:21 Dose: 2 gm Cefazolin Sodium (Ancef) Confirm Administered Dose 2 gm .ROUTE .STK-MED ONE Stop: 11/05/18 07:05 Morphine Sulfate 8 mg/Epinephrine HCl 0.3 mg/Cefuroxime Sodium 750 mg/Ketorolac Tromethamine 30 mg/Sodium Chloride 27.9 ml 0 mg .XX ONETIME ONE Stop: 11/05/18 07:46 Last Admin: 11/05/18 08:24 Dose: 788.3 mg Diphenhydramine HCl (Benadryl) 25 mg IVPUSH Q6H PRN PRN Reason: pruritis Stop: 11/05/18 12:00 Epinephrine HCl (Adrenalin) Confirm Administered Dose 1 mg .ROUTE .STK-MED ONE Stop: 11/05/18 08:31 Fentanyl (Sublimaze) 50 mcg IVPUSH Q5M PRN PRN Reason: Pain Stop: 11/05/18 12:00 Last Admin: 11/05/18 09:30 Dose: 50 mcg Hydromorphone HCl (Dilaudid) 0.5 mg IVPUSH Q1H PRN PRN Reason: Pain (severe 7-10) Stop: 11/05/18 12:00 Lactated Ringer's (Ringers, Lactated) 1,000 mls @ 125 mls/hr IV ASDIRECTED [facility] Stop: 11/05/18 23:00 Last Admin: 11/05/18 10:57 Dose: 125 mls/hr Cefazolin Sodium/Dextrose 2 gm (/ Premix) 50 mls @ 100 mls/hr IV Q8H [facility] Stop: 11/06/18 07:29 Last Admin: 11/06/18 06:31 Dose: 100 mls/hr Lidocaine HCl (Xylocaine-Mpf 1%) Confirm Administered Dose 4 mls @ as directed .ROUTE .STK-MED ONE Stop: 11/05/18 07:04 Lactated Ringer's (Ringers, Lactated) Confirm Administered Dose 1,000 mls @ as directed .ROUTE .STK-MED ONE Stop: 11/05/18 07:46 Iodine (Iodine 2% Mild Tincture) Confirm Administered Dose 30 ml .ROUTE .STK- MED ONE Stop: 11/05/18 06:33 Last Admin: 11/05/18 08:19 Dose: 18 ml Lidocaine HCl (Xylocaine-Mpf 1%) Confirm Administered Dose 5 ml .ROUTE .STK-MED ONE Stop: 11/05/18 07:11 Lidocaine/Sodium Bicarbonate (Buffered Lidocaine 1% In Ns 8.4%) 0.25 ml IDERM ONETIME PRN PRN Reason: Prior to IV Start Stop: 11/05/18 18:00 Last Admin: 11/05/18 06:30 Dose: 0.25 ml Midazolam HCl (Versed 1 Mg/Ml) Confirm Administered Dose 2 mg .ROUTE .STK-MED ONE Stop: 11/05/18 08:01 Ondansetron HCl (Zofran) Confirm Administered Dose 4 mg .ROUTE .STK-MED ONE Stop: 11/05/18 07:07 Ondansetron HCl (Zofran) 4 mg IVPUSH ONETIME PRN PRN Reason: Nausea/Vomiting Stop: 11/05/18 12:00 Oxycodone HCl (Oxycontin) 10 mg PO ONETIME [facility] Stop: 11/05/18 12:00 Last Admin: 11/05/18 06:22 Dose: 10 mg Pregabalin (Lyrica) 50 mg PO ONETIME [facility] Stop: 11/05/18 12:00 Last Admin: 11/05/18 06:22 Dose: 50 mg Propofol (Diprivan 20 Ml) Confirm Administered Dose 400 mg .ROUTE .STK-MED ONE Stop: 11/05/18 07:03 Propofol (Diprivan 20 Ml) Confirm Administered Dose 200 mg .ROUTE .STK-MED ONE Stop: 11/05/18 08:30 Ropivacaine (Naropin 0.5%) Confirm Administered Dose 30 ml .ROUTE .STK-MED ONE Stop: 11/05/18 08:31 Sodium Chloride (Saline Flush) 10 ml FLUSH ASDIRECTED PRN PRN Reason: Keep Vein Open Stop: 11/05/18 18:00 Tranexamic Acid (Cyklokapron) Confirm Administered Dose 1,000 mg .ROUTE .STK- MED ONE Stop: 11/05/18 06:32 Last Admin: 11/05/18 08:32 Dose: 1,000 mg Vancomycin HCl (Vancomycin) Confirm Administered Dose 1 gm .ROUTE .STK-MED ONE Stop: 11/05/18 06:33 Last Admin: 11/05/18 08:27 Dose: 1 gm - Exam Wound/Incisions: Dressing Dry and Intact General: Alert, Cooperative, No Acute Distress Lungs: Normal Respiratory Effort Extremities: Other (NVS intact for RLE. Felicitas's negative.) - Problem List Review Problem List Initiated/Reviewed/Updated: Yes - My Orders Last 24 Hours: Active Orders 24 hr Category Date Time Status Notify Provider [RC] ASDIRECTED Care 11/05/18 09:12 Active Pulse Oximetry [RC] ASDIRECTED Care 11/05/18 09:12 Active Ready for Discharge [RC] PER UNIT ROUTINE Care 11/06/18 08:57 Ordered Regular Diet [DIET] Diet 11/05/18 Lunch Active ALPRAZolam [Xanax] Med 11/05/18 16:04 Active 0.5 mg PO BID PRN Acetaminophen/oxyCODONE [Percocet 325-5 MG] Med 11/05/18 09:30 Active 1 - 2 tab PO Q4H PRN Aspirin [Ecotrin] Med 11/06/18 09:00 Active 325 mg PO BID Bisacodyl [Dulcolax] Med 11/05/18 09:30 Active 5 mg PO DAILY PRN Cholecalciferol (Vitamin D3) [Vitamin D3] Med 11/06/18 09:00 Active 5,000 unit PO DAILY Cyclobenzaprine [Flexeril] Med 11/05/18 09:30 Active 10 mg PO TID PRN Docusate Sodium [Colace] Med 11/05/18 21:00 Active 100 mg PO BID Famotidine [Pepcid] Med 11/05/18 21:00 Active 20 mg PO Q12H Ketorolac [Toradol] Med 11/05/18 09:30 Active 15 mg IVPUSH Q6H PRN Magnesium Hydroxide [Milk of Magnesia] Med 11/05/18 09:30 Active 30 ml PO BID PRN Melatonin Med 11/05/18 16:30 Active 4.5 mg PO BEDTIME PRN Morphine Med 11/05/18 09:30 Active 2 mg IVPUSH Q2H PRN Naloxone [Narcan] Med 11/05/18 09:30 Active 0.1 mg IVPUSH Q5M PRN Ondansetron [Zofran] Med 11/05/18 09:30 Active 4 mg IVPUSH Q6H PRN Polyethylene Glycol 3350 [MiraLAX] Med 11/05/18 16:04 Active 17 gm PO DAILY PRN Rizatriptan Benzoate [Rizatriptan] Med 11/05/18 16:04 Pending 10 mg PO BID PRN Sennosides [Senna] Med 11/05/18 09:30 Active 8.6 mg PO BID PRN Simvastatin [Zocor] Med 11/06/18 09:00 Active 5 mg PO DAILY Medication Orders Alprazolam (Xanax) 0.5 mg PO BID PRN PRN Reason: Anxiety Aspirin (Ecotrin) 325 mg PO BID [facility] Last Admin: 11/06/18 08:25 Dose: 325 mg Bisacodyl (Dulcolax) 5 mg PO DAILY PRN PRN Reason: Constipation Cholecalciferol (Vitamin D3) 5,000 unit PO DAILY [facility] Last Admin: 11/06/18 08:25 Dose: 5,000 unit Cyclobenzaprine HCl (Flexeril) 10 mg PO TID PRN PRN Reason: Spasms Last Admin: 11/06/18 08:26 Dose: 10 mg Admin: 11/05/18 15:08 Dose: 10 mg Docusate Sodium (Colace) 100 mg PO BID [facility] Last Admin: 11/06/18 08:25 Dose: 100 mg Admin: 11/05/18 21:17 Dose: 100 mg Famotidine (Pepcid) 20 mg PO Q12H [facility] Last Admin: 11/06/18 08:25 Dose: 20 mg Admin: 11/05/18 21:17 Dose: 20 mg Ketorolac Tromethamine (Toradol) 15 mg IVPUSH Q6H PRN PRN Reason: Pain Last Admin: 11/05/18 17:38 Dose: 15 mg Admin: 11/05/18 11:50 Dose: 15 mg Magnesium Hydroxide (Milk Of Magnesia) 30 ml PO BID PRN PRN Reason: Constipation Melatonin (Melatonin) 4.5 mg PO BEDTIME PRN PRN Reason: INSOMNIA Morphine Sulfate (Morphine) 2 mg IVPUSH Q2H PRN PRN Reason: Breakthrough Pain Naloxone HCl (Narcan) 0.1 mg IVPUSH Q5M PRN PRN Reason: Oversedation Non-Formulary Medication (Rizatriptan Benzoate [Rizatriptan]) 10 mg PO BID PRN PRN Reason: Migraines Ondansetron HCl (Zofran) 4 mg IVPUSH Q6H PRN PRN Reason: Nausea/Vomiting Oxycodone/Acetaminophen (Percocet 325-5 Mg) 1 - 2 tab PO Q4H PRN PRN Reason: Pain Last Admin: 11/06/18 06:48 Dose: 2 tab Admin: 11/05/18 23:48 Dose: 2 tab Admin: 11/05/18 13:20 Dose: 2 tab Polyethylene Glycol (Miralax) 17 gm PO DAILY PRN PRN Reason: Constipation Senna (Senna) 8.6 mg PO BID PRN PRN Reason: Constipation Simvastatin (Zocor) 5 mg PO DAILY [facility] Last Admin: 11/06/18 08:25 Dose: 5 mg - Assessment Assessment (Free Text/Narrative):: POD#1 - right TKA - Plan Plan (Free Text/Narrative):: 1. Discharge to home today. 2. 325mg ASA PO BID, frequent mobility, TEDs. 3. Outpatient therapy. 4. Hgb 10.5. The pt's case was discussed with Dr. Escalera.
[2018-11-06] MEDS ORDERED: Simvastatin 10 MG Tab PO SCH (09:00)
[2018-11-06] MEDS ORDERED: Cholecalciferol (Vitamin D3) 5,000 UNIT Tab PO SCH (09:00)
[2018-11-06] MEDS ORDERED: Aspirin 325 MG Tab.EC PO SCH (09:00)
[2018-11-06] MEDS: Ketorolac 15 MG/ML SDV IVPUSH PRN (09:47)
[2018-11-06] MEDS ORDERED: RIZATRIPTAN BENZOATE 10 MG PO PRN (12:17)
--- NOTE | 2018-11-06 14:20 | PCM48HPAN ---
Post Anesthesia Note - EVALUATION WITHIN 48HRS OF ANESTHETIC Vital Signs in Normal Range: Yes Patient Participated in Evaluation: Yes Respiratory Function Stable: Yes Airway Patent: Yes Cardiovascular Function Stable: Yes Hydration Status Stable: Yes Pain Control Satisfactory: Yes Nausea and Vomiting Control Satisfactory: Yes Mental Status Recovered: Yes Vital Signs: Last Vital Signs Temp 36.1 C 11/06/18 08:00 Pulse 59 L 11/06/18 08:27 Resp 18 11/06/18 08:27 BP 136/68 11/06/18 08:27 Pulse Ox 97 11/06/18 08:27
--- NOTE | 2018-11-09 13:46 | PCM.OPNOTE ---
- General Post-Op/Procedure Note Date of Surgery/Procedure: 11/05/18 Operative Procedure(s): right total knee arthroplasty Pre Op Diagnosis: right knee osteoarthrosis Post-Op Diagnosis: Same Anesthesia Technique: Local, MAC, Spinal Primary Surgeon: Toney Escalera Anesthesia Provider: Allie Sapp Wood Pattern Maker: Alyson Geronimo Wood Pattern Maker: Jo Short in mLs: 5 Complications: None Condition: Good Free Text/Narrative:: size 4/4 9mm 29x9
--- NOTE | 2018-11-09 14:27 | OR ---
DATE OF OPERATION: 11/05/2018 SURGEON: Toney Escalera MD OPERATION PERFORMED: Right total knee arthroplasty. PREOPERATIVE DIAGNOSIS: Right knee osteoarthrosis. POSTOPERATIVE DIAGNOSIS: Right knee osteoarthrosis. ANESTHESIA: Local MAC with spinal. ANESTHESIA PROVIDER: Allie Sapp. DYE REEL OPERATOR HELPER: Alyson Geronimo PA-C; and Jo Short LPN. ESTIMATED BLOOD LOSS: 5 mL. COMPLICATIONS: None. CONDITION: Stable. IMPLANTS: 1. [place] size 4 cemented PS femur. 2. [place] size 4 cemented [place] tibial baseplate. 3. Teodoro size 4, 9 mm PS X3 polyethylene. 4. [place] size 29 x 9 mm cemented asymmetric patella. DESCRIPTION OF PROCEDURE: The patient was identified in the preop holding area. Proper site was marked and identified by the surgeon. The patient was taken back to the operating theater. After adequate anesthesia, the patient's right lower extremity had a nonsterile tourniquet applied and it was sterilely prepped and draped in the usual sterile fashion. OR time-out was performed. The patient received 2 g IV Ancef. At this time, the right lower extremity was exsanguinated. Tourniquet was insufflated to 300 mmHg. Standard medial parapatellar incision was made. Medial parapatellar arthrotomy was created. Deep fibers of the MCL were raised and anterior fat pad was resected. At this time, attention was turned to the patella. Patella measured 22, it was resected to a 13 for 29 x 9 mm patella. Drill holes were then drilled and found to be in adequate position. The drill was then drilled in the distal femur and the intramedullary distal femoral cutting guide was then placed. 8 mm was resected off the distal femur and was found to be an adequate resection. Sizing guide was placed. It was found to be a size 4 press-fit PS femur that was shown on the implant record at the beginning of this dictation. The drill holes were drilled for the epicondylar axis using [place] line and epicondyles as reference. At this time, the 4-in - 1 cutting block was placed. An anterior posterior and anterior and posterior chamfer cuts were then completed. box cut was completed at this time. Attention was turned to the tibia. The posterior medial lateral retractors were placed. The extramedullary tibial guide was placed. It was placed in the old footprint of the ACL. It was aligned with the center of the ankle and 0 degrees of slope, 9 mm was then resected off the unaffected side. There was found to be an acceptable reduction. At this time, posterior osteophytes were removed along with medial and lateral meniscus. A trial implant was placed with a correct sized tibia that was mentioned at the beginning of the dictation. A [place] size 4, 9 mm PS X3 polyethylene insert was then placed. The patient's knee was brought through range of motion. The patella was tracking centrally and was stable to varus and valgus stress. Alignment was found to be roughly at 0 degrees. The tibia was stamped and drilled in proper rotation. The universal tibial base plate was impacted in place. Next, the [place] size 4 cemented PS femur impacted into place and the Te[place]oro size 9 mm PS X3 polyethylene insert was placed. The patient's knee was brought into full extension. The patella was then cemented in place at this time. One liter dilute Betadine solution was irrigated through the knee along with 3 L of pulse lavage irrigation with Ancef. Periarticular injection was then completed. The patient's knee was brought through a range of motion. Once the cement had time to set up and it was found to be stable to varus valgus stress, the patella was tracking centrally with full range of motion. At this time, a #2 barbed suture was used for closure of the medial parapatellar arthrotomy. Topical tranexamic acid was placed. 2-0 Vicryl was used subcutaneously, Prineo was used for the skin. The patient tolerated the procedure well and was sent to the PACU in stable condition. MMODAL /[id number] [place]
== END 2018-11-06 11:34 | disposition home or self-care (01) ==
LOC: JD.SDS 05:58 → JD.OB 06:02 → JD.SDS 11-06 11:00 → JD.OB 11-06 11:00 → JD.SDS 11-06 11:34
PROVIDERS: ATTEND Orthopaedic Surgery
DX: M17.11 Unilateral primary osteoarthritis, right knee (principal); I10 Essential (primary) hypertension; E78.2 Mixed hyperlipidemia; J45.909 Unspecified asthma, uncomplicated; R73.09 Other abnormal glucose; G89.18 Other acute postprocedural pain; Z88.8 Allergy status to other drugs, medicaments and biological substances; Z79.899 Other long term (current) drug therapy
CPT/HCPCS: 27447; 36415; 64447; 73560; 80053; 85027; 86140; 87641; 97110; 97116; 97161; 97165; 97535; A9270; C1713; C1776; J0171; J0690; J0697; J1885; J2001; J2250; J2270; J2405; J2704; J2795; J3010; J3370; J3490; J7120; 01402; 64450

== ENCOUNTER 2020-07-16 13:05 | Inpatient (IN) | payer MEDICARE, BC ==
[2020-07-16] MEDS ORDERED: Metoclopramide 10 MG/2 ML SDV IVPUSH ONE (13:16)
[2020-07-16] MEDS ORDERED: fentaNYL 100 MCG/2 ML SDV IVPUSH ONE (13:16)
--- NOTE | 2020-07-16 13:16 | EDM.PDOC ---
ED HPI GENERAL MEDICAL PROBLEM - General Chief Complaint: Trauma Stated Complaint: [facility] Time Seen by Provider: 07/16/20 13:11 Source of Information: Reports: Patient, EMS History Limitations: Reports: Other (Splinting respirations) - History of Present Illness INITIAL COMMENTS - FREE TEXT/NARRATIVE: 74-year-old female presents to the ED after falling down stairs at home. She believes her foot got caught on the carpet which propelled her forward and she fell down 7 or 8 carpeted stairs in her own home. Her was home but did not wish to witness the fall. She denies any injury to her head or neck. No loss of consciousness. She remembers everything that happened. She landed hard on the stairs on her left side primarily her left lateral thorax. She is complaining of severe pain with inspiration in her left thorax and pain in her left scapula shoulder area. Injury occurred approximately 30 minutes ago. 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 She denies any pain in her abdomen. She denies any pain in her lower extremities or her lower back. She has pain in her upper posterior lateral thorax in the distribution of the scapula. Onset: Today, Sudden Onset Date: 07/16/20 Onset Time: 12:40 Duration: Minutes:, Constant Location: Reports: Chest (Right lateral thoracic pain in the mid axillary and posterior axillary line. Splinting respirations.), Upper Extremity, Left (Pain left shoulder and upper back in the distribution of the scapula) Quality: Reports: Ache, Sharp (Sharp stabbing component to breathing deeply due to pleuritic left-sided chest wall pain from suspect fractured ribs.) Severity: Moderate (70 8 out of 10.) Improves with: Reports: Rest Worsens with: Reports: Other (Worse with movement or deep breathing.) Context: Reports: Trauma (Tripped and fell while walking down carpeted stairs at her home today. She fell hard on her left side. She believes her shoe got stuck on the carpet that caused her to fall.). Denies: Activity, Exercise, Lifting, Sick Contact Associated Symptoms: Reports: Chest Pain, Nausea/Vomiting (Mild nausea from the pain. No vomiting), Shortness of Breath (Since she fell today.), Weakness (Left upper extremity). Denies: Confusion, Cough (Severe left lateral chest wall pain), cough w sputum, Diaphoresis, Fever/Chills, Headaches, Loss of Appetite, Malaise, Rash, Seizure, Syncope Treatments HOSPITALITY ASSOCIATE: Reports: Other (see below) (None.) Left Chest Pain Score (Numeric/FACES): 10 - Related Data Allergies Allergy/AdvReac Type Severity Reaction Status Date / Time denosumab [From Prolia] Allergy Rash Verified 07/16/20 13:23 niacin Allergy Rash Verified 07/16/20 13:23 atorvastatin calcium AdvReac Muscle Verified 07/16/20 13:23 [From Lipitor] Aches rosuvastatin calcium AdvReac Muscle Verified 07/16/20 13:23 [From Crestor] Aches Niacin Allergy Flushing Uncoded 07/16/20 13:23 Home Meds: Home Meds ALPRAZolam [Xanax] 0.5 mg PO BID PRN 11/02/18 [History] Cholecalciferol (Vitamin D3) [Vitamin D] 5,000 unit PO DAILY 11/02/18 [History] Melatonin 5 mg PO BEDTIME PRN 11/02/18 [History] Pravastatin [Pravachol] 10 mg PO DAILY 11/02/18 [History] Rizatriptan Benzoate [Rizatriptan] 10 mg PO BID PRN 11/02/18 [History] polyethylene glycoL 3350 [Miralax] 1 packet PO DAILY PRN 11/02/18 [History] Acetaminophen/oxyCODONE [Percocet 325-5 MG] 1 - 2 tab PO Q4H PRN #60 tablet 11/06/18 [Rx] Aspirin [Ecotrin EC] 325 mg PO BID #84 tab.ec 11/06/18 [Rx] Cyclobenzaprine [Flexeril] 5 mg PO BID PRN #15 tablet 11/06/18 [Rx] Docusate Sodium [Colace] 100 mg PO BID cap 11/06/18 [Rx] Famotidine [Pepcid] 20 mg PO Q12H tablet 11/06/18 [Rx] Gabapentin [Neurontin] 300 mg PO BEDTIME #30 cap 11/06/18 [Rx] Sennosides [Senna] 8.6 mg PO BID PRN tablet 11/06/18 [Rx] bisacodyL [Dulcolax] 5 mg PO DAILY PRN tablet 11/06/18 [Rx] Past Medical History HEENT History: Reports: Hard of Hearing, Impaired Vision, Macular Degeneration, Sinusitis, Other (See Below) Other HEENT History: wears corrective lenses Cardiovascular History: Reports: High Cholesterol, Hypertension Other Cardiovascular History: hypercholesterolemia. 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 Did not try any other biphosphonate's.) Other Musculoskeletal History: Myalgia, Myositis Neurological History: Reports: Other (See Below) Other Neuro History: myalgia, lumbar stenosis with neurogenic claudication, spinal stenosis Psychiatric History: Reports: Anxiety, Depression, Panic Attack, Other (See Below) Other Psychiatric History: major depressive disorder, malaise, fatigue, psyciatric care, suicidal behavior Endocrine/Metabolic History: Reports: Hypothyroidism Oncologic (Cancer) History: Reports: Squamous Cell Carcinoma Dermatologic History: Reports: Other (See Below) Other Dermatologic History: SCC, Lipoma Excision - Infectious Disease History Infectious Disease History: Reports: None - Past Surgical History HEENT Surgical History: Reports: Cataract Surgery, LASIK, Oral Surgery, Other (See Below) Other HEENT Surgeries/Procedures: TMJ surgery Cardiovascular Surgical History: Reports: None GI Surgical History: Reports: Appendectomy, Cholecystectomy, Colonoscopy, EGD Female Surgical History: Reports: Hysterectomy, Oophorectomy Neurological Surgical History: Reports: Lumbar Spine Other Neurological Surgeries/Procedures: L4 & L5 Surgery Musculoskeletal Surgical History: Reports: Knee Replacement, Other (See Below) Other Musculoskeletal Surgeries/Procedures:: Left Total Knee Arthroplasty (May 2016) Oncologic Surgical History: Reports: Other (See Below) Other Oncologic Surgeries/Procedures: Lipoma excision Social & Family History - Family History Family Medical History: No Pertinent Family History - Caffeine Use Caffeine Use: Reports: Coffee - Living Situation & Occupation Living situation: Reports: , with Spouse Occupation: Retired Review of Systems - Review of Systems Review Of Systems: See Below Constitutional: Reports: No Symptoms Eyes: Reports: Glasses Ears: Reports: No Symptoms Nose: Reports: No Symptoms Mouth/Throat: Reports: No Symptoms Respiratory: Reports: Shortness of Breath (Splinting respirations due to severe pain in her left chest wall since she fell today. Pain is sharp and stabbing and pleuritic. O2 sats were low at 90% in the ED. She required oxygen supplementation at 2 L/min. This achieved O2 sats of 93 to 94%.) Cardiovascular: Reports: Lightheadedness (Occasional dizziness with standing too quickly.). Denies: Chest Pain, Edema, Irregular Heart Rate GI/Abdominal: Reports: Constipation (Some mild problems with constipation.) Genitourinary: Reports: Other (Urinary frequency.) Musculoskeletal: Reports: Neck Pain (Chronic cervical neck pain which she is currently receiving physiotherapy for. She has degenerative arthritis degenerative disc disease with mild left upper extremity radiculopathy.), Back Pain (Chronic low back pain with no radiculopathy.) Skin: Reports: Bruising (Bruises fairly easily.) Neurological: Reports: Paresthesia (Left upper extremity radiculopathy from her neck. Has confirmed nerve root irritation due to degenerative arthritis and disc disease in her cervical spine.), Weakness (Left upper extremity.). Denies: Trouble Speaking, Difficulty Walking Psychiatric: Reports: No Symptoms ED EXAM, GENERAL - Physical Exam Exam: See Below Exam Limited By: Other (Limited ability to speak much due to severe pain in left lateral thorax. She is splinting respirations and is mildly hypoxic on room air. Temperature is 36.3 degrees. Heart rate 74 and sinus respiratory is 18 with O2 sats of 90% on room air. Placed on oxygen at 2 to 3 L/min to maintain O2 sats g) General Appearance: Moderate Distress (Splinting respirations due to left thoracic pain. Complains of pain in her upper posterior shoulder as well.) Eye Exam: Bilateral Eye: Normal Inspection, PERRL Throat/Mouth: Normal Inspection, Normal Lips, Normal Oropharynx, Other (No injuries to the dentition or tongue.) Head: Atraumatic, Normocephalic Neck: Normal Inspection, Limited Range of Motion (She has limited extension and lateral rotation and lateral flexion of her cervical spine. Clinically no evidence of fracture.), Tender Lateral (She states no worse than normal on palpation.) Respiratory/Chest: Lungs Clear, Respiratory Distress (Mild to moderate respiratory distress due to splinting respirations and pain in the left), Decreased Breath Sounds (Breath sounds are mildly diminished to the left lung base.), Splinting ( thorax. Left side.), Other (I can palpate rib fractures mid axillary and posterior axillary line on the left side. Clinically has fractures of ribs 7 8 and 9. No subcutaneous emphysema appreciated. There is fullness however of the supraclavicular fossa suggesting subcutaneous air or possible pneumothorax.). No: Rales, Rhonchi, Wheezing Cardiovascular: Normal Peripheral Pulses, Regular Rate, Rhythm, No Edema, No Gallop, No Murmur, No Rub Peripheral Pulses: 2+: Carotid (L), Carotid (R), Posterior Tibial (L), Posterior Tibial (R), Dorsalis Pedis (L), Dorsalis Pedis (R) GI/Abdominal: Non-Tender, No Organomegaly, Pelvis Stable, Distended (Bowel sounds are slightly hyperactive. The abdomen is distended intubated to percuss ion throughout component with aerophagia.), Abnormal Bowel Sounds, Other (Abdominal wall is firm to palpation due to distention from air.) Back Exam: Other (Pain to palpation in the lower back but she states this is not new. Not able to assess range of motion due to injury to the left thorax.). No: CVA Tenderness (L), CVA Tenderness (R) Extremities: Other (No obvious deformities of any of the extremities. This includes the left. She has pain in the supraclavicular fossa and superior aspect of her's scapula on the left side. There is fullness of the left supraclavicular fossa combined with subcutaneous air .) Neurological: Alert (Not able to assess), Oriented, CN II-XII Intact, Normal Cognition. No: Normal Gait Psychiatric: Normal Affect, Other Skin Exam: Warm (Is in a good deal of pain.), Dry, Intact, Normal Color, No Rash #1 Interpretation EKG Date: 07/16/20 Time: 13:40 Rhythm: NSR Rate (Beats/Min): 70 [place]: Normal P-Wave: Present QRS: Other (Early R wave transition consider right ventricular hypertrophy versus septal hypertrophy pattern borderline criteria for left ventricular Jason with tall R waves in lead I.) ST-T: Normal QT: Normal EKG Interpretation Comments: Borderline ECG Course - Vital Signs Last Recorded V/S: Last Vital Signs Temp 36.3 C 07/16/20 13:05 Pulse 73 07/16/20 14:09 Resp 16 07/16/20 14:09 BP 165/93 H 07/16/20 14:09 Pulse Ox 97 07/16/20 14:09 - Orders/Labs/Meds Orders: Active Orders 24 hr Category Date Time Status EKG Documentation Completion [RC] STAT Care 07/16/20 13:27 Active Oxygen Therapy [RC] ASDIRECTED Care 07/16/20 13:27 Active Sodium Chloride 0.9% [Normal Saline] 1,000 ml Med 07/16/20 13:15 Active IV ASDIRECTED Medication Orders Acetaminophen (Acetaminophen 325 Mg Tab) 650 mg PO Q4H PRN PRN Reason: Pain (Mild 1-3)/fever Alprazolam (Alprazolam 0.5 Mg Tab) 0.5 mg PO BID PRN PRN Reason: Anxiety Bisacodyl (Bisacodyl 5 Mg Tab) 5 mg PO DAILY PRN PRN Reason: Constipation Cyclobenzaprine HCl (Cyclobenzaprine 10 Mg Tab) 5 mg PO BID PRN PRN Reason: Spasms Docusate Sodium (Docusate Sodium 100 Mg Cap) 100 mg PO BID GLORIA Famotidine (Famotidine 20 Mg Tab) 20 mg PO Q12H GLORIA Gabapentin (Gabapentin 300 Mg Cap) 300 mg PO BEDTIME GLORIA Hydralazine HCl (Hydralazine 20 Mg/Ml Sdv) 10 mg IVPUSH Q6H PRN PRN Reason: Hypertension Hydromorphone HCl (Hydromorphone 1 Mg/Ml Syringe) 1 mg IVPUSH Q3H PRN PRN Reason: Pain (severe 7-10) Sodium Chloride (Normal Saline) 1,000 mls @ 70 mls/hr IV ASDIRECTED [facility] Last Admin: 07/16/20 13:30 Dose: 150 mls/hr Documented by: CATA Ketorolac Tromethamine (Ketorolac 30 Mg/Ml Sdv) 30 mg IM Q6H PRN PRN Reason: Pain (moderate 4-6) Non-Formulary Medication (Cholecalciferol (Vitamin D3)) 5,000 unit PO DAILY [facility] Non-Formulary Medication (Melatonin [Melatonin]) 5 mg PO BEDTIME PRN PRN Reason: Insomnia Non-Formulary Medication (Rizatriptan Benzoate [Rizatriptan]) 10 mg PO BID PRN PRN Reason: Migraines Ondansetron HCl (Ondansetron 4 Mg/2 Ml Sdv) 4 mg IV Q4H PRN PRN Reason: Nausea/Vomiting Oxycodone HCl (Oxycodone Er 10 Mg Tab.Er) 10 mg PO Q12HR [facility] Polyethylene Glycol (Polyethylene Glycol 3350 Powder 17 Gm Packet) gm PO DAILY PRN PRN Reason: Constipation Pravastatin Sodium (Pravastatin 20 Mg Tab) 10 mg PO DAILY [facility] Senna (Sennosides 8.6 Mg Tab) 8.6 mg PO BID PRN PRN Reason: Constipation Labs: Laboratory Tests 07/16/20 07/16/20 07/16/20 Range/Units 13:15 13:15 13:15 WBC 7.23 (3.98-10.04) K/mm3 RBC 4.56 (3.98-5.22) M/mm3 Hgb 13.9 D (11.2-15.7) gm/dl Hct 43.4 (34.1-44.9) % MCV 95.2 H (79.4-94.8) fl MCH 30.5 (25.6-32.2) pg MCHC 32.0 L (32.2-35.5) g/dl RDW Std Deviation 44.3 (36.4-46.3) fL Plt Count 289 (182-369) K/mm3 MPV 10.4 (9.4-12.3) fl Neut % (Auto) 43.4 (34.0-71.1) % Lymph % (Auto) 43.3 (19.3-51.7) % Harlan % (Auto) 9.1 (4.7-12.5) % Eos % (Auto) 3.2 (0.7-5.8) Baso % (Auto) 0.4 (0.1-1.2) % Neut # (Auto) 3.14 (1.56-6.13) K/mm3 Lymph # (Auto) 3.13 (1.18-3.74) K/mm3 Harlan # (Auto) 0.66 H (0.24-0.36) K/mm3 Eos # (Auto) 0.23 (0.04-0.36) K/mm3 Baso # (Auto) 0.03 (0.01-0.08) K/mm3 PT 10.3 (9.7-12.0) SECONDS INR 0.96 APTT 22.5 (21.7-31.4) SECONDS Sodium 140 (136-145) mEq/L Potassium 3.8 (3.5-5.1) mEq/L Chloride 103 (98-107) mEq/L Carbon Dioxide 25 (21-32) mEq/L Anion Gap 15.8 H (5-15) BUN 22 H (7-18) mg/dL Creatinine 1.0 (0.55-1.02) mg/dL Est Cr Clr Drug Dosing 43.27 mL/min Estimated GFR (MDRD) 54 (>60) mL/min BUN/Creatinine Ratio 22.0 H (14-18) Glucose 105 (83-115) mg/dL Calcium 9.8 (8.5-10.1) mg/dL Magnesium 2.3 (1.8-2.4) mg/dl Total Bilirubin 0.3 (0.2-1.0) mg/dL AST 20 (15-37) U/L ALT 34 (14-59) U/L Alkaline Phosphatase 62 (46-116) U/L NT-Pro-B Natriuret Pep (0-125) pg/mL Total Protein 8.1 (6.4-8.2) g/dl Albumin 4.2 (3.4-5.0) g/dl Globulin 3.9 gm/dL Albumin/Globulin Ratio 1.1 (1-2) SARS-CoV-2 RNA (MARY KATE) (NEGATIVE) 07/16/20 07/16/20 Range/Units 13:15 14:44 WBC (3.98-10.04) K/mm3 RBC (3.98-5.22) M/mm3 Hgb (11.2-15.7) gm/dl Hct (34.1-44.9) % MCV (79.4-94.8) fl MCH (25.6-32.2) pg MCHC (32.2-35.5) g/dl RDW Std Deviation (36.4-46.3) fL Plt Count (182-369) K/mm3 MPV (9.4-12.3) fl Neut % (Auto) (34.0-71.1) % Lymph % (Auto) (19.3-51.7) % Harlan % (Auto) (4.7-12.5) % Eos % (Auto) (0.7-5.8) Baso % (Auto) (0.1-1.2) % Neut # (Auto) (1.56-6.13) K/mm3 Lymph # (Auto) (1.18-3.74) K/mm3 Harlan # (Auto) (0.24-0.36) K/mm3 Eos # (Auto) (0.04-0.36) K/mm3 Baso # (Auto) (0.01-0.08) K/mm3 PT (9.7-12.0) SECONDS INR APTT (21.7-31.4) SECONDS Sodium (136-145) mEq/L Potassium (3.5-5.1) mEq/L Chloride (98-107) mEq/L Carbon Dioxide (21-32) mEq/L Anion Gap (5-15) BUN (7-18) mg/dL Creatinine (0.55-1.02) mg/dL Est Cr Clr Drug Dosing mL/min Estimated GFR (MDRD) (>60) mL/min BUN/Creatinine Ratio (14-18) Glucose (83-115) mg/dL Calcium (8.5-10.1) mg/dL Magnesium (1.8-2.4) mg/dl Total Bilirubin (0.2-1.0) mg/dL AST (15-37) U/L ALT (14-59) U/L Alkaline Phosphatase (46-116) U/L NT-Pro-B Natriuret Pep 52 (0-125) pg/mL Total Protein (6.4-8.2) g/dl Albumin (3.4-5.0) g/dl Globulin gm/dL Albumin/Globulin Ratio (1-2) SARS-CoV-2 RNA (MARY KATE) Negative (NEGATIVE) Meds: Medications Generic Name Dose Route Start Last Admin Trade Name Freq PRN Reason Stop Dose Admin Acetaminophen 650 mg 07/16/20 16:00 Acetaminophen 325 Mg Tab PO Q4H PRN Pain (Mild 1-3)/fever Alprazolam 0.5 mg 07/16/20 15:58 Alprazolam 0.5 Mg Tab PO BID PRN Anxiety Bisacodyl 5 mg 07/16/20 15:58 Bisacodyl 5 Mg Tab PO DAILY PRN Constipation Cyclobenzaprine HCl 5 mg 07/16/20 15:58 Cyclobenzaprine 10 Mg Tab PO BID PRN Spasms Docusate Sodium 100 mg 07/16/20 21:00 Docusate Sodium 100 Mg Cap PO BID GLORIA Famotidine 20 mg 07/16/20 16:00 Famotidine 20 Mg Tab PO Q12H GLORIA Gabapentin 300 mg 07/16/20 21:00 Gabapentin 300 Mg Cap PO BEDTIME GLORIA Hydralazine HCl 10 mg 07/16/20 16:06 Hydralazine 20 Mg/Ml Sdv IVPUSH Q6H PRN Hypertension Hydromorphone HCl 1 mg 07/16/20 16:00 Hydromorphone 1 Mg/Ml Syringe IVPUSH Q3H PRN Pain (severe 7-10) Sodium Chloride 1,000 mls @ 70 mls/hr 07/16/20 13:15 07/16/20 13:30 Normal Saline IV 150 mls/hr ASDIRECTED [facility] Administration Ketorolac Tromethamine 30 mg 07/16/20 16:00 Ketorolac 30 Mg/Ml Sdv IM Q6H PRN Pain (moderate 4-6) Non-Formulary Medication 5,000 unit 07/17/20 09:00 Cholecalciferol (Vitamin D3) PO DAILY [facility] Non-Formulary Medication 5 mg 07/16/20 15:58 Melatonin [Melatonin] PO BEDTIME PRN Insomnia Non-Formulary Medication 10 mg 07/16/20 15:58 Rizatriptan Benzoate [Rizatriptan] PO BID PRN Migraines Ondansetron HCl 4 mg 07/16/20 16:00 Ondansetron 4 Mg/2 Ml Sdv IV Q4H PRN Nausea/Vomiting Oxycodone HCl 10 mg 07/16/20 21:00 Oxycodone Er 10 Mg Tab.Er PO Q12HR [facility] Polyethylene Glycol gm 07/16/20 15:58 Polyethylene Glycol 3350 Powder 17 Gm Packet PO DAILY PRN Constipation Pravastatin Sodium 10 mg 07/17/20 09:00 Pravastatin 20 Mg Tab PO DAILY GLORIA Senna 8.6 mg 07/16/20 15:58 Sennosides 8.6 Mg Tab PO BID PRN Constipation Discontinued Medications Generic Name Dose Route Start Last Admin Trade Name Mk PRN Reason Stop Dose Admin Aspirin 325 mg 07/16/20 21:00 Aspirin 325 Mg Tab.Ec PO BID GLORIA Fentanyl 50 mcg 07/16/20 13:16 07/16/20 13:25 Fentanyl 100 Mcg/2 Ml Sdv IVPUSH 07/16/20 13:17 50 mcg ONETIME ONE Administration Hydromorphone HCl 0.5 mg 07/16/20 14:17 07/16/20 14:22 Hydromorphone 0.5 Mg/0.5 Ml Syringe IVPUSH 07/16/20 14:18 0.5 mg ONETIME ONE Administration Hydromorphone HCl 0.5 mg 07/16/20 15:10 07/16/20 15:28 Hydromorphone 0.5 Mg/0.5 Ml Syringe IVPUSH 07/16/20 15:11 0.5 mg ONETIME ONE Administration Metoclopramide HCl 7.5 mg 07/16/20 13:16 07/16/20 13:23 Metoclopramide 10 Mg/2 Ml Sdv IVPUSH 07/16/20 13:17 7.5 mg ONETIME ONE Administration - Radiology Interpretation Free Text/Narrative:: 74-year-old female presents to the ED per [facility]. She got tripped up and fell down carpeted stairs at her home shortly after noon today. She landed hard on her left chest wall. She presents with splinting respirations and is hypoxic on room air. She required oxygen supplementation at 2 to 3 L/min to maintain O2 sats of 94 to 96%. She is complaining of pain in the supraclavicular fossa on the left side and left shoulder. Pain over the superior aspect of the scapula. No obvious deformity of the left upper extremity appreciate on exam. Right upper extremity is also within normal limits. She is quite thin. I can palpate fractures in ribs 7 8 and 9 I believe clinically. No obvious subcutaneous emphysema at these level. Crepitus felt on palpation. Patient does have fullness of the left supraclavicular fossa suggesting subcutaneous air. No injuries to the lower extremities appreciated. Patient does have mild restriction of cervical range of motion due to the chronic pain. She is known to have degenerative disc disease and arthritis in her cervical spine with left upper extremity radiculopathy. She just came back home this morning from physical therapy for her neck. Plan establish an IV. Fentanyl 50 mcg IV with Reglan 7.5 mg IV. She will have left humerus x-rays and CT of her chest without IV contrast. - Re-Assessments/Exams Free Text/Narrative Re-Assessment/Exam: 07/16/20 14:18 x-rays of the left humerus do not reveal any fractures in the humerus the scapula or the clavicle. Acromioclavicular joint is normal as well. CT of the chest without contrast performed. It does reveal multiple rib fractures I believe anterior 3rd, 4th ,fifth and sixth ribs. There were also fractures noted within the posterior ninth and 10th ribs. 2 minimal compression deformities are seen within the upper thoracic spine which are nonspecific regarding and to daily. To mild compression deformities are also noted within the mid thoracic spine which are nonspecific regarding age. Visualized upper abdominal structures show a large cyst within the right kidney. Previous cholecystectomy appreciated. There is no significant subcutaneous air and no pneumothorax. There is mild bilateral atelectasis at lung bases. Slight parenchymal density is noted within the upper right lung. No pleural effusions are seen. Patient is having increased pain since coming back from CT suite. Fentanyl would have worn off over 40 minutes. We will give Dilaudid 0.5 mg IV for pain relief. Patient's O2 sats are 94 to 97% on 2 L/min. 07/16/20 14:35 I have discussed the findings of CT with the patient and her . At this point time she is oxygen dependent at 2 L/min due to splinting respirations. She was advised that hospitalization is in order as she is only going to get worse over the next 48 hours. She requires supplemental oxygen. She is a never smoker. Labs are pending. Covid screen to be done. 07/16/20 14:40: White count is normal at 7.23. Differential shows 43.4% neutrophils and 43.3% lymphocytes which are mildly elevated. Hemoglobin is 13.9 with hematocrit of 43.4. MCV slightly elevated at 95.2. Platelet count is normal at 289,000. PT is 10.3 with an INR of 0.96. PTT is 22.5. Sodium is 140. Potassium is 3.8. Chloride 103 with a bicarb of 25. Anion gap is mildly elevated at 15.8. BUN is 22 with a creatinine of 1.0. BUN/creatinine ratio is mildly elevated at 22.0 suggesting mild volume depletion. Glucose is 105. Calcium is 9.8. Magnesium is 2.3. Liver function is normal. BNP is 52. Total protein is 8.1 with an albumin fraction of 4.2. 07/16/20 15:10: Patient is requesting further analgesia due to pain. She will have Dilaudid 0.5 mg IV repeated. 07/16/20 15:15: I have spoken with on-call hospitalist Dr. Matthew Le and he is excepted admission to the med surgery floor due to multiple fractured ribs on the left side. Of note Covid screen is not yet back. Patient does not have any signs or symptoms of COVID-19 illness. 07/16/20 16:14 COVID-19 screen is negative. Departure - Departure Time of Disposition: 16:14 Disposition: Admitted As Inpatient 67 Condition: Fair Clinical Impression: Multiple rib fractures involving four or more ribs Fall as cause of accidental injury at home as place of occurrence Qualifiers: Encounter type: initial encounter Qualified Code(s): W19.XXXA - Unspecified fall, initial encounter - Discharge Information *PRESCRIPTION DRUG MONITORING PROGRAM REVIEWED*: No *COPY OF PRESCRIPTION DRUG MONITORING REPORT IN PATIENT MELINA: No Sepsis Event Note (ED) - Focused Exam Vital Signs: Vital Signs Temp Pulse Resp BP Pulse Ox 07/16/20 14:09 73 16 165/93 H 97 07/16/20 13:05 36.3 C 74 18 211/100 H 90 L - My Orders Last 24 Hours: My Active Orders 07/16/20 13:15 Sodium Chloride 0.9% [Normal Saline] 1,000 ml IV ASDIRECTED 07/16/20 13:27 EKG Documentation Completion [RC] STAT Oxygen Therapy [RC] ASDIRECTED - Assessment/Plan Last 24 Hours: My Active Orders 07/16/20 13:15 Sodium Chloride 0.9% [Normal Saline] 1,000 ml IV ASDIRECTED 07/16/20 13:27 EKG Documentation Completion [RC] STAT Oxygen Therapy [RC] ASDIRECTED
[2020-07-16] MEDS: Sodium Chloride 0.9% 1,000 ML IV SCH (13:30)
[2020-07-16] MEDS ORDERED: HYDROmorphone 0.5 MG/0.5 ML Syringe IVPUSH ONE ×2 (14:17→15:10)
--- NOTE | 2020-07-16 14:25 | CT ---
CT chest Technique: Multiple axial sections through the chest were obtained. Intravenous contrast was not utilized. Reconstructed coronal and sagittal images were obtained. Comparison: No prior chest CT is available, prior chest x-ray of 12/27/16. Findings: Increased density is seen within both lung bases most likely representing areas of atelectasis. Slight parenchymal density is noted within the upper right lung. This could represent a small area of pulmonary contusion if patient has no symptoms of pneumonia. Lungs otherwise are clear. No pleural effusions are seen. Visualized upper abdominal structures show a cyst within the right kidney. Previous cholecystectomy is noted. Heart shows no pericardial thickening. Aorta shows atherosclerotic change without aneurysm. No mediastinal adenopathy is seen. Bone window settings show fractures within the anterior third, fourth, fifth and sixth ribs. Fractures are noted within the within the posterior ninth and tenth ribs. Two minimal compression deformities are seen within the upper thoracic spine which are nonspecific regarding age. Two mild compression deformities are also noted within the mid thoracic spine which are nonspecific regarding age. Impression: 1. Slight parenchymal density within the right upper lung which could represent small areas of pulmonary contusion if patient has no symptoms of pneumonia. 2. Increased density within both lung bases most likely representing atelectasis. 3. Multiple left-sided rib fractures as described above which show no significant displacement. 4. Mild compression deformities within the spine which are nonspecific regarding age. Diagnostic code #3
--- NOTE | 2020-07-16 14:31 | CR ---
Left humerus: 2 views of the left humerus were obtained. Comparison: No previous study. No discrete fracture or other bony abnormality is appreciated. Impression: 1. Nothing acute is seen on 2 view left humerus study. Diagnostic code #1
[2020-07-16] MEDS ORDERED: ALPRAZolam 0.5 MG Tab PO PRN ×2 (15:58→19:50)
[2020-07-16] MEDS ORDERED: Polyethylene Glycol 3350 Powder 17 GM Packet PO PRN (15:58)
[2020-07-16] MEDS ORDERED: Sennosides 8.6 MG Tab PO PRN (15:58)
[2020-07-16] MEDS ORDERED: Non-Formulary Medication 1 Each (Rizatriptan Benzoate [Rizatriptan] 10 MG Tablet) PO PRN (15:58)
[2020-07-16] MEDS ORDERED: Non-Formulary Medication 1 Each (Melatonin [Melatonin] 5 MG Tablet) PO PRN (15:58)
[2020-07-16] MEDS ORDERED: Bisacodyl 5 MG Tab PO PRN (15:58)
--- NOTE | 2020-07-16 15:58 | PCM.HP.2 ---
H&P History of Present Illness - General Date of Service: 07/16/20 Admit Problem/Dx: Admission Diagnosis/Problem Admission Diagnosis/Problem Fall as cause of accidental injury in home as place of occurrence Source of Information: Patient - History of Present Illness Initial Comments - Free Text/Narative: Patient is a 74-year-old female who was at home and suffered a mechanical fall resulting in her falling down approximately 10 stairs. The patient denies any loss of consciousness and denies taking any blood thinners prior to her fall. The patient tripped causing her to fall forward and landed on the left side of her chest as well as the patient's left shoulder. At this time patient is complaining of acute left-sided chest pain as well as difficulty breathing. Patient did not have any prolonged downtime and EMS was summoned as patient was unable to get up without assistance. In the emergency department patient had CT scan of the chest did not show any evidence of pneumothorax, flail chest although the patient does have multiple left-sided anterior and posterior fractures. She is placed on 2 L nasal cannula secondary to suspected pulmonary contusion in the setting of left-sided chest trauma. Left Chest Pain Score (Numeric/FACES): 10 - Related Data Allergies/Adverse Reactions: Allergies Allergy/AdvReac Type Severity Reaction Status Date / Time denosumab [From Prolia] Allergy Rash Verified 07/16/20 13:23 niacin Allergy Rash Verified 07/16/20 13:23 atorvastatin calcium AdvReac Muscle Verified 07/16/20 13:23 [From Lipitor] Aches rosuvastatin calcium AdvReac Muscle Verified 07/16/20 13:23 [From Crestor] Aches Niacin Allergy Flushing Uncoded 07/16/20 13:23 Home Medications: Home Meds ALPRAZolam [Xanax] 0.5 mg PO BID PRN 11/02/18 [History] Cholecalciferol (Vitamin D3) [Vitamin D] 5,000 unit PO DAILY 11/02/18 [History] Melatonin 5 mg PO BEDTIME PRN 11/02/18 [History] Pravastatin [Pravachol] 10 mg PO DAILY 11/02/18 [History] Rizatriptan Benzoate [Rizatriptan] 10 mg PO BID PRN 11/02/18 [History] polyethylene glycoL 3350 [Miralax] 1 packet PO DAILY PRN 11/02/18 [History] Acetaminophen/oxyCODONE [Percocet 325-5 MG] 1 - 2 tab PO Q4H PRN #60 tablet 11/06/18 [Rx] Aspirin [Ecotrin EC] 325 mg PO BID #84 tab.ec 11/06/18 [Rx] Cyclobenzaprine [Flexeril] 5 mg PO BID PRN #15 tablet 11/06/18 [Rx] Docusate Sodium [Colace] 100 mg PO BID cap 11/06/18 [Rx] Famotidine [Pepcid] 20 mg PO Q12H tablet 11/06/18 [Rx] Gabapentin [Neurontin] 300 mg PO BEDTIME #30 cap 11/06/18 [Rx] Sennosides [Senna] 8.6 mg PO BID PRN tablet 11/06/18 [Rx] bisacodyL [Dulcolax] 5 mg PO DAILY PRN tablet 11/06/18 [Rx] Past Medical History HEENT History: Reports: Hard of Hearing, Impaired Vision, Macular Degeneration, Sinusitis, Other (See Below) Other HEENT History: wears corrective lenses Cardiovascular History: Reports: High Cholesterol, Hypertension Other Cardiovascular History: hypercholesterolemia. Hypertriglyceridemia Respiratory History: Reports: Asthma Other Respiratory History: Cough, Pneumonia Gastrointestinal History: Reports: Chronic Constipation, GERD, Other (See Below) Other Gastrointestinal History: Colitis, Ulcer Genitourinary History: Reports: Urinary Incontinence, Other (See Below) Other Genitourinary History: Hematuria [employer]ER History: Reports: Endometriosis, Musculoskeletal History: Reports: Back Pain, Chronic, Fracture, Osteoarthritis, Osteoporosis (She had significant side effects to Prolia. Did not try any other biphosphonate's.) Other Musculoskeletal History: Myalgia, Myositis Neurological History: Reports: Other (See Below) Other Neuro History: myalgia, lumbar stenosis with neurogenic claudication, spinal stenosis Psychiatric History: Reports: Anxiety, Depression, Panic Attack, Other (See Below) Other Psychiatric History: major depressive disorder, malaise, fatigue, psyciatric care, suicidal behavior Endocrine/Metabolic History: Reports: Hypothyroidism Oncologic (Cancer) History: Reports: Squamous Cell Carcinoma Dermatologic History: Reports: Other (See Below) Other Dermatologic History: SCC, Lipoma Excision - Infectious Disease History Infectious Disease History: Reports: Chicken Pox, Measles, Mumps - Past Surgical History HEENT Surgical History: Reports: Cataract Surgery, LASIK, Oral Surgery, Other (See Below) Other HEENT Surgeries/Procedures: TMJ surgery Cardiovascular Surgical History: Reports: None GI Surgical History: Reports: Appendectomy, Cholecystectomy, Colonoscopy, EGD Female Surgical History: Reports: Hysterectomy, Oophorectomy Neurological Surgical History: Reports: Lumbar Spine Other Neurological Surgeries/Procedures: L4 & L5 Surgery Musculoskeletal Surgical History: Reports: Knee Replacement, Other (See Below) Other Musculoskeletal Surgeries/Procedures:: Left Total Knee Arthroplasty (May 2016) Oncologic Surgical History: Reports: Other (See Below) Other Oncologic Surgeries/Procedures: Lipoma excision Social & Family History - Family History Family Medical History: No Pertinent Family History - Tobacco Use Tobacco Use Status *Q: Never Tobacco User Second Hand Smoke Exposure: No - Caffeine Use Caffeine Use: Reports: None - Recreational Drug Use Recreational Drug Use: No - Living Situation & Occupation Living situation: Reports: , with Spouse Occupation: Retired H&P Review of Systems - Review of Systems: Review Of Systems: See Below General: Reports: No Symptoms HEENT: Reports: No Symptoms Pulmonary: Reports: Shortness of Breath Cardiovascular: Reports: Chest Pain Gastrointestinal: Reports: No Symptoms Genitourinary: Reports: No Symptoms Musculoskeletal: Reports: No Symptoms Skin: Reports: No Symptoms Neurological: Reports: No Symptoms Exam - Exam Exam: See Below - Vital Signs Vital Signs: Last Vital Signs Temp 97.3 F 07/16/20 13:05 Pulse 73 07/16/20 14:09 Resp 16 07/16/20 14:09 BP 165/93 H 07/16/20 14:09 Pulse Ox 97 07/16/20 14:09 Weight: 145 lb - Exam General: Alert, Oriented HEENT: Conjunctiva Clear, Pupils Equal Neck: Supple, Trachea Midline Lungs: Clear to Auscultation, Other (no crepitus ) Cardiovascular: Regular Rate, Regular Rhythm GI/Abdominal Exam: Normal Bowel Sounds, Soft, Non-Tender, No Distention Back Exam: Normal Inspection Extremities: Normal Inspection, Normal Range of Motion, Non-Tender, No Pedal Edema. No: Joint Swelling, Increased Warmth Peripheral Pulses: 2+: Radial (L), Radial (R) Skin: Warm, Dry, Intact Neurological: Cranial Nerves Intact, Normal Speech Neuro Extensive - Mental Status: Alert, Oriented x3 Psychiatric: Alert, Normal Affect - Patient Data Lab Results Last 24 hrs: Laboratory Results - last 24 hr 07/16/20 07/16/20 07/16/20 Range/Units 13:15 13:15 13:15 WBC 7.23 (3.98-10.04) K/mm3 RBC 4.56 (3.98-5.22) M/mm3 Hgb 13.9 D (11.2-15.7) gm/dl Hct 43.4 (34.1-44.9) % MCV 95.2 H (79.4-94.8) fl MCH 30.5 (25.6-32.2) pg MCHC 32.0 L (32.2-35.5) g/dl RDW Std Deviation 44.3 (36.4-46.3) fL Plt Count 289 (182-369) K/mm3 MPV 10.4 (9.4-12.3) fl Neut % (Auto) 43.4 (34.0-71.1) % Lymph % (Auto) 43.3 (19.3-51.7) % [place] % (Auto) 9.1 (4.7-12.5) % Eos % (Auto) 3.2 (0.7-5.8) Baso % (Auto) 0.4 (0.1-1.2) % Neut # (Auto) 3.14 (1.56-6.13) K/mm3 Lymph # (Auto) 3.13 (1.18-3.74) K/mm3 [place] # (Auto) 0.66 H (0.24-0.36) K/mm3 Eos # (Auto) 0.23 (0.04-0.36) K/mm3 Baso # (Auto) 0.03 (0.01-0.08) K/mm3 PT 10.3 (9.7-12.0) SECONDS INR 0.96 APTT 22.5 (21.7-31.4) SECONDS Sodium 140 (136-145) mEq/L Potassium 3.8 (3.5-5.1) mEq/L Chloride 103 (98-107) mEq/L Carbon Dioxide 25 (21-32) mEq/L Anion Gap 15.8 H (5-15) BUN 22 H (7-18) mg/dL Creatinine 1.0 (0.55-1.02) mg/dL Est Cr Clr Drug Dosing 43.27 mL/min Estimated GFR (MDRD) 54 (>60) mL/min BUN/Creatinine Ratio 22.0 H (14-18) Glucose 105 (83-115) mg/dL Calcium 9.8 (8.5-10.1) mg/dL Magnesium 2.3 (1.8-2.4) mg/dl Total Bilirubin 0.3 (0.2-1.0) mg/dL AST 20 (15-37) U/L ALT 34 (14-59) U/L Alkaline Phosphatase 62 (46-116) U/L NT-Pro-B Natriuret Pep (0-125) pg/mL Total Protein 8.1 (6.4-8.2) g/dl Albumin 4.2 (3.4-5.0) g/dl Globulin 3.9 gm/dL Albumin/Globulin Ratio 1.1 (1-2) SARS-CoV-2 RNA (MARY KATE) (NEGATIVE) 07/16/20 07/16/20 Range/Units 13:15 14:44 WBC (3.98-10.04) K/mm3 RBC (3.98-5.22) M/mm3 Hgb (11.2-15.7) gm/dl Hct (34.1-44.9) % MCV (79.4-94.8) fl MCH (25.6-32.2) pg MCHC (32.2-35.5) g/dl RDW Std Deviation (36.4-46.3) fL Plt Count (182-369) K/mm3 MPV (9.4-12.3) fl Neut % (Auto) (34.0-71.1) % Lymph % (Auto) (19.3-51.7) % [place] % (Auto) (4.7-12.5) % Eos % (Auto) (0.7-5.8) Baso % (Auto) (0.1-1.2) % Neut # (Auto) (1.56-6.13) K/mm3 Lymph # (Auto) (1.18-3.74) K/mm3 [place] # (Auto) (0.24-0.36) K/mm3 Eos # (Auto) (0.04-0.36) K/mm3 Baso # (Auto) (0.01-0.08) K/mm3 PT (9.7-12.0) SECONDS INR APTT (21.7-31.4) SECONDS Sodium (136-145) mEq/L Potassium (3.5-5.1) mEq/L Chloride (98-107) mEq/L Carbon Dioxide (21-32) mEq/L Anion Gap (5-15) BUN (7-18) mg/dL Creatinine (0.55-1.02) mg/dL Est Cr Clr Drug Dosing mL/min Estimated GFR (MDRD) (>60) mL/min BUN/Creatinine Ratio (14-18) Glucose (83-115) mg/dL Calcium (8.5-10.1) mg/dL Magnesium (1.8-2.4) mg/dl Total Bilirubin (0.2-1.0) mg/dL AST (15-37) U/L ALT (14-59) U/L Alkaline Phosphatase (46-116) U/L NT-Pro-B Natriuret Pep 52 (0-125) pg/mL Total Protein (6.4-8.2) g/dl Albumin (3.4-5.0) g/dl Globulin gm/dL Albumin/Globulin Ratio (1-2) SARS-CoV-2 RNA (MARY KATE) Negative (NEGATIVE) Result Diagrams: 07/16/20 13:15 07/16/20 13:15 Sepsis Event Note - Evaluation Sepsis Screening Result: No Definite Risk - Focused Exam Vital Signs: Vital Signs Temp Pulse Resp BP Pulse Ox 07/16/20 14:09 73 16 165/93 H 97 07/16/20 13:05 97.3 F 74 18 211/100 H 90 L Problem List Initiated/Reviewed/Updated: Yes Orders Last 24hrs: Active Orders 24 hr Category Date Time Status Admission Status [Patient Status] [ADT] Routine ADT 07/16/20 15:22 Active EKG Documentation Completion [RC] STAT Care 07/16/20 13:27 Active Oxygen Therapy [RC] ASDIRECTED Care 07/16/20 13:27 Active Sodium Chloride 0.9% [Normal Saline] 1,000 ml Med 07/16/20 13:15 Active IV ASDIRECTED Medication Orders Sodium Chloride (Normal Saline) 1,000 mls @ 150 mls/hr IV ASDIRECTED [facility] Admin: 07/16/20 13:30 Dose: 150 mls/hr Documented by: CATA Assessment/Plan Comment:: Rib Fracture - Left Anterior rib fractures affecting the third fourth fifth and sixth ribs - Left Posterior fractures involving the ninth and 10th ribs -No Flail segments Acute hypoxic respiratory failure -secondary to pulmonary contusion, rib fractures Pulmonary Contusion -secondary to fall with multiple rib fractures Compression fracture -age indeterminate on CT Acute Pain secondary to trauma Mechanical fall -Resulting in acute pain, L anterior/posterior rib fractures -No LOC, No anticoagulation at time of fall HTN -Unaware of what medication she takes, started 1 month ago Plan: -Oxygen to maintain SPO2 greater than 88% OxyContin 10 mg p.o. every 12 hours -Dilaudid 1 mg every 3 hours as needed pain Toradol 15 mg p.o. every 6 hours as needed pain -Hydralazine as needed hypertension -PT/OT -Respiratory consultation, incentive spirometer, -Up with assist -SCDs -Resume home medications -Regular Diet
[2020-07-16] MEDS ORDERED: Ondansetron 4 MG/2 ML SDV IV PRN (16:00)
[2020-07-16] MEDS: HYDROmorphone 1 MG/ML Syringe IVPUSH PRN ×2 (17:10→21:30)
[2020-07-16] MEDS: Cyclobenzaprine 10 MG Tab PO PRN (18:32)
[2020-07-16] MEDS: Ketorolac 15 MG/ML SDV IM PRN (18:32)
[2020-07-16] MEDS ORDERED: Aspirin 325 MG Tab.EC PO SCH (21:00)
[2020-07-16] MEDS ORDERED: Gabapentin 300 MG Cap PO SCH (21:00)
[2020-07-16] MEDS: Pravastatin 20 MG Tab PO SCH (21:28)
[2020-07-16] MEDS: oxyCODONE ER 10 MG TAB.ER PO SCH (21:29)
[2020-07-16] MEDS: Famotidine 20 MG Tab PO SCH (21:30)
[2020-07-16] MEDS: Docusate Sodium 100 MG Cap PO SCH (21:30)
[2020-07-16] MEDS: Acetaminophen 325 MG Tab PO PRN (22:55)
[2020-07-17] MEDS: Sodium Chloride 0.9% 1,000 ML IV SCH ×2 (02:10→18:26)
[2020-07-17] MEDS: Cyclobenzaprine 10 MG Tab PO PRN ×2 (07:01→20:08)
[2020-07-17] MEDS: HYDROmorphone 1 MG/ML Syringe IVPUSH PRN ×5 (07:02→22:12)
[2020-07-17] MEDS: Famotidine 20 MG Tab PO SCH ×2 (08:30→20:10)
[2020-07-17] MEDS: oxyCODONE ER 10 MG TAB.ER PO SCH (08:30)
[2020-07-17] MEDS: Polyethylene Glycol 3350 Powder 17 GM Packet PO SCH (08:30)
[2020-07-17] MEDS: Docusate Sodium 100 MG Cap PO SCH ×2 (08:30→20:10)
[2020-07-17] MEDS ORDERED: Cholecalciferol (Vitamin D3) 5,000 UNIT Tab PO SCH (09:00)
[2020-07-17] MEDS ORDERED: Pravastatin 20 MG Tab PO SCH (09:00)
[2020-07-17] MEDS: Acetaminophen 325 MG Tab PO PRN ×3 (10:08→22:11)
--- NOTE | 2020-07-17 11:17 | PCM.PN ---
- General Info Date of Service: 07/17/20 Subjective Update: Overnight no events reported per patient nursing staff, patient remains on 2 L nasal cannula secondary to rib fractures/pulmonary contusion. At this time patient does have ongoing pain despite the use of OxyContin and as needed Dilaudid. Functional Status: Denies: Pain Controlled - Review of Systems General: Reports: No Symptoms HEENT: Reports: No Symptoms Pulmonary: Reports: No Symptoms Cardiovascular: Reports: No Symptoms Gastrointestinal: Reports: No Symptoms, Hematochezia Genitourinary: Reports: No Symptoms Musculoskeletal: Reports: Other (Rib pain ) Skin: Reports: No Symptoms Neurological: Reports: No Symptoms Psychiatric: Reports: No Symptoms - Patient Data Vitals - Most Recent: Last Vital Signs Temp 97.9 F 07/17/20 08:37 Pulse 73 07/17/20 08:37 Resp 18 07/17/20 08:37 BP 121/82 07/17/20 08:37 Pulse Ox 96 07/17/20 08:30 Weight - Most Recent: 150 lb 1.6 oz I&O - Last 24 Hours: Intake & Output 07/16/20 07/17/20 07/17/20 22:59 06:59 14:59 Intake Total 1042 Output Total 275 Balance 767 Lab Results Last 24 Hours: Laboratory Results - last 24 hr 07/16/20 07/16/20 07/16/20 Range/Units 13:15 13:15 13:15 WBC 7.23 (3.98-10.04) K/mm3 RBC 4.56 (3.98-5.22) M/mm3 Hgb 13.9 D (11.2-15.7) gm/dl Hct 43.4 (34.1-44.9) % MCV 95.2 H (79.4-94.8) fl MCH 30.5 (25.6-32.2) pg MCHC 32.0 L (32.2-35.5) g/dl RDW Std Deviation 44.3 (36.4-46.3) fL Plt Count 289 (182-369) K/mm3 MPV 10.4 (9.4-12.3) fl Neut % (Auto) 43.4 (34.0-71.1) % Lymph % (Auto) 43.3 (19.3-51.7) % [place] % (Auto) 9.1 (4.7-12.5) % Eos % (Auto) 3.2 (0.7-5.8) Baso % (Auto) 0.4 (0.1-1.2) % Neut # (Auto) 3.14 (1.56-6.13) K/mm3 Lymph # (Auto) 3.13 (1.18-3.74) K/mm3 [place] # (Auto) 0.66 H (0.24-0.36) K/mm3 Eos # (Auto) 0.23 (0.04-0.36) K/mm3 Baso # (Auto) 0.03 (0.01-0.08) K/mm3 PT 10.3 (9.7-12.0) SECONDS INR 0.96 APTT 22.5 (21.7-31.4) SECONDS Sodium 140 (136-145) mEq/L Potassium 3.8 (3.5-5.1) mEq/L Chloride 103 (98-107) mEq/L Carbon Dioxide 25 (21-32) mEq/L Anion Gap 15.8 H (5-15) BUN 22 H (7-18) mg/dL Creatinine 1.0 (0.55-1.02) mg/dL Est Cr Clr Drug Dosing 43.27 mL/min Estimated GFR (MDRD) 54 (>60) mL/min BUN/Creatinine Ratio 22.0 H (14-18) Glucose 105 (83-115) mg/dL Calcium 9.8 (8.5-10.1) mg/dL Magnesium 2.3 (1.8-2.4) mg/dl Total Bilirubin 0.3 (0.2-1.0) mg/dL AST 20 (15-37) U/L ALT 34 (14-59) U/L Alkaline Phosphatase 62 (46-116) U/L NT-Pro-B Natriuret Pep (0-125) pg/mL Total Protein 8.1 (6.4-8.2) g/dl Albumin 4.2 (3.4-5.0) g/dl Globulin 3.9 gm/dL Albumin/Globulin Ratio 1.1 (1-2) SARS-CoV-2 RNA (MARY KATE) (NEGATIVE) 07/16/20 07/16/20 Range/Units 13:15 14:44 WBC (3.98-10.04) K/mm3 RBC (3.98-5.22) M/mm3 Hgb (11.2-15.7) gm/dl Hct (34.1-44.9) % MCV (79.4-94.8) fl MCH (25.6-32.2) pg MCHC (32.2-35.5) g/dl RDW Std Deviation (36.4-46.3) fL Plt Count (182-369) K/mm3 MPV (9.4-12.3) fl Neut % (Auto) (34.0-71.1) % Lymph % (Auto) (19.3-51.7) % [place] % (Auto) (4.7-12.5) % Eos % (Auto) (0.7-5.8) Baso % (Auto) (0.1-1.2) % Neut # (Auto) (1.56-6.13) K/mm3 Lymph # (Auto) (1.18-3.74) K/mm3 [place] # (Auto) (0.24-0.36) K/mm3 Eos # (Auto) (0.04-0.36) K/mm3 Baso # (Auto) (0.01-0.08) K/mm3 PT (9.7-12.0) SECONDS INR APTT (21.7-31.4) SECONDS Sodium (136-145) mEq/L Potassium (3.5-5.1) mEq/L Chloride (98-107) mEq/L Carbon Dioxide (21-32) mEq/L Anion Gap (5-15) BUN (7-18) mg/dL Creatinine (0.55-1.02) mg/dL Est Cr Clr Drug Dosing mL/min Estimated GFR (MDRD) (>60) mL/min BUN/Creatinine Ratio (14-18) Glucose (83-115) mg/dL Calcium (8.5-10.1) mg/dL Magnesium (1.8-2.4) mg/dl Total Bilirubin (0.2-1.0) mg/dL AST (15-37) U/L ALT (14-59) U/L Alkaline Phosphatase (46-116) U/L NT-Pro-B Natriuret Pep 52 (0-125) pg/mL Total Protein (6.4-8.2) g/dl Albumin (3.4-5.0) g/dl Globulin gm/dL Albumin/Globulin Ratio (1-2) SARS-CoV-2 RNA (MARY KATE) Negative (NEGATIVE) Med Orders - Current: Current Medications Acetaminophen (Acetaminophen 325 Mg Tab) 650 mg PO Q4H PRN PRN Reason: Pain (Mild 1-3)/fever Last Admin: 07/17/20 10:08 Dose: 650 mg Documented by: Alprazolam (Alprazolam 0.5 Mg Tab) 0.5 mg PO DAILY PRN PRN Reason: Anxiety Last Admin: 07/16/20 22:57 Dose: 0.5 mg Documented by: Bisacodyl (Bisacodyl 5 Mg Tab) 5 mg PO DAILY PRN PRN Reason: Constipation Cyclobenzaprine HCl (Cyclobenzaprine 10 Mg Tab) 5 mg PO BID PRN PRN Reason: Spasms Last Admin: 07/17/20 07:01 Dose: 5 mg Documented by: Docusate Sodium (Docusate Sodium 100 Mg Cap) 100 mg PO BID [facility] Last Admin: 07/17/20 08:30 Dose: 100 mg Documented by: Famotidine (Famotidine 20 Mg Tab) 20 mg PO BID [facility] Last Admin: 07/17/20 08:30 Dose: 20 mg Documented by: Hydralazine HCl (Hydralazine 20 Mg/Ml Sdv) 10 mg IVPUSH Q6H PRN PRN Reason: Hypertension Hydromorphone HCl (Hydromorphone 1 Mg/Ml Syringe) 1 mg IVPUSH Q3H PRN PRN Reason: Pain (severe 7-10) Last Admin: 07/17/20 10:09 Dose: 1 mg Documented by: Sodium Chloride (Normal Saline) 1,000 mls @ 70 mls/hr IV ASDIRECTED [facility] Last Admin: 07/17/20 02:10 Dose: 70 mls/hr Documented by: Ketorolac Tromethamine (Ketorolac 15 Mg/Ml Sdv) 15 mg IM Q6H PRN PRN Reason: Pain (moderate 4-6) Last Admin: 07/16/20 18:32 Dose: 15 mg Documented by: Ondansetron HCl (Ondansetron 4 Mg/2 Ml Sdv) 4 mg IV Q4H PRN PRN Reason: Nausea/Vomiting Oxycodone HCl (Oxycodone Er 20 Mg Tab.Er) 20 mg PO Q12HR [facility] Polyethylene Glycol (Polyethylene Glycol 3350 Powder 17 Gm Packet) 17 gm PO DAILY [facility] Last Admin: 07/17/20 08:30 Dose: 17 gm Documented by: Pravastatin Sodium (Pravastatin 20 Mg Tab) 40 mg PO BEDTIME [facility] Last Admin: 07/16/20 21:28 Dose: 40 mg Documented by: Senna (Sennosides 8.6 Mg Tab) 8.6 mg PO BID PRN PRN Reason: Constipation Discontinued Medications Alprazolam (Alprazolam 0.5 Mg Tab) 0.5 mg PO BID PRN PRN Reason: Anxiety Aspirin (Aspirin 325 Mg Tab.Ec) 325 mg PO BID [facility] Cholecalciferol (Cholecalciferol (Vitamin D3) 5,000 Unit Tab) 5,000 unit PO DAILY [facility] Fentanyl (Fentanyl 100 Mcg/2 Ml Sdv) 50 mcg IVPUSH ONETIME ONE Stop: 07/16/20 13:17 Last Admin: 07/16/20 13:25 Dose: 50 mcg Documented by: Gabapentin (Gabapentin 300 Mg Cap) 300 mg PO BEDTIME [facility] Hydromorphone HCl (Hydromorphone 0.5 Mg/0.5 Ml Syringe) 0.5 mg IVPUSH ONETIME ONE Stop: 07/16/20 14:18 Last Admin: 07/16/20 14:22 Dose: 0.5 mg Documented by: Hydromorphone HCl (Hydromorphone 0.5 Mg/0.5 Ml Syringe) 0.5 mg IVPUSH ONETIME ONE Stop: 07/16/20 15:11 Last Admin: 07/16/20 15:28 Dose: 0.5 mg Documented by: Metoclopramide HCl (Metoclopramide 10 Mg/2 Ml Sdv) 7.5 mg IVPUSH ONETIME ONE Stop: 07/16/20 13:17 Last Admin: 07/16/20 13:23 Dose: 7.5 mg Documented by: Non-Formulary Medication (Melatonin [Melatonin]) 5 mg PO BEDTIME PRN PRN Reason: Insomnia Oxycodone HCl (Oxycodone Er 10 Mg Tab.Er) 10 mg PO Q12HR [facility] Last Admin: 07/17/20 08:30 Dose: 10 mg Documented by: Polyethylene Glycol (Polyethylene Glycol 3350 Powder 17 Gm Packet) 17 gm PO DAILY PRN PRN Reason: Constipation Pravastatin Sodium (Pravastatin 20 Mg Tab) 10 mg PO DAILY GLORIA - Exam Quality Assessment: Supplemental Oxygen (2L) General: Alert, Oriented HEENT: Pupils Equal Neck: Supple Lungs: Clear to Auscultation, Normal Respiratory Effort, Other (No SubQ air, no flail segments, symmetic chest rise w inspiration ). No: Crackles, Rales, Rhonchi Cardiovascular: Regular Rate, Regular Rhythm, No Murmurs GI/Abdominal Exam: Normal Bowel Sounds, Soft, Non-Tender Back Exam: Normal Inspection Extremities: Normal Inspection Peripheral Pulses: 2+: Radial (L), Radial (R) Skin: Warm, Dry, Intact Neurological: No New Focal Deficit Psy/Mental Status: Alert, Normal Affect - Patient Data Lab Results Last 24 hrs: Laboratory Results - last 24 hr 07/16/20 07/16/20 07/16/20 Range/Units 13:15 13:15 13:15 WBC 7.23 (3.98-10.04) K/mm3 RBC 4.56 (3.98-5.22) M/mm3 Hgb 13.9 D (11.2-15.7) gm/dl Hct 43.4 (34.1-44.9) % MCV 95.2 H (79.4-94.8) fl MCH 30.5 (25.6-32.2) pg MCHC 32.0 L (32.2-35.5) g/dl RDW Std Deviation 44.3 (36.4-46.3) fL Plt Count 289 (182-369) K/mm3 MPV 10.4 (9.4-12.3) fl Neut % (Auto) 43.4 (34.0-71.1) % Lymph % (Auto) 43.3 (19.3-51.7) % [place] % (Auto) 9.1 (4.7-12.5) % Eos % (Auto) 3.2 (0.7-5.8) Baso % (Auto) 0.4 (0.1-1.2) % Neut # (Auto) 3.14 (1.56-6.13) K/mm3 Lymph # (Auto) 3.13 (1.18-3.74) K/mm3 [place] # (Auto) 0.66 H (0.24-0.36) K/mm3 Eos # (Auto) 0.23 (0.04-0.36) K/mm3 Baso # (Auto) 0.03 (0.01-0.08) K/mm3 PT 10.3 (9.7-12.0) SECONDS INR 0.96 APTT 22.5 (21.7-31.4) SECONDS Sodium 140 (136-145) mEq/L Potassium 3.8 (3.5-5.1) mEq/L Chloride 103 (98-107) mEq/L Carbon Dioxide 25 (21-32) mEq/L Anion Gap 15.8 H (5-15) BUN 22 H (7-18) mg/dL Creatinine 1.0 (0.55-1.02) mg/dL Est Cr Clr Drug Dosing 43.27 mL/min Estimated GFR (MDRD) 54 (>60) mL/min BUN/Creatinine Ratio 22.0 H (14-18) Glucose 105 (83-115) mg/dL Calcium 9.8 (8.5-10.1) mg/dL Magnesium 2.3 (1.8-2.4) mg/dl Total Bilirubin 0.3 (0.2-1.0) mg/dL AST 20 (15-37) U/L ALT 34 (14-59) U/L Alkaline Phosphatase 62 (46-116) U/L NT-Pro-B Natriuret Pep (0-125) pg/mL Total Protein 8.1 (6.4-8.2) g/dl Albumin 4.2 (3.4-5.0) g/dl Globulin 3.9 gm/dL Albumin/Globulin Ratio 1.1 (1-2) SARS-CoV-2 RNA (MARY KATE) (NEGATIVE) 07/16/20 07/16/20 Range/Units 13:15 14:44 WBC (3.98-10.04) K/mm3 RBC (3.98-5.22) M/mm3 Hgb (11.2-15.7) gm/dl Hct (34.1-44.9) % MCV (79.4-94.8) fl MCH (25.6-32.2) pg MCHC (32.2-35.5) g/dl RDW Std Deviation (36.4-46.3) fL Plt Count (182-369) K/mm3 MPV (9.4-12.3) fl Neut % (Auto) (34.0-71.1) % Lymph % (Auto) (19.3-51.7) % [place] % (Auto) (4.7-12.5) % Eos % (Auto) (0.7-5.8) Baso % (Auto) (0.1-1.2) % Neut # (Auto) (1.56-6.13) K/mm3 Lymph # (Auto) (1.18-3.74) K/mm3 [place] # (Auto) (0.24-0.36) K/mm3 Eos # (Auto) (0.04-0.36) K/mm3 Baso # (Auto) (0.01-0.08) K/mm3 PT (9.7-12.0) SECONDS INR APTT (21.7-31.4) SECONDS Sodium (136-145) mEq/L Potassium (3.5-5.1) mEq/L Chloride (98-107) mEq/L Carbon Dioxide (21-32) mEq/L Anion Gap (5-15) BUN (7-18) mg/dL Creatinine (0.55-1.02) mg/dL Est Cr Clr Drug Dosing mL/min Estimated GFR (MDRD) (>60) mL/min BUN/Creatinine Ratio (14-18) Glucose (83-115) mg/dL Calcium (8.5-10.1) mg/dL Magnesium (1.8-2.4) mg/dl Total Bilirubin (0.2-1.0) mg/dL AST (15-37) U/L ALT (14-59) U/L Alkaline Phosphatase (46-116) U/L NT-Pro-B Natriuret Pep 52 (0-125) pg/mL Total Protein (6.4-8.2) g/dl Albumin (3.4-5.0) g/dl Globulin gm/dL Albumin/Globulin Ratio (1-2) SARS-CoV-2 RNA (MARY KATE) Negative (NEGATIVE) Result Diagrams: 07/16/20 13:15 07/16/20 13:15 Sepsis Event Note - Evaluation Sepsis Screening Result: No Definite Risk - Focused Exam Vital Signs: Vital Signs Temp Temp Pulse Resp BP Pulse Ox Pulse Ox 07/17/20 08:37 97.9 F 73 18 121/82 07/17/20 08:30 96 07/17/20 06:18 100 07/17/20 03:49 100 07/17/20 03:43 97.2 F 63 16 114/59 L 07/17/20 00:23 16 113/75 07/17/20 00:00 98.1 F - Problem List Review Problem List Initiated/Reviewed/Updated: Yes - My Orders Last 24 Hours: My Active Orders 07/16/20 15:58 Cyclobenzaprine [Flexeril] 5 mg PO BID PRN Sennosides [Senna] 8.6 mg PO BID PRN bisacodyL [Dulcolax] 5 mg PO DAILY PRN 07/16/20 16:00 Oxygen Therapy [RC] PRN Up With Assistance [RC] BID VTE/DVT Education [RC] DAILY Vital Signs [RC] Q4HR PT Evaluation and Treatment [CONS] Routine Respiratory Care Assess and Treatment [CONS] Routine Acetaminophen [TylenoL] 650 mg PO Q4H PRN HYDROmorphone [Dilaudid] 1 mg IVPUSH Q3H PRN Ketorolac [Toradol] 15 mg IM Q6H PRN Ondansetron [Zofran] 4 mg IV Q4H PRN Resuscitation Status Routine 07/16/20 16:01 Cardiac Monitoring [RC] CONTINUOUS Pulse Oximetry [RC] CONTINUOUS Sequential Compression Device [OM.PC] Per Unit Routine 07/16/20 16:03 Antiembolic Devices [RC] BID 07/16/20 16:05 Incentive Spirometry [RT Incentive Spirometry] [RC] Q1HWA 07/16/20 16:06 hydrALAZINE [Apresoline] 10 mg IVPUSH Q6H PRN 07/16/20 16:58 Patient Status [ADT] Routine 07/16/20 Dinner Regular Diet [DIET] 07/16/20 19:50 ALPRAZolam [Xanax] 0.5 mg PO DAILY PRN 07/16/20 21:00 Docusate Sodium [Colace] 100 mg PO BID Famotidine [Pepcid] 20 mg PO BID Pravastatin [Pravachol] 40 mg PO BEDTIME 07/17/20 09:00 polyethylene glycoL 3350 [MiraLAX] 17 gm PO DAILY 07/17/20 11:10 Consult to Physician [CONS] Routine 07/17/20 11:12 Notify Provider Consults [RC] ASDIRECTED 07/17/20 21:00 oxyCODONE ER [OxyCONTIN] 20 mg PO Q12HR - Assessment Assessment:: Rib Fracture - Left Anterior rib fractures affecting the third fourth fifth and sixth ribs - Left Posterior fractures involving the ninth and 10th ribs -No Flail segments Acute hypoxic respiratory failure -secondary to pulmonary contusion, rib fractures -On 2L Pulmonary Contusion -secondary to fall with multiple rib fractures Compression fracture -age indeterminate on CT Acute Pain secondary to trauma -Ongoing currently on Oxycontin 10mg BID as well as Dilaudid 1mg q3 hrs prn Mechanical fall -Resulting in acute pain, L anterior/posterior rib fractures -No LOC, No anticoagulation at time of fall HTN -Unaware of what medication she takes, started 1 month ago - Plan Plan:: Plan: -Consult Anesthesia/[employer] for possible intercostal nerve block given severe pain -Oxygen to maintain SPO2 greater than 88% Increase OxyContin to 20mg from 10 mg p.o. every 12 hours -Dilaudid 1 mg every 3 hours as needed pain Toradol 15 mg p.o. every 6 hours as needed pain -Hydralazine as needed hypertension -PT/OT -Respiratory consultation, incentive spirometer, -Up with assist -SCDs -Resume home medications -Regular Diet
[2020-07-17] MEDS ORDERED: oxyCODONE ER 10 MG TAB.ER PO ONE (11:28)
[2020-07-17] MEDS: oxyCODONE ER 20 MG TAB.ER PO SCH (20:10)
[2020-07-17] MEDS: Pravastatin 20 MG Tab PO SCH (20:11)
[2020-07-18] MEDS: HYDROmorphone 1 MG/ML Syringe IVPUSH PRN ×6 (01:21→19:18)
[2020-07-18] MEDS ORDERED: Non-Formulary Medication 1 Each (Hydrocodone/Acetaminophen 1 EACH Tablet) PO PRN (07:50)
[2020-07-18] MEDS: Famotidine 20 MG Tab PO SCH ×2 (08:54→20:06)
[2020-07-18] MEDS: Docusate Sodium 100 MG Cap PO SCH ×2 (08:54→22:21)
[2020-07-18] MEDS: buPROPion 150 MG Tab.ER PO SCH (08:54)
[2020-07-18] MEDS: oxyCODONE ER 20 MG TAB.ER PO SCH ×2 (08:54→20:06)
[2020-07-18] MEDS: Enoxaparin 40 MG/0.4 ML Syringe SUBCUT SCH (08:55)
[2020-07-18] MEDS: Polyethylene Glycol 3350 Powder 17 GM Packet PO SCH (08:55)
[2020-07-18] MEDS: Sodium Chloride 0.9% 1,000 ML IV SCH (10:33)
[2020-07-18] MEDS: Ketorolac 15 MG/ML SDV IM PRN (13:05)
--- NOTE | 2020-07-18 13:48 | PCM.PN ---
- General Info Date of Service: 07/18/20 Admission Dx/Problem (Free Text): Admission Diagnosis/Problem Admission Diagnosis/Problem Fall as cause of accidental injury in home as place of occurrence Subjective Update: Patient is a 74-year-old female who was at home and suffered a mechanical fall resulting in her falling down approximately 10 stairs. The patient denies any loss of consciousness and denies taking any blood thinners prior to her fall. Patient still complains of lateral pain from the ruptured ribs. Blood pressure was not well controlled initially. Blood pressure improved this afternoon. She is all 0.5 to 1 L Repeat chest x-ray showed parenchymal density within the right upper lung and both lung base. - Review of Systems General: Reports: Other (pain from jaws but patient states that she has been having the pain intermittently since 1979. No new changes) HEENT: Reports: No Symptoms Pulmonary: Reports: Other (Pain from ruptured ribs) Cardiovascular: Reports: No Symptoms Gastrointestinal: Reports: No Symptoms Genitourinary: Reports: No Symptoms Musculoskeletal: Reports: No Symptoms Skin: Reports: No Symptoms Neurological: Reports: No Symptoms Psychiatric: Reports: No Symptoms - Patient Data Vitals - Most Recent: Last Vital Signs Temp 36.3 C 07/18/20 11:53 Pulse 76 07/18/20 11:53 Resp 16 07/18/20 11:53 BP 129/76 07/18/20 11:53 Pulse Ox 92 L 07/18/20 11:53 Weight - Most Recent: 68.538 kg I&O - Last 24 Hours: Intake & Output 07/17/20 07/18/20 07/18/20 22:59 06:59 14:59 Intake Total 2050 1472 Output Total 50 650 Balance 2000 822 Lab Results Last 24 Hours: Laboratory Results - last 24 hr 07/18/20 Range/Units 08:13 WBC 12.36 H (3.98-10.04) K/mm3 RBC 3.85 L (3.98-5.22) M/mm3 Hgb 11.7 D (11.2-15.7) gm/dl Hct 37.6 (34.1-44.9) % MCV 97.7 H (79.4-94.8) fl MCH 30.4 (25.6-32.2) pg MCHC 31.1 L (32.2-35.5) g/dl RDW Std Deviation 45.8 (36.4-46.3) fL Plt Count 221 (182-369) K/mm3 MPV 10.5 (9.4-12.3) fl Neut % (Auto) 74.0 H (34.0-71.1) % Lymph % (Auto) 11.8 L (19.3-51.7) % [place] % (Auto) 12.7 H (4.7-12.5) % Eos % (Auto) 1.1 (0.7-5.8) Baso % (Auto) 0.2 (0.1-1.2) % Neut # (Auto) 9.14 H (1.56-6.13) K/mm3 Lymph # (Auto) 1.46 (1.18-3.74) K/mm3 [place] # (Auto) 1.57 H (0.24-0.36) K/mm3 Eos # (Auto) 0.14 (0.04-0.36) K/mm3 Baso # (Auto) 0.02 (0.01-0.08) K/mm3 Manual Slide Review Abnormal smear Med Orders - Current: Current Medications Acetaminophen (Acetaminophen 325 Mg Tab) 650 mg PO Q4H PRN PRN Reason: Pain (Mild 1-3)/fever Last Admin: 07/17/20 22:11 Dose: 650 mg Documented by: Alprazolam (Alprazolam 0.5 Mg Tab) 0.5 mg PO DAILY PRN PRN Reason: Anxiety Last Admin: 07/16/20 22:57 Dose: 0.5 mg Documented by: Bisacodyl (Bisacodyl 5 Mg Tab) 5 mg PO DAILY PRN PRN Reason: Constipation Bupropion HCl (Bupropion 150 Mg Tab.Er) 300 mg PO DAILY REPLACED BY [facility] Last Admin: 07/18/20 08:54 Dose: 300 mg Documented by: Cyclobenzaprine HCl (Cyclobenzaprine 10 Mg Tab) 5 mg PO BID PRN PRN Reason: Spasms Last Admin: 07/17/20 20:08 Dose: 5 mg Documented by: Docusate Sodium (Docusate Sodium 100 Mg Cap) 100 mg PO BID REPLACED BY [facility] Last Admin: 07/18/20 08:54 Dose: 100 mg Documented by: Enoxaparin Sodium (Enoxaparin 40 Mg/0.4 Ml Syringe) 40 mg SUBCUT Q24H REPLACED BY [facility] Last Admin: 07/18/20 08:55 Dose: 40 mg Documented by: Famotidine (Famotidine 20 Mg Tab) 20 mg PO BID REPLACED BY [facility] Last Admin: 07/18/20 08:54 Dose: 20 mg Documented by: Hydralazine HCl (Hydralazine 20 Mg/Ml Sdv) 10 mg IVPUSH Q6H PRN PRN Reason: Hypertension Hydromorphone HCl (Hydromorphone 1 Mg/Ml Syringe) 1 mg IVPUSH Q2H PRN PRN Reason: Pain Last Admin: 07/18/20 11:19 Dose: 1 mg Documented by: Sodium Chloride (Normal Saline) 1,000 mls @ 70 mls/hr IV ASDIRECTED REPLACED BY [facility] Last Admin: 07/18/20 10:33 Dose: 70 mls/hr Documented by: Ketorolac Tromethamine (Ketorolac 15 Mg/Ml Sdv) 15 mg IVPUSH Q6H PRN PRN Reason: Pain (moderate 4-6) Ondansetron HCl (Ondansetron 4 Mg/2 Ml Sdv) 4 mg IV Q4H PRN PRN Reason: Nausea/Vomiting Last Admin: 07/18/20 07:49 Dose: 4 mg Documented by: Oxycodone HCl (Oxycodone Er 20 Mg Tab.Er) 20 mg PO Q12HR REPLACED BY [facility] Last Admin: 07/18/20 08:54 Dose: 20 mg Documented by: Polyethylene Glycol (Polyethylene Glycol 3350 Powder 17 Gm Packet) 17 gm PO DAILY REPLACED BY [facility] Last Admin: 07/18/20 08:55 Dose: 17 gm Documented by: Pravastatin Sodium (Pravastatin 20 Mg Tab) 40 mg PO BEDTIME REPLACED BY [facility] Last Admin: 07/17/20 20:11 Dose: 40 mg Documented by: Senna (Sennosides 8.6 Mg Tab) 8.6 mg PO BID PRN PRN Reason: Constipation Discontinued Medications Alprazolam (Alprazolam 0.5 Mg Tab) 0.5 mg PO BID PRN PRN Reason: Anxiety Aspirin (Aspirin 325 Mg Tab.Ec) 325 mg PO BID REPLACED BY [facility] Cholecalciferol (Cholecalciferol (Vitamin D3) 5,000 Unit Tab) 5,000 unit PO DAILY REPLACED BY [facility] Fentanyl (Fentanyl 100 Mcg/2 Ml Sdv) 50 mcg IVPUSH ONETIME ONE Stop: 07/16/20 13:17 Last Admin: 07/16/20 13:25 Dose: 50 mcg Documented by: Gabapentin (Gabapentin 300 Mg Cap) 300 mg PO BEDTIME GLORIA Hydromorphone HCl (Hydromorphone 0.5 Mg/0.5 Ml Syringe) 0.5 mg IVPUSH ONETIME ONE Stop: 07/16/20 14:18 Last Admin: 07/16/20 14:22 Dose: 0.5 mg Documented by: Hydromorphone HCl (Hydromorphone 0.5 Mg/0.5 Ml Syringe) 0.5 mg IVPUSH ONETIME ONE Stop: 07/16/20 15:11 Last Admin: 07/16/20 15:28 Dose: 0.5 mg Documented by: Hydromorphone HCl (Hydromorphone 1 Mg/Ml Syringe) 1 mg IVPUSH Q3H PRN PRN Reason: Pain (severe 7-10) Last Admin: 07/18/20 08:55 Dose: 1 mg Documented by: Ketorolac Tromethamine (Ketorolac 15 Mg/Ml Sdv) 15 mg IM Q6H PRN PRN Reason: Pain (moderate 4-6) Last Admin: 07/18/20 13:05 Dose: 15 mg Documented by: Metoclopramide HCl (Metoclopramide 10 Mg/2 Ml Sdv) 7.5 mg IVPUSH ONETIME ONE Stop: 07/16/20 13:17 Last Admin: 07/16/20 13:23 Dose: 7.5 mg Documented by: Non-Formulary Medication (Melatonin [Melatonin]) 5 mg PO BEDTIME PRN PRN Reason: Insomnia Non-Formulary Medication (Hydrocodone/Acetaminophen) 1 tab PO Q6H PRN PRN Reason: Pain Oxycodone HCl (Oxycodone Er 10 Mg Tab.Er) 10 mg PO Q12HR REPLACED BY [facility] Last Admin: 07/17/20 08:30 Dose: 10 mg Documented by: Oxycodone HCl (Oxycodone Er 10 Mg Tab.Er) 10 mg PO ONETIME ONE Stop: 07/17/20 11:29 Last Admin: 07/17/20 13:13 Dose: 10 mg Documented by: Polyethylene Glycol (Polyethylene Glycol 3350 Powder 17 Gm Packet) 17 gm PO DAILY PRN PRN Reason: Constipation Pravastatin Sodium (Pravastatin 20 Mg Tab) 10 mg PO DAILY GLORIA - Exam Physical Findings Comments:: General: Alert, Oriented HEENT: Conjunctiva Clear, Pupils Equal. no tenderness from temporal areas. Neck: Supple, Trachea Midline Lungs: Clear to Auscultation, Other (no crepitus ). moderate tenderness over right sided chest (fractured ribs) Cardiovascular: Regular Rate, Regular Rhythm GI/Abdominal Exam: Normal Bowel Sounds, Soft, Non-Tender, No Distention Back Exam: Normal Inspection Extremities: Normal Inspection, Normal Range of Motion, Non-Tender, No Pedal Edema. No: Joint Swelling, Increased Warmth Peripheral Pulses: 2+: Radial (L), Radial (R) Skin: Warm, Dry, Intact Neurological: Cranial Nerves Intact, Normal Speech Neuro Extensive - Mental Status: Alert, Oriented x3 Psychiatric: Alert, Normal Affect - Patient Data Lab Results Last 24 hrs: Laboratory Results - last 24 hr 07/18/20 Range/Units 08:13 WBC 12.36 H (3.98-10.04) K/mm3 RBC 3.85 L (3.98-5.22) M/mm3 Hgb 11.7 D (11.2-15.7) gm/dl Hct 37.6 (34.1-44.9) % MCV 97.7 H (79.4-94.8) fl MCH 30.4 (25.6-32.2) pg MCHC 31.1 L (32.2-35.5) g/dl RDW Std Deviation 45.8 (36.4-46.3) fL Plt Count 221 (182-369) K/mm3 MPV 10.5 (9.4-12.3) fl Neut % (Auto) 74.0 H (34.0-71.1) % Lymph % (Auto) 11.8 L (19.3-51.7) % [place] % (Auto) 12.7 H (4.7-12.5) % Eos % (Auto) 1.1 (0.7-5.8) Baso % (Auto) 0.2 (0.1-1.2) % Neut # (Auto) 9.14 H (1.56-6.13) K/mm3 Lymph # (Auto) 1.46 (1.18-3.74) K/mm3 [place] # (Auto) 1.57 H (0.24-0.36) K/mm3 Eos # (Auto) 0.14 (0.04-0.36) K/mm3 Baso # (Auto) 0.02 (0.01-0.08) K/mm3 Manual Slide Review Abnormal smear Result Diagrams: 07/18/20 08:13 07/16/20 13:15 Sepsis Event Note - Evaluation Sepsis Screening Result: No Definite Risk - Focused Exam Vital Signs: Vital Signs Temp Pulse Resp BP Pulse Ox Pulse Ox 07/18/20 11:53 36.3 C 76 16 129/76 92 L 07/18/20 08:15 95 07/18/20 07:56 97 07/18/20 07:23 36.4 C 93 16 181/87 H 94 L 07/18/20 04:33 36.4 C 82 16 175/81 H 99 - Problem List Review Problem List Initiated/Reviewed/Updated: Yes - My Orders Last 24 Hours: My Active Orders 07/18/20 07:44 Chest 1V Frontal [CR] Routine 07/18/20 09:00 Enoxaparin [Lovenox] 40 mg SUBCUT Q24H buPROPion [Wellbutrin XL] 300 mg PO DAILY 07/18/20 09:29 HYDROmorphone [Dilaudid] 1 mg IVPUSH Q2H PRN 07/18/20 13:20 Ketorolac [Toradol] 15 mg IVPUSH Q6H PRN 07/19/20 05:00 CBC WITH AUTO DIFF [HEME] DAILY COMPREHENSIVE METABOLIC PN,CMP [CHEM] DAILY 07/19/20 07:45 CBC WITH AUTO DIFF [HEME] DAILY 07/20/20 05:00 CBC WITH AUTO DIFF [HEME] DAILY COMPREHENSIVE METABOLIC PN,CMP [CHEM] DAILY 07/20/20 07:45 CBC WITH AUTO DIFF [HEME] DAILY 07/21/20 05:00 CBC WITH AUTO DIFF [HEME] DAILY COMPREHENSIVE METABOLIC PN,CMP [CHEM] DAILY 07/21/20 07:45 CBC WITH AUTO DIFF [HEME] DAILY 07/22/20 05:00 CBC WITH AUTO DIFF [HEME] DAILY COMPREHENSIVE METABOLIC PN,CMP [CHEM] DAILY 07/22/20 07:45 CBC WITH AUTO DIFF [HEME] DAILY 07/23/20 05:00 CBC WITH AUTO DIFF [HEME] DAILY COMPREHENSIVE METABOLIC PN,CMP [CHEM] DAILY 07/23/20 07:45 CBC WITH AUTO DIFF [HEME] DAILY - Assessment Assessment:: Patient is a 74-year-old female who was at home and suffered a mechanical fall resulting in her falling down approximately 10 stairs. The patient denies any loss of consciousness and denies taking any blood thinners prior to her fall. Assessment: Rib Fracture -Left Anterior rib fractures affecting the third fourth fifth and sixth ribs -Left Posterior fractures involving the ninth and 10th ribs -No Flail segments Acute hypoxic respiratory failure -secondary to pulmonary contusion, rib fractures -On 2L, improving to 0.5 to 1 L today Pulmonary Contusion -secondary to fall with multiple rib fractures -Repeat chest x-ray today -no change Compression fracture -age indeterminate on CT Acute Pain secondary to trauma -Ongoing currently on Oxycontin 10mg BID as well as Dilaudid 1mg q2 hrs prn Mechanical fall -Resulting in acute pain, L anterior/posterior rib fractures -No LOC, No anticoagulation at time of fall HTN -Unaware of what medication she takes, started 1 month ago -Hydralazine Plan: -Consult Anesthesia/[employer] for possible intercostal nerve block given severe pain (not available) -Oxygen to maintain SPO2 greater than 88% Increase OxyContin to 20mg from 10 mg p.o. every 12 hours -Increased Dilaudid 1 mg to every 2 hours as needed pain Toradol 15 mg p.o. every 6 hours as needed pain -Hydralazine as needed hypertension -PT/OT -Respiratory consultation, incentive spirometer, -Up with assist -SCDded Jarquinx -Resume home medications -Regular Diet Deposition: PT OT
[2020-07-18] MEDS: Acetaminophen 325 MG Tab PO PRN (16:33)
[2020-07-18] MEDS: Pravastatin 20 MG Tab PO SCH (20:06)
[2020-07-18] MEDS: Ketorolac 15 MG/ML SDV IVPUSH PRN (22:21)
[2020-07-19] MEDS: Sodium Chloride 0.9% 1,000 ML IV SCH ×2 (01:23→16:43)
[2020-07-19] MEDS: Acetaminophen 325 MG Tab PO PRN ×2 (01:27→16:42)
[2020-07-19] MEDS: Ketorolac 15 MG/ML SDV IVPUSH PRN ×2 (04:24→22:09)
[2020-07-19] MEDS: HYDROmorphone 1 MG/ML Syringe IVPUSH PRN ×3 (07:00→16:43)
[2020-07-19] MEDS ORDERED: Lactulose Soln 10 GM/15 ML 30 ML UD Cup PO PRN (07:30)
[2020-07-19] MEDS: oxyCODONE ER 20 MG TAB.ER PO SCH ×2 (08:40→20:51)
[2020-07-19] MEDS: buPROPion 150 MG Tab.ER PO SCH (08:40)
[2020-07-19] MEDS: Famotidine 20 MG Tab PO SCH ×2 (08:40→20:26)
[2020-07-19] MEDS: Enoxaparin 40 MG/0.4 ML Syringe SUBCUT SCH (08:41)
[2020-07-19] MEDS: Polyethylene Glycol 3350 Powder 17 GM Packet PO SCH (08:41)
[2020-07-19] MEDS: Docusate Sodium 100 MG Cap PO SCH ×2 (08:41→20:51)
--- NOTE | 2020-07-19 09:08 | CR ---
Chest: Frontal view of the chest was obtained. Comparison: Prior chest CT study of 07/16/20 and chest x-ray of 12/29/16. Focal area of increased density is noted within the right upper lung which appears to be an interval change from previous exam. Slight atelectasis is noted within both lung bases. Lungs otherwise are clear without acute parenchymal change. Heart size and mediastinum are stable. Prior chest CT showed left-sided rib fractures, these cannot be identified on this chest x-ray. Impression: 1. Increased density within the right upper chest. This may represent areas of atelectasis versus acute pneumonia if patient has infectious symptoms. 2. Other findings as noted above which are stable from prior chest CT. Diagnostic code #3 I agree with preliminary report from [facility] finalized on 07/18/20, 2:09 PM CDT, code 1
[2020-07-19] MEDS: Cyclobenzaprine 10 MG Tab PO PRN (09:39)
[2020-07-19] MEDS: Carvedilol 3.125 MG Tab PO SCH ×2 (09:39→20:27)
[2020-07-19] MEDS ORDERED: fentaNYL 12 MCG/HR Transdermal Patch TRDERM SCH (11:00)
--- NOTE | 2020-07-19 14:27 | PCM.PN ---
- General Info Date of Service: 07/19/20 Admission Dx/Problem (Free Text): Admission Diagnosis/Problem Admission Diagnosis/Problem Fall as cause of accidental injury in home as place of occurrence Subjective Update: Patient is a 74-year-old female who was at home and suffered a mechanical fall resulting in her falling down approximately 10 stairs. The patient denies any loss of consciousness and denies taking any blood thinners prior to her fall. Patient still complains of lateral pain from the ruptured ribs. No difficulty breathing. Blood pressure is not well controlled initially. She is now on 1 L Repeat chest x-ray on July 18 (yesterday) showed increased density within the right upper chest. This may represent areas of atelectasis versus acute pneumonia if patient has infectious symptoms - Review of Systems Systems Review Comment:: General: Reports: Other (pain from jaws but patient states that she has been having the pain intermittently since 1979 (significantly improved). No new changes) HEENT: Reports: No Symptoms Pulmonary: Reports: Other (Pain from ruptured ribs) Cardiovascular: Reports: No Symptoms Gastrointestinal: Reports: No Symptoms Genitourinary: Reports: No Symptoms Musculoskeletal: Reports: No Symptoms Skin: Reports: No Symptoms Neurological: Reports: No Symptoms Psychiatric: Reports: No Symptoms - Patient Data Vitals - Most Recent: Last Vital Signs Temp 37.1 C 07/19/20 11:22 Pulse 81 07/19/20 11:22 Resp 16 07/19/20 11:22 BP 168/70 H 07/19/20 11:22 Pulse Ox 96 07/19/20 11:22 Weight - Most Recent: 68.901 kg I&O - Last 24 Hours: Intake & Output 07/18/20 07/19/20 07/19/20 22:59 06:59 14:59 Intake Total 1000 2000 Output Total 450 700 Balance 550 1301 Lab Results Last 24 Hours: Laboratory Results - last 24 hr 07/19/20 07/19/20 Range/Units 05:45 05:45 WBC 11.04 H (3.98-10.04) K/mm3 RBC 3.53 L (3.98-5.22) M/mm3 Hgb 10.8 L (11.2-15.7) gm/dl Hct 34.6 (34.1-44.9) % MCV 98.0 H (79.4-94.8) fl MCH 30.6 (25.6-32.2) pg MCHC 31.2 L (32.2-35.5) g/dl RDW Std Deviation 44.3 (36.4-46.3) fL Plt Count 210 (182-369) K/mm3 MPV 10.0 (9.4-12.3) fl Neut % (Auto) 71.6 H (34.0-71.1) % Lymph % (Auto) 12.6 L (19.3-51.7) % [place] % (Auto) 14.0 H (4.7-12.5) % Eos % (Auto) 1.3 (0.7-5.8) Baso % (Auto) 0.2 (0.1-1.2) % Neut # (Auto) 7.91 H (1.56-6.13) K/mm3 Lymph # (Auto) 1.39 (1.18-3.74) K/mm3 [place] # (Auto) 1.55 H (0.24-0.36) K/mm3 Eos # (Auto) 0.14 (0.04-0.36) K/mm3 Baso # (Auto) 0.02 (0.01-0.08) K/mm3 Manual Slide Review Abnormal smear Sodium 140 (136-145) mEq/L Potassium 4.0 (3.5-5.1) mEq/L Chloride 104 (98-107) mEq/L Carbon Dioxide 28 (21-32) mEq/L Anion Gap 12.0 (5-15) BUN 10 (7-18) mg/dL Creatinine 0.7 (0.55-1.02) mg/dL Est Cr Clr Drug Dosing 61.81 mL/min Estimated GFR (MDRD) > 60 (>60) mL/min BUN/Creatinine Ratio 14.3 (14-18) Glucose 105 (83-115) mg/dL Calcium 8.4 L (8.5-10.1) mg/dL Total Bilirubin 0.6 (0.2-1.0) mg/dL AST 101 H (15-37) U/L ALT 223 H (14-59) U/L Alkaline Phosphatase 93 (46-116) U/L Total Protein 6.4 (6.4-8.2) g/dl Albumin 2.9 L (3.4-5.0) g/dl Globulin 3.5 gm/dL Albumin/Globulin Ratio 0.8 L (1-2) Med Orders - Current: Current Medications Acetaminophen (Acetaminophen 325 Mg Tab) 650 mg PO Q4H PRN PRN Reason: Pain (Mild 1-3)/fever Last Admin: 07/19/20 01:27 Dose: 650 mg Documented by: Alprazolam (Alprazolam 0.5 Mg Tab) 0.5 mg PO DAILY PRN PRN Reason: Anxiety Last Admin: 07/16/20 22:57 Dose: 0.5 mg Documented by: Bisacodyl (Bisacodyl 5 Mg Tab) 5 mg PO DAILY PRN PRN Reason: Constipation Bupropion HCl (Bupropion 150 Mg Tab.Er) 300 mg PO DAILY [facility] Last Admin: 07/19/20 08:40 Dose: 300 mg Documented by: Carvedilol (Carvedilol 3.125 Mg Tab) 3.125 mg PO BID [facility] Last Admin: 07/19/20 09:39 Dose: 3.125 mg Documented by: Cyclobenzaprine HCl (Cyclobenzaprine 10 Mg Tab) 5 mg PO BID PRN PRN Reason: Spasms Last Admin: 07/19/20 09:39 Dose: 5 mg Documented by: Docusate Sodium (Docusate Sodium 100 Mg Cap) 100 mg PO BID [facility] Last Admin: 07/19/20 08:41 Dose: 100 mg Documented by: Enoxaparin Sodium (Enoxaparin 40 Mg/0.4 Ml Syringe) 40 mg SUBCUT Q24H [facility] Last Admin: 07/19/20 08:41 Dose: 40 mg Documented by: Famotidine (Famotidine 20 Mg Tab) 20 mg PO BID [facility] Last Admin: 07/19/20 08:40 Dose: 20 mg Documented by: Fentanyl (Fentanyl 12 Mcg/Hr Transdermal Patch) 12 mcg TRDERM Q72H [facility] Last Admin: 07/19/20 11:21 Dose: 12 mcg Documented by: Hydralazine HCl (Hydralazine 20 Mg/Ml Sdv) 10 mg IVPUSH Q6H PRN PRN Reason: Hypertension Hydromorphone HCl (Hydromorphone 1 Mg/Ml Syringe) 1 mg IVPUSH Q2H PRN PRN Reason: Pain Last Admin: 07/19/20 14:05 Dose: 1 mg Documented by: Sodium Chloride (Normal Saline) 1,000 mls @ 70 mls/hr IV ASDIRECTED [facility] Last Admin: 07/19/20 01:23 Dose: 70 mls/hr Documented by: Ketorolac Tromethamine (Ketorolac 15 Mg/Ml Sdv) 15 mg IVPUSH Q6H PRN PRN Reason: Pain (moderate 4-6) Last Admin: 07/19/20 04:24 Dose: 15 mg Documented by: Lactulose (Lactulose Soln 10 Gm/15 Ml 30 Ml Ud Cup) 20 gm PO DAILY PRN PRN Reason: Constipation Last Admin: 07/19/20 08:41 Dose: 20 gm Documented by: Miscellaneous Information (Remove Patch *Fentanyl*) 1 ea TRDERM Q72H [facility] Ondansetron HCl (Ondansetron 4 Mg/2 Ml Sdv) 4 mg IV Q4H PRN PRN Reason: Nausea/Vomiting Last Admin: 07/18/20 07:49 Dose: 4 mg Documented by: Oxycodone HCl (Oxycodone Er 20 Mg Tab.Er) 20 mg PO Q12HR [facility] Last Admin: 07/19/20 08:40 Dose: 20 mg Documented by: Polyethylene Glycol (Polyethylene Glycol 3350 Powder 17 Gm Packet) 17 gm PO DAILY [facility] Last Admin: 07/19/20 08:41 Dose: 17 gm Documented by: Pravastatin Sodium (Pravastatin 20 Mg Tab) 40 mg PO BEDTIME [facility] Last Admin: 07/18/20 20:06 Dose: 40 mg Documented by: Senna (Sennosides 8.6 Mg Tab) 8.6 mg PO BID PRN PRN Reason: Constipation Discontinued Medications Alprazolam (Alprazolam 0.5 Mg Tab) 0.5 mg PO BID PRN PRN Reason: Anxiety Aspirin (Aspirin 325 Mg Tab.Ec) 325 mg PO BID [facility] Cholecalciferol (Cholecalciferol (Vitamin D3) 5,000 Unit Tab) 5,000 unit PO DAILY [facility] Fentanyl (Fentanyl 100 Mcg/2 Ml Sdv) 50 mcg IVPUSH ONETIME ONE Stop: 07/16/20 13:17 Last Admin: 07/16/20 13:25 Dose: 50 mcg Documented by: Gabapentin (Gabapentin 300 Mg Cap) 300 mg PO BEDTIME [facility] Hydromorphone HCl (Hydromorphone 0.5 Mg/0.5 Ml Syringe) 0.5 mg IVPUSH ONETIME ONE Stop: 07/16/20 14:18 Last Admin: 07/16/20 14:22 Dose: 0.5 mg Documented by: Hydromorphone HCl (Hydromorphone 0.5 Mg/0.5 Ml Syringe) 0.5 mg IVPUSH ONETIME ONE Stop: 07/16/20 15:11 Last Admin: 07/16/20 15:28 Dose: 0.5 mg Documented by: Hydromorphone HCl (Hydromorphone 1 Mg/Ml Syringe) 1 mg IVPUSH Q3H PRN PRN Reason: Pain (severe 7-10) Last Admin: 07/18/20 08:55 Dose: 1 mg Documented by: Ketorolac Tromethamine (Ketorolac 15 Mg/Ml Sdv) 15 mg IM Q6H PRN PRN Reason: Pain (moderate 4-6) Last Admin: 07/18/20 13:05 Dose: 15 mg Documented by: Metoclopramide HCl (Metoclopramide 10 Mg/2 Ml Sdv) 7.5 mg IVPUSH ONETIME ONE Stop: 07/16/20 13:17 Last Admin: 07/16/20 13:23 Dose: 7.5 mg Documented by: Non-Formulary Medication (Melatonin [Melatonin]) 5 mg PO BEDTIME PRN PRN Reason: Insomnia Non-Formulary Medication (Hydrocodone/Acetaminophen) 1 tab PO Q6H PRN PRN Reason: Pain Oxycodone HCl (Oxycodone Er 10 Mg Tab.Er) 10 mg PO Q12HR [facility] Last Admin: 07/17/20 08:30 Dose: 10 mg Documented by: Oxycodone HCl (Oxycodone Er 10 Mg Tab.Er) 10 mg PO ONETIME ONE Stop: 07/17/20 11:29 Last Admin: 07/17/20 13:13 Dose: 10 mg Documented by: Polyethylene Glycol (Polyethylene Glycol 3350 Powder 17 Gm Packet) 17 gm PO DAILY PRN PRN Reason: Constipation Pravastatin Sodium (Pravastatin 20 Mg Tab) 10 mg PO DAILY [facility] - Exam Physical Findings Comments:: General: Alert, Oriented HEENT: Conjunctiva Clear, Pupils Equal. no tenderness from temporal areas. Neck: Supple, Trachea Midline Lungs: Clear to Auscultation, Other (no crepitus ). moderate tenderness over right sided chest (fractured ribs) Cardiovascular: Regular Rate, Regular Rhythm GI/Abdominal Exam: Normal Bowel Sounds, Soft, Non-Tender, No Distention Back Exam: Normal Inspection Extremities: Normal Inspection, Normal Range of Motion, Non-Tender, No Pedal Edema. No: Joint Swelling, Increased Warmth Peripheral Pulses: 2+: Radial (L), Radial (R) Skin: Warm, Dry, Intact Neurological: Cranial Nerves Intact, Normal Speech Neuro Extensive - Mental Status: Alert, Oriented x3 Psychiatric: Alert, Normal Affect - Patient Data Lab Results Last 24 hrs: Laboratory Results - last 24 hr 07/19/20 07/19/20 Range/Units 05:45 05:45 WBC 11.04 H (3.98-10.04) K/mm3 RBC 3.53 L (3.98-5.22) M/mm3 Hgb 10.8 L (11.2-15.7) gm/dl Hct 34.6 (34.1-44.9) % MCV 98.0 H (79.4-94.8) fl MCH 30.6 (25.6-32.2) pg MCHC 31.2 L (32.2-35.5) g/dl RDW Std Deviation 44.3 (36.4-46.3) fL Plt Count 210 (182-369) K/mm3 MPV 10.0 (9.4-12.3) fl Neut % (Auto) 71.6 H (34.0-71.1) % Lymph % (Auto) 12.6 L (19.3-51.7) % [place] % (Auto) 14.0 H (4.7-12.5) % Eos % (Auto) 1.3 (0.7-5.8) Baso % (Auto) 0.2 (0.1-1.2) % Neut # (Auto) 7.91 H (1.56-6.13) K/mm3 Lymph # (Auto) 1.39 (1.18-3.74) K/mm3 [place] # (Auto) 1.55 H (0.24-0.36) K/mm3 Eos # (Auto) 0.14 (0.04-0.36) K/mm3 Baso # (Auto) 0.02 (0.01-0.08) K/mm3 Manual Slide Review Abnormal smear Sodium 140 (136-145) mEq/L Potassium 4.0 (3.5-5.1) mEq/L Chloride 104 (98-107) mEq/L Carbon Dioxide 28 (21-32) mEq/L Anion Gap 12.0 (5-15) BUN 10 (7-18) mg/dL Creatinine 0.7 (0.55-1.02) mg/dL Est Cr Clr Drug Dosing 61.81 mL/min Estimated GFR (MDRD) > 60 (>60) mL/min BUN/Creatinine Ratio 14.3 (14-18) Glucose 105 (83-115) mg/dL Calcium 8.4 L (8.5-10.1) mg/dL Total Bilirubin 0.6 (0.2-1.0) mg/dL AST 101 H (15-37) U/L ALT 223 H (14-59) U/L Alkaline Phosphatase 93 (46-116) U/L Total Protein 6.4 (6.4-8.2) g/dl Albumin 2.9 L (3.4-5.0) g/dl Globulin 3.5 gm/dL Albumin/Globulin Ratio 0.8 L (1-2) Result Diagrams: 07/19/20 05:45 07/19/20 05:45 Sepsis Event Note - Evaluation Sepsis Screening Result: No Definite Risk - Focused Exam Vital Signs: Vital Signs Temp Pulse Resp BP Pulse Ox Pulse Ox 07/19/20 11:22 37.1 C 81 16 168/70 H 96 07/19/20 09:39 83 158/65 H 07/19/20 08:05 95 07/19/20 07:29 36.2 C 83 16 158/65 H 95 07/19/20 04:02 84 16 151/78 H 93 L - Problem List Review Problem List Initiated/Reviewed/Updated: Yes - My Orders Last 24 Hours: My Active Orders 07/19/20 07:30 Lactulose [Cephulac] 20 gm PO DAILY PRN 07/19/20 09:15 carvediloL [Coreg] 3.125 mg PO BID 07/19/20 11:00 fentaNYL [Duragesic] 12 mcg TRDERM Q72H 07/20/20 05:00 CBC WITH AUTO DIFF [HEME] DAILY COMPREHENSIVE METABOLIC PN,CMP [CHEM] DAILY 07/20/20 07:45 CBC WITH AUTO DIFF [HEME] DAILY 07/21/20 05:00 CBC WITH AUTO DIFF [HEME] DAILY COMPREHENSIVE METABOLIC PN,CMP [CHEM] DAILY 07/21/20 07:45 CBC WITH AUTO DIFF [HEME] DAILY 07/22/20 05:00 CBC WITH AUTO DIFF [HEME] DAILY COMPREHENSIVE METABOLIC PN,CMP [CHEM] DAILY 07/22/20 07:45 CBC WITH AUTO DIFF [HEME] DAILY 07/23/20 05:00 CBC WITH AUTO DIFF [HEME] DAILY COMPREHENSIVE METABOLIC PN,CMP [CHEM] DAILY 07/23/20 07:45 CBC WITH AUTO DIFF [HEME] DAILY - Assessment Assessment:: Patient is a 74-year-old female who was at home and suffered a mechanical fall resulting in her falling down approximately 10 stairs. The patient denies any loss of consciousness and denies taking any blood thinners prior to her fall. Assessment: Rib Fracture -Left Anterior rib fractures affecting the third fourth fifth and sixth ribs -Left Posterior fractures involving the ninth and 10th ribs -No Flail segments Acute hypoxic respiratory failure -secondary to pulmonary contusion, rib fractures -On 2L, improving to 1 L today Pulmonary Contusion -secondary to fall with multiple rib fractures -Repeat chest x-ray yesterday showed increased density within the right upper chest. This may represent areas of atelectasis versus acute pneumonia if patient has infectious symptoms -No evidence of pneumonia -afebrile, no tachycardia, no tachypnea, no increase in need of oxygen, leukocytosis are trending down to 11.04 Compression fracture -age indeterminate on CT Acute Pain secondary to trauma -Ongoing currently on Oxycontin 20 mg BID, Toradol 15 mg IV every 6 hours as needed, fentanyl patch 12 MCG every 72 hours, as well as Dilaudid 1mg q2 hrs prn Mechanical fall -Resulting in acute pain, L anterior/posterior rib fractures -No LOC, No anticoagulation at time of fall HTN -Unaware of what medication she takes, started 1 month ago -Hydralazine -will add carvedilol 3.125 mg twice daily Plan: -Consulted Anesthesia/TV NEWS DIRECTOR for possible intercostal nerve block given severe pain (not available) -Oxygen to maintain SPO2 greater than 88% Increase OxyContin to 20mg from 10 mg p.o. every 12 hours -Increased Dilaudid 1 mg to every 2 hours as needed pain Toradol 15 mg p.o. every 6 hours as needed pain -Fentanyl patch 12 MCG every 72 hours -Hydralazine as needed hypertension -PT/OT -Respiratory consultation, incentive spirometer every hour, -Up with assist -No antibiotics for possible pneumonia on chest x-ray. Closely monitor. Procalcitonin and repeat chest x-ray tomorrow. -SCDs Lovenox -Resume home medications -Regular Diet Deposition: PT OT Deposition: Possible discharge tomorrow if no evidence of pneumonia.
--- NOTE | 2020-07-19 17:45 | CR ---
Abdomen: Portable supine view of the abdomen was obtained. Comparison: No prior abdominal imaging is available. Small amount of stool is seen within the colon as well as scattered gas. This appears nonspecific. Previous lumbar spine surgery is noted. No discrete soft tissue abnormality is seen. Impression: 1. Nonspecific findings as noted above. Diagnostic code #2
[2020-07-19] MEDS ORDERED: Bisacodyl 10 MG Supp RECTAL ONE (18:20)
[2020-07-19] MEDS: Pravastatin 20 MG Tab PO SCH (20:26)
[2020-07-20] MEDS: Acetaminophen 325 MG Tab PO PRN (01:44)
[2020-07-20] MEDS: HYDROmorphone 1 MG/ML Syringe IVPUSH PRN ×2 (01:45→10:42)
[2020-07-20] MEDS: Ketorolac 15 MG/ML SDV IVPUSH PRN (04:44)
[2020-07-20] MEDS: Sodium Chloride 0.9% 1,000 ML IV SCH (06:23)
[2020-07-20] MEDS: Carvedilol 3.125 MG Tab PO SCH (08:24)
[2020-07-20] MEDS: Docusate Sodium 100 MG Cap PO SCH ×2 (08:24→20:51)
[2020-07-20] MEDS: Enoxaparin 40 MG/0.4 ML Syringe SUBCUT SCH (08:25)
[2020-07-20] MEDS: Polyethylene Glycol 3350 Powder 17 GM Packet PO SCH (08:25)
[2020-07-20] MEDS: oxyCODONE ER 20 MG TAB.ER PO SCH (08:26)
[2020-07-20] MEDS: buPROPion 150 MG Tab.ER PO SCH (08:29)
[2020-07-20] MEDS: Famotidine 20 MG Tab PO SCH ×2 (08:29→20:51)
[2020-07-20] MEDS: Cyclobenzaprine 10 MG Tab PO PRN (10:52)
--- NOTE | 2020-07-20 11:05 | PCM.PN ---
- General Info Date of Service: 07/20/20 Admission Dx/Problem (Free Text): Admission Diagnosis/Problem Admission Diagnosis/Problem Fall as cause of accidental injury in home as place of occurrence Subjective Update: In to see Magali. She is laying in bed and reports continued left-sided rib pain. Per patient she has a longstanding history of chronic pain. PT and OT report they have been working with this patient for quite some time. We will repeat chest x-ray today to rule out worsening pneumonia. Patient has had no infectious symptoms. Procalcitonin is still pending. She continues to require half liter of oxygen. Blood pressure remains somewhat elevated 152/74. This is likely exacerbated by pain. Continued leukocytosis 11.79. She is utilizing her incentive spirometer. Hemoglobin has been slowly trending downward at 10.3 however patient has been on IV fluids. These will be discontinued. Platelets have been stable. Electrolytes remained stable. AST has slightly elevated at 116 and ALT is up to 232. Bilirubin remains normal at 0.8 and alk phosphatase is 115. Albumin is down to 2.8. We will continue to monitor liver enzymes. Otherwise plan is for discharge tomorrow. Patient reports she is doing okay. PT and OT evaluated the patient and said she is appropriate for discharge home with her . We will continue to attempt to wean oxygen. Functional Status: Reports: Pain Controlled (somewhat ), Tolerating Diet, Ambulating (at times ), Urinating, Incentive Spirometry. Denies: New Symptoms - Review of Systems General: Reports: No Symptoms, Weakness. Denies: Fever, Fatigue, Malaise, Chills HEENT: Reports: No Symptoms. Denies: Headaches, Sore Throat Pulmonary: Reports: Shortness of Breath, Pleuritic Chest Pain. Denies: Cough, Sputum, Hemoptysis, Wheezing Cardiovascular: Reports: Chest Pain (left mid axillary 2/2 rib fx). Denies: Palpitations, Orthopnea, Edema, Lightheadedness Gastrointestinal: Reports: Abdominal Pain (reports left sided abdominal pain ). Denies: Constipation, Diarrhea, Nausea, Vomiting Genitourinary: Reports: No Symptoms. Denies: Pain Musculoskeletal: Reports: No Symptoms Skin: Reports: No Symptoms. Denies: Cyanosis Neurological: Reports: No Symptoms, Difficulty Walking, Weakness, Gait Distur bance. Denies: Confusion, Dizziness, Headache, Pre-Existing Deficit, Seizure, Syncope Psychiatric: Reports: No Symptoms - Patient Data Vitals - Most Recent: Last Vital Signs Temp 98.6 F 07/20/20 08:01 Pulse 95 07/20/20 08:24 Resp 14 07/20/20 08:01 BP 152/74 H 07/20/20 08:24 Pulse Ox 91 L 07/20/20 08:31 Weight - Most Recent: 153 lb 14.4 oz I&O - Last 24 Hours: Intake & Output 07/19/20 07/20/20 07/20/20 22:59 06:59 14:59 Intake Total 1600 1347 Output Total 420 800 Balance 1180 547 Lab Results Last 24 Hours: Laboratory Results - last 24 hr 07/20/20 07/20/20 Range/Units 06:26 06:26 WBC 11.79 H (3.98-10.04) K/mm3 RBC 3.38 L (3.98-5.22) M/mm3 Hgb 10.3 L (11.2-15.7) gm/dl Hct 33.1 L (34.1-44.9) % MCV 97.9 H (79.4-94.8) fl MCH 30.5 (25.6-32.2) pg MCHC 31.1 L (32.2-35.5) g/dl RDW Std Deviation 44.6 (36.4-46.3) fL Plt Count 224 (182-369) K/mm3 MPV 10.4 (9.4-12.3) fl Neut % (Auto) 71.1 (34.0-71.1) % Lymph % (Auto) 12.6 L (19.3-51.7) % [place] % (Auto) 14.2 H (4.7-12.5) % Eos % (Auto) 1.6 (0.7-5.8) Baso % (Auto) 0.2 (0.1-1.2) % Neut # (Auto) 8.39 H (1.56-6.13) K/mm3 Lymph # (Auto) 1.48 (1.18-3.74) K/mm3 [place] # (Auto) 1.68 H (0.24-0.36) K/mm3 Eos # (Auto) 0.19 (0.04-0.36) K/mm3 Baso # (Auto) 0.02 (0.01-0.08) K/mm3 Manual Slide Review Abnormal smear Sodium 138 (136-145) mEq/L Potassium 3.6 (3.5-5.1) mEq/L Chloride 102 (98-107) mEq/L Carbon Dioxide 27 (21-32) mEq/L Anion Gap 12.6 (5-15) BUN 12 (7-18) mg/dL Creatinine 0.8 (0.55-1.02) mg/dL Est Cr Clr Drug Dosing 54.08 mL/min Estimated GFR (MDRD) > 60 (>60) mL/min BUN/Creatinine Ratio 15.0 (14-18) Glucose 108 (83-115) mg/dL Calcium 8.3 L (8.5-10.1) mg/dL Total Bilirubin 0.8 (0.2-1.0) mg/dL AST 116 H (15-37) U/L ALT 232 H (14-59) U/L Alkaline Phosphatase 115 (46-116) U/L Total Protein 6.4 (6.4-8.2) g/dl Albumin 2.8 L (3.4-5.0) g/dl Globulin 3.6 gm/dL Albumin/Globulin Ratio 0.8 L (1-2) Med Orders - Current: Current Medications Acetaminophen (Acetaminophen 325 Mg Tab) 650 mg PO Q4H PRN PRN Reason: Pain (Mild 1-3)/fever Last Admin: 07/20/20 01:44 Dose: 650 mg Documented by: Alprazolam (Alprazolam 0.5 Mg Tab) 0.5 mg PO DAILY PRN PRN Reason: Anxiety Last Admin: 07/16/20 22:57 Dose: 0.5 mg Documented by: Bisacodyl (Bisacodyl 5 Mg Tab) 5 mg PO DAILY PRN PRN Reason: Constipation Bupropion HCl (Bupropion 150 Mg Tab.Er) 300 mg PO DAILY [facility] Last Admin: 07/20/20 08:29 Dose: 300 mg Documented by: Carvedilol (Carvedilol 3.125 Mg Tab) 3.125 mg PO BID [facility] Last Admin: 07/20/20 08:24 Dose: 3.125 mg Documented by: Cyclobenzaprine HCl (Cyclobenzaprine 10 Mg Tab) 5 mg PO BID PRN PRN Reason: Spasms Last Admin: 07/20/20 10:52 Dose: 5 mg Documented by: Docusate Sodium (Docusate Sodium 100 Mg Cap) 100 mg PO BID [facility] Last Admin: 07/20/20 08:24 Dose: 100 mg Documented by: Enoxaparin Sodium (Enoxaparin 40 Mg/0.4 Ml Syringe) 40 mg SUBCUT Q24H [facility] Last Admin: 07/20/20 08:25 Dose: 40 mg Documented by: Famotidine (Famotidine 20 Mg Tab) 20 mg PO BID [facility] Last Admin: 07/20/20 08:29 Dose: 20 mg Documented by: Fentanyl (Fentanyl 12 Mcg/Hr Transdermal Patch) 12 mcg TRDERM Q72H [facility] Last Admin: 07/19/20 11:21 Dose: 12 mcg Documented by: Hydralazine HCl (Hydralazine 20 Mg/Ml Sdv) 10 mg IVPUSH Q6H PRN PRN Reason: Hypertension Hydromorphone HCl (Hydromorphone 1 Mg/Ml Syringe) 1 mg IVPUSH Q2H PRN PRN Reason: Pain Last Admin: 07/20/20 10:42 Dose: 1 mg Documented by: Sodium Chloride (Normal Saline) 1,000 mls @ 70 mls/hr IV ASDIRECTED [facility] Last Admin: 07/20/20 06:23 Dose: 70 mls/hr Documented by: Ketorolac Tromethamine (Ketorolac 15 Mg/Ml Sdv) 15 mg IVPUSH Q6H PRN PRN Reason: Pain (moderate 4-6) Last Admin: 07/20/20 04:44 Dose: 15 mg Documented by: Lactulose (Lactulose Soln 10 Gm/15 Ml 30 Ml Ud Cup) 20 gm PO DAILY PRN PRN Reason: Constipation Last Admin: 07/19/20 08:41 Dose: 20 gm Documented by: Miscellaneous Information (Remove Patch *Fentanyl*) 1 ea TRDERM Q72H [facility] Ondansetron HCl (Ondansetron 4 Mg/2 Ml Sdv) 4 mg IV Q4H PRN PRN Reason: Nausea/Vomiting Last Admin: 07/18/20 07:49 Dose: 4 mg Documented by: Oxycodone HCl (Oxycodone Er 20 Mg Tab.Er) 20 mg PO Q12HR [facility] Last Admin: 07/20/20 08:26 Dose: 20 mg Documented by: Polyethylene Glycol (Polyethylene Glycol 3350 Powder 17 Gm Packet) 17 gm PO DAILY [facility] Last Admin: 07/20/20 08:25 Dose: Not Given Documented by: Pravastatin Sodium (Pravastatin 20 Mg Tab) 40 mg PO BEDTIME [facility] Last Admin: 07/19/20 20:26 Dose: 40 mg Documented by: Senna (Sennosides 8.6 Mg Tab) 8.6 mg PO BID PRN PRN Reason: Constipation Discontinued Medications Alprazolam (Alprazolam 0.5 Mg Tab) 0.5 mg PO BID PRN PRN Reason: Anxiety Aspirin (Aspirin 325 Mg Tab.Ec) 325 mg PO BID [facility] Bisacodyl (Bisacodyl 10 Mg Supp) 10 mg RECTAL ONETIME ONE Stop: 07/19/20 18:21 Last Admin: 07/19/20 18:35 Dose: 10 mg Documented by: Cholecalciferol (Cholecalciferol (Vitamin D3) 5,000 Unit Tab) 5,000 unit PO DAILY [facility] Fentanyl (Fentanyl 100 Mcg/2 Ml Sdv) 50 mcg IVPUSH ONETIME ONE Stop: 07/16/20 13:17 Last Admin: 07/16/20 13:25 Dose: 50 mcg Documented by: Gabapentin (Gabapentin 300 Mg Cap) 300 mg PO BEDTIME [facility] Hydromorphone HCl (Hydromorphone 0.5 Mg/0.5 Ml Syringe) 0.5 mg IVPUSH ONETIME ONE Stop: 07/16/20 14:18 Last Admin: 07/16/20 14:22 Dose: 0.5 mg Documented by: Hydromorphone HCl (Hydromorphone 0.5 Mg/0.5 Ml Syringe) 0.5 mg IVPUSH ONETIME ONE Stop: 07/16/20 15:11 Last Admin: 07/16/20 15:28 Dose: 0.5 mg Documented by: Hydromorphone HCl (Hydromorphone 1 Mg/Ml Syringe) 1 mg IVPUSH Q3H PRN PRN Reason: Pain (severe 7-10) Last Admin: 07/18/20 08:55 Dose: 1 mg Documented by: Ketorolac Tromethamine (Ketorolac 15 Mg/Ml Sdv) 15 mg IM Q6H PRN PRN Reason: Pain (moderate 4-6) Last Admin: 07/18/20 13:05 Dose: 15 mg Documented by: Metoclopramide HCl (Metoclopramide 10 Mg/2 Ml Sdv) 7.5 mg IVPUSH ONETIME ONE Stop: 07/16/20 13:17 Last Admin: 07/16/20 13:23 Dose: 7.5 mg Documented by: Non-Formulary Medication (Melatonin [Melatonin]) 5 mg PO BEDTIME PRN PRN Reason: Insomnia Non-Formulary Medication (Hydrocodone/Acetaminophen) 1 tab PO Q6H PRN PRN Reason: Pain Oxycodone HCl (Oxycodone Er 10 Mg Tab.Er) 10 mg PO Q12HR [facility] Last Admin: 07/17/20 08:30 Dose: 10 mg Documented by: Oxycodone HCl (Oxycodone Er 10 Mg Tab.Er) 10 mg PO ONETIME ONE Stop: 07/17/20 11:29 Last Admin: 07/17/20 13:13 Dose: 10 mg Documented by: Polyethylene Glycol (Polyethylene Glycol 3350 Powder 17 Gm Packet) 17 gm PO DAILY PRN PRN Reason: Constipation Pravastatin Sodium (Pravastatin 20 Mg Tab) 10 mg PO DAILY [facility] - Exam Quality Assessment: Supplemental Oxygen (0.5L), DVT Prophylaxis. No: Urine Catheter General: Alert, Oriented, Cooperative, No Acute Distress HEENT: Pupils Equal, Pupils Reactive, Mucous Membr. Moist/[place] Neck: Supple, Trachea Midline Lungs: Clear to Auscultation, Normal Respiratory Effort, Other (No crepitus or flail chest.) Cardiovascular: Regular Rate, Regular Rhythm GI/Abdominal Exam: Normal Bowel Sounds, Soft, Non-Tender, No Distention (Female) Exam: Deferred Back Exam: Normal Inspection, Full Range of Motion Extremities: Normal Inspection, Normal Range of Motion, Non-Tender, No Pedal Edema, Normal Capillary Refill Peripheral Pulses: 3+: Radial (L), Radial (R), Dorsalis Pedis (L), Dorsalis Pedis (R) Skin: Warm, Dry, Intact Neurological: No New Focal Deficit Psy/Mental Status: Alert, Anxious - Patient Data Lab Results Last 24 hrs: Laboratory Results - last 24 hr 07/20/20 07/20/20 Range/Units 06:26 06:26 WBC 11.79 H (3.98-10.04) K/mm3 RBC 3.38 L (3.98-5.22) M/mm3 Hgb 10.3 L (11.2-15.7) gm/dl Hct 33.1 L (34.1-44.9) % MCV 97.9 H (79.4-94.8) fl MCH 30.5 (25.6-32.2) pg MCHC 31.1 L (32.2-35.5) g/dl RDW Std Deviation 44.6 (36.4-46.3) fL Plt Count 224 (182-369) K/mm3 MPV 10.4 (9.4-12.3) fl Neut % (Auto) 71.1 (34.0-71.1) % Lymph % (Auto) 12.6 L (19.3-51.7) % [place] % (Auto) 14.2 H (4.7-12.5) % Eos % (Auto) 1.6 (0.7-5.8) Baso % (Auto) 0.2 (0.1-1.2) % Neut # (Auto) 8.39 H (1.56-6.13) K/mm3 Lymph # (Auto) 1.48 (1.18-3.74) K/mm3 [place] # (Auto) 1.68 H (0.24-0.36) K/mm3 Eos # (Auto) 0.19 (0.04-0.36) K/mm3 Baso # (Auto) 0.02 (0.01-0.08) K/mm3 Manual Slide Review Abnormal smear Sodium 138 (136-145) mEq/L Potassium 3.6 (3.5-5.1) mEq/L Chloride 102 (98-107) mEq/L Carbon Dioxide 27 (21-32) mEq/L Anion Gap 12.6 (5-15) BUN 12 (7-18) mg/dL Creatinine 0.8 (0.55-1.02) mg/dL Est Cr Clr Drug Dosing 54.08 mL/min Estimated GFR (MDRD) > 60 (>60) mL/min BUN/Creatinine Ratio 15.0 (14-18) Glucose 108 (83-115) mg/dL Calcium 8.3 L (8.5-10.1) mg/dL Total Bilirubin 0.8 (0.2-1.0) mg/dL AST 116 H (15-37) U/L ALT 232 H (14-59) U/L Alkaline Phosphatase 115 (46-116) U/L Total Protein 6.4 (6.4-8.2) g/dl Albumin 2.8 L (3.4-5.0) g/dl Globulin 3.6 gm/dL Albumin/Globulin Ratio 0.8 L (1-2) Result Diagrams: 07/20/20 06:26 07/20/20 06:26 Sepsis Event Note - Evaluation Sepsis Screening Result: No Definite Risk - Focused Exam Vital Signs: Vital Signs Temp Pulse Resp BP Pulse Ox Pulse Ox 07/20/20 08:31 91 L 07/20/20 08:24 95 152/74 H 07/20/20 08:21 93 L 07/20/20 08:01 98.6 F 95 14 152/74 H 95 07/20/20 03:37 98.8 F 90 16 158/81 H 96 07/20/20 03:04 87 94 L 07/20/20 00:38 98.8 F 84 18 156/87 H 92 L - Problem List & Annotations (1) Fall as cause of accidental injury at home as place of occurrence SNOMED Code(s): 99392153 Code(s): W19.XXXA - UNSPECIFIED FALL, INITIAL ENCOUNTER; Y92.009 - UNSP PLACE IN UNSP NON-INSTITUT (PRIVATE) RESIDENCE PLACE Status: Acute Priority: High Current Visit: Yes Qualifiers: Encounter type: initial encounter Qualified Code(s): W19.XXXA - Unspecified fall, initial encounter; Y92.009 - Unspecified place in unspecified non- institutional (private) residence as the place of occurrence of the external cause (2) Multiple rib fractures involving four or more ribs SNOMED Code(s): 1908190 Code(s): S22.49XA - MULTIPLE FRACTURES OF RIBS, UNSP SIDE, INIT FOR CLOS FX Status: Acute Priority: High Current Visit: Yes (3) Anxiety disorder SNOMED Code(s): 602313014 Code(s): F41.9 - ANXIETY DISORDER, UNSPECIFIED Status: Chronic Priority: Medium Current Visit: Yes Qualifiers: Anxiety disorder type: unspecified anxiety disorder Qualified Code(s): F41.9 - Anxiety disorder, unspecified (4) Chronic pain SNOMED Code(s): 85130464 Code(s): G89.29 - OTHER CHRONIC PAIN Status: Chronic Priority: High Current Visit: Yes Qualifiers: Chronic pain type: other chronic pain Qualified Code(s): G89.29 - Other chronic pain (5) Low back pain with sciatica SNOMED Code(s): 833973618 Code(s): M54.40 - LUMBAGO WITH SCIATICA, UNSPECIFIED SIDE Status: Chronic Priority: Medium Current Visit: Yes Qualifiers: Chronicity: chronic Back pain laterality: left Sciatica laterality: sc iatica of left side Qualified Code(s): M54.42 - Lumbago with sciatica, left side; G89.29 - Other chronic pain (6) Neuropathic pain, leg SNOMED Code(s): 10885943, 382232603 Code(s): G57.90 - UNSPECIFIED MONONEUROPATHY OF UNSPECIFIED LOWER LIMB Status: Chronic Priority: Medium Current Visit: No Qualifiers: Laterality: left Qualified Code(s): M79.2 - Neuralgia and neuritis, unspecified (7) HTN (hypertension) SNOMED Code(s): 82664412 Code(s): I10 - ESSENTIAL (PRIMARY) HYPERTENSION Status: Chronic Priority: Medium Current Visit: No Qualifiers: Hypertension type: essential hypertension Qualified Code(s): I10 - Essential (primary) hypertension (8) Pulmonary contusion SNOMED Code(s): 261911441 Code(s): S27.329A - CONTUSION OF LUNG, UNSPECIFIED, INITIAL ENCOUNTER Sta tus: Acute Priority: High Current Visit: Yes Qualifiers: Encounter type: initial encounter Laterality: left Qualified Code(s): S27.321A - Contusion of lung, unilateral, initial encounter (9) Acute hypoxemic respiratory failure SNOMED Code(s): 504723434 Code(s): J96.01 - ACUTE RESPIRATORY FAILURE WITH HYPOXIA Status: Acute Priority: High Current Visit: Yes (10) Leukocytosis SNOMED Code(s): 743166955, 997258012 Code(s): D72.829 - ELEVATED WHITE BLOOD CELL COUNT, UNSPECIFIED Status: Acute Priority: Medium Current Visit: Yes Qualifiers: Leukocytosis type: unspecified Qualified Code(s): D72.829 - Elevated white blood cell count, unspecified - Problem List Review Problem List Initiated/Reviewed/Updated: Yes - Assessment Assessment:: Patient is a 74-year-old female who was at home and suffered a mechanical fall resulting in her falling down approximately 10 stairs. The patient denies any loss of consciousness and denies taking any blood thinners prior to her fall. Assessment: Rib Fracture -Left Anterior rib fractures affecting the third fourth fifth and sixth ribs -Left Posterior fractures involving the ninth and 10th ribs -No Flail segments Acute hypoxic respiratory failure -Secondary to pulmonary contusion, rib fractures -On 2L, improving to 1 L today Pulmonary Contusion -Secondary to fall with multiple rib fractures -Repeat chest x-ray yesterday showed increased density within the right upper chest. This may represent areas of atelectasis versus acute pneumonia if patient has infectious symptoms -No evidence of pneumonia -afebrile, no tachycardia, no tachypnea, no increase in need of oxygen, leukocytosis stable which is likely stress related -Repeat CXR today Compression fracture -Age indeterminate on CT -History of chronic pain at baseline - currently seeing PT/OT for this outpatient Acute Pain secondary to trauma -Ongoing currently on Oxycontin 20 mg BID, Toradol 15 mg IV every 6 hours as needed, fentanyl patch 12 MCG every 72 hours, as well as Dilaudid 1mg q2 hrs prn -History of chronic pain at baseline Mechanical fall -Resulting in acute pain, L anterior/posterior rib fractures -No LOC, No anticoagulation at time of fall HTN -Unaware of what medication she takes, started 1 month ago -Hydralazine -Continue carvedilol 3.125 mg twice daily -Likely exacerbated by pain Leukocytosis -Bilirubin 0.8, AST 116, ALT 232, alkaline phosphatase 115. -Patient has been receiving Tylenol -will hold this for now. -Continue to monitor - Plan Plan:: Plan: -Consulted Anesthesia/[employer] for possible intercostal nerve block given severe pain (not available) -Oxygen to maintain SPO2 greater than 88% Continue OxyContin to 20mg every 12 hours -Continue Dilaudid 1 mg to every 2 hours as needed pain Toradol 15 mg IV every 6 hours as needed pain -Fentanyl patch 12 MCG every 72 hours -Hydralazine as needed hypertension -PT/OT -Respiratory consultation, incentive spirometer every hour, -Up with assist -No antibiotics for possible pneumonia on chest x-ray. Closely monitor. Procalcitonin pending -Repeat CXR today -SCDs Lovenox -Resume home medications -Regular Diet -Discontinue IV fluids today Deposition: Possible discharge tomorrow if no evidence of pneumonia. PT/OT recommending home with . LOS>96 hrs due to difficulty managing pain, need for further workup to r/o PNA.
--- NOTE | 2020-07-20 12:28 | CR ---
Chest: Frontal view of the chest was obtained. Comparison: Prior chest x-ray of 07/18/20. Thickening along the lateral left chest and within the lateral left costophrenic angle is noted. Elevated right hemidiaphragm is seen. Slight parenchymal density is noted within the left lung base. Heart size is mildly enlarged. Upper mediastinum is within normal limits. Surgical clips are noted within the upper right abdomen. No definite acute bony abnormality is appreciated. Impression: 1. Slight increased density within the left lung base as compared to prior study presumably due to atelectasis. 2. Other stable findings as noted above. Diagnostic code #3
[2020-07-20] MEDS: hydrALAZINE 20 MG/ML SDV IVPUSH PRN ×2 (15:06→21:02)
[2020-07-20] MEDS ORDERED: HYDROmorphone 0.5 MG/0.5 ML Syringe IVPUSH PRN (16:30)
[2020-07-20] MEDS ORDERED: oxyCODONE ER 10 MG TAB.ER PO PRN (16:31)
--- NOTE | 2020-07-20 16:37 | PCM.SN.2 ---
- Free Text/Narrative Note: EKG performed on July 20, 2020 at 4: 14: 39 -sinus tachycardia; nonspecific intraventricular conduction delay; Q waves are seen in the anterior septal and lateral leads. Other abnormalities could be missed.
[2020-07-20] MEDS ORDERED: oxyCODONE 5 MG Tab PO PRN (16:46)
[2020-07-20] MEDS: amLODIPine 2.5 MG Tab PO SCH (17:21)
[2020-07-20] MEDS: Metoprolol Tartrate 25 MG Tab PO SCH (17:21)
[2020-07-20] MEDS: Pravastatin 20 MG Tab PO SCH (20:51)
[2020-07-21] MEDS ORDERED: Haloperidol Lactate 5 MG/ML SDV IVPUSH ONE (01:09)
[2020-07-21] MEDS ORDERED: LORazepam 2 MG/ML SDV IVPUSH ONE (01:10)
[2020-07-21] MEDS: Metoprolol Tartrate 25 MG Tab PO SCH (04:41)
[2020-07-21] MEDS: amLODIPine 2.5 MG Tab PO SCH (08:42)
[2020-07-21] MEDS: Famotidine 20 MG Tab PO SCH (08:43)
[2020-07-21] MEDS: Cyclobenzaprine 10 MG Tab PO PRN (08:43)
[2020-07-21] MEDS: Docusate Sodium 100 MG Cap PO SCH (08:44)
[2020-07-21] MEDS: buPROPion 150 MG Tab.ER PO SCH (08:44)
[2020-07-21] MEDS: Enoxaparin 40 MG/0.4 ML Syringe SUBCUT SCH (08:44)
[2020-07-21] MEDS: Polyethylene Glycol 3350 Powder 17 GM Packet PO SCH (08:44)
[2020-07-21] MEDS ORDERED: Potassium Chloride 20 MEQ Tab.ER PO ONE (09:16)
--- NOTE | 2020-07-21 11:11 | PCM.PN ---
- General Info Date of Service: 07/21/20 Admission Dx/Problem (Free Text): Admission Diagnosis/Problem Admission Diagnosis/Problem Fall as cause of accidental injury in home as place of occurrence - Patient Data Vitals - Most Recent: Last Vital Signs Temp 99.1 F 07/21/20 07:23 Pulse 85 07/21/20 07:23 Resp 16 07/21/20 07:23 BP 154/84 H 07/21/20 08:42 Pulse Ox 97 07/21/20 08:54 Weight - Most Recent: 154 lb 3.2 oz I&O - Last 24 Hours: Intake & Output 07/20/20 07/21/20 07/21/20 22:59 06:59 14:59 Intake Total 810 200 Output Total 700 600 Balance 110 -400 Lab Results Last 24 Hours: Laboratory Results - last 24 hr 07/20/20 07/20/20 07/20/20 Range/Units 06:26 17:08 17:08 WBC (3.98-10.04) K/mm3 RBC (3.98-5.22) M/mm3 Hgb (11.2-15.7) gm/dl Hct (34.1-44.9) % MCV (79.4-94.8) fl MCH (25.6-32.2) pg MCHC (32.2-35.5) g/dl RDW Std Deviation (36.4-46.3) fL Plt Count (182-369) K/mm3 MPV (9.4-12.3) fl Neut % (Auto) (34.0-71.1) % Lymph % (Auto) (19.3-51.7) % [place] % (Auto) (4.7-12.5) % Eos % (Auto) (0.7-5.8) Baso % (Auto) (0.1-1.2) % Neut # (Auto) (1.56-6.13) K/mm3 Lymph # (Auto) (1.18-3.74) K/mm3 [place] # (Auto) (0.24-0.36) K/mm3 Eos # (Auto) (0.04-0.36) K/mm3 Baso # (Auto) (0.01-0.08) K/mm3 Manual Slide Review Sodium (136-145) mEq/L Potassium (3.5-5.1) mEq/L Chloride (98-107) mEq/L Carbon Dioxide (21-32) mEq/L Anion Gap (5-15) BUN (7-18) mg/dL Creatinine (0.55-1.02) mg/dL Est Cr Clr Drug Dosing mL/min Estimated GFR (MDRD) (>60) mL/min BUN/Creatinine Ratio (14-18) Glucose (70-99) mg/dL Calcium (8.5-10.1) mg/dL Magnesium (1.8-2.4) mg/dL Total Bilirubin (0.2-1.0) mg/dL AST (15-37) U/L ALT (14-59) U/L Alkaline Phosphatase (46-116) U/L Troponin I < 0.017 (0.00-0.056) ng/mL NT-Pro-B Natriuret Pep 674 H (0-125) pg/mL Total Protein (6.4-8.2) g/dl Albumin (3.4-5.0) g/dl Globulin gm/dL Albumin/Globulin Ratio (1-2) Procalcitonin <0.05 ng/mL 07/21/20 07/21/20 07/21/20 Range/Units 05:57 05:57 05:57 WBC 13.89 H (3.98-10.04) K/mm3 RBC 3.52 L (3.98-5.22) M/mm3 Hgb 10.7 L (11.2-15.7) gm/dl Hct 33.7 L (34.1-44.9) % MCV 95.7 H (79.4-94.8) fl MCH 30.4 (25.6-32.2) pg MCHC 31.8 L (32.2-35.5) g/dl RDW Std Deviation 43.3 (36.4-46.3) fL Plt Count 259 (182-369) K/mm3 MPV 10.5 (9.4-12.3) fl Neut % (Auto) 78.5 H (34.0-71.1) % Lymph % (Auto) 9.1 L (19.3-51.7) % [place] % (Auto) 11.5 (4.7-12.5) % Eos % (Auto) 0.6 L (0.7-5.8) Baso % (Auto) 0.1 (0.1-1.2) % Neut # (Auto) 10.90 H (1.56-6.13) K/mm3 Lymph # (Auto) 1.26 (1.18-3.74) K/mm3 [place] # (Auto) 1.60 H (0.24-0.36) K/mm3 Eos # (Auto) 0.08 (0.04-0.36) K/mm3 Baso # (Auto) 0.02 (0.01-0.08) K/mm3 Manual Slide Review Abnormal smear Sodium 140 (136-145) mEq/L Potassium 3.3 L (3.5-5.1) mEq/L Chloride 103 (98-107) mEq/L Carbon Dioxide 27 (21-32) mEq/L Anion Gap 13.3 (5-15) BUN 13 (7-18) mg/dL Creatinine 0.6 (0.55-1.02) mg/dL Est Cr Clr Drug Dosing 72.11 mL/min Estimated GFR (MDRD) > 60 (>60) mL/min BUN/Creatinine Ratio 21.7 H (14-18) Glucose 104 H (70-99) mg/dL Calcium 8.5 (8.5-10.1) mg/dL Magnesium 1.9 (1.8-2.4) mg/dL Total Bilirubin 0.5 (0.2-1.0) mg/dL AST 34 (15-37) U/L ALT 144 H (14-59) U/L Alkaline Phosphatase 114 (46-116) U/L Troponin I (0.00-0.056) ng/mL NT-Pro-B Natriuret Pep (0-125) pg/mL Total Protein 6.3 L (6.4-8.2) g/dl Albumin 2.6 L (3.4-5.0) g/dl Globulin 3.7 gm/dL Albumin/Globulin Ratio 0.7 L (1-2) Procalcitonin ng/mL Med Orders - Current: Current Medications Alprazolam (Alprazolam 0.5 Mg Tab) 0.5 mg PO DAILY PRN PRN Reason: Anxiety Last Admin: 07/16/20 22:57 Dose: 0.5 mg Documented by: Amlodipine Besylate (Amlodipine 2.5 Mg Tab) 2.5 mg PO DAILY [facility] Last Admin: 07/21/20 08:42 Dose: 2.5 mg Documented by: Bisacodyl (Bisacodyl 5 Mg Tab) 5 mg PO DAILY PRN PRN Reason: Constipation Bupropion HCl (Bupropion 150 Mg Tab.Er) 300 mg PO DAILY [facility] Last Admin: 07/21/20 08:44 Dose: 300 mg Documented by: Cyclobenzaprine HCl (Cyclobenzaprine 10 Mg Tab) 5 mg PO BID PRN PRN Reason: Spasms Last Admin: 07/21/20 08:43 Dose: 5 mg Documented by: Docusate Sodium (Docusate Sodium 100 Mg Cap) 100 mg PO BID [facility] Last Admin: 07/21/20 08:44 Dose: 100 mg Documented by: Enoxaparin Sodium (Enoxaparin 40 Mg/0.4 Ml Syringe) 40 mg SUBCUT Q24H [facility] Last Admin: 07/21/20 08:44 Dose: 40 mg Documented by: Famotidine (Famotidine 20 Mg Tab) 20 mg PO BID [facility] Last Admin: 07/21/20 08:43 Dose: 20 mg Documented by: Hydralazine HCl (Hydralazine 20 Mg/Ml Sdv) 10 mg IVPUSH Q6H PRN PRN Reason: Hypertension Last Admin: 07/20/20 21:02 Dose: 10 mg Documented by: Hydromorphone HCl (Hydromorphone 0.5 Mg/0.5 Ml Syringe) 0.5 mg IVPUSH Q2H PRN PRN Reason: Pain (severe 7-10) Ketorolac Tromethamine (Ketorolac 15 Mg/Ml Sdv) 15 mg IVPUSH Q6H PRN PRN Reason: Pain (moderate 4-6) Last Admin: 07/20/20 04:44 Dose: 15 mg Documented by: Lactulose (Lactulose Soln 10 Gm/15 Ml 30 Ml Ud Cup) 20 gm PO DAILY PRN PRN Reason: Constipation Last Admin: 07/19/20 08:41 Dose: 20 gm Documented by: Metoprolol Tartrate (Metoprolol Tartrate 25 Mg Tab) 12.5 mg PO Q12H [facility] Last Admin: 07/21/20 04:41 Dose: 12.5 mg Documented by: Ondansetron HCl (Ondansetron 4 Mg/2 Ml Sdv) 4 mg IV Q4H PRN PRN Reason: Nausea/Vomiting Last Admin: 07/18/20 07:49 Dose: 4 mg Documented by: Oxycodone HCl (Oxycodone 5 Mg Tab) 5 mg PO Q6H PRN PRN Reason: Pain (moderate 4-6) Last Admin: 07/21/20 08:43 Dose: 5 mg Documented by: Polyethylene Glycol (Polyethylene Glycol 3350 Powder 17 Gm Packet) 17 gm PO DAILY [facility] Last Admin: 07/21/20 08:44 Dose: 17 gm Documented by: Pravastatin Sodium (Pravastatin 20 Mg Tab) 40 mg PO BEDTIME [facility] Last Admin: 07/20/20 20:51 Dose: 40 mg Documented by: Senna (Sennosides 8.6 Mg Tab) 8.6 mg PO BID PRN PRN Reason: Constipation Discontinued Medications Acetaminophen (Acetaminophen 325 Mg Tab) 650 mg PO Q4H PRN PRN Reason: Pain (Mild 1-3)/fever Last Admin: 07/20/20 01:44 Dose: 650 mg Documented by: Alprazolam (Alprazolam 0.5 Mg Tab) 0.5 mg PO BID PRN PRN Reason: Anxiety Aspirin (Aspirin 325 Mg Tab.Ec) 325 mg PO BID [facility] Bisacodyl (Bisacodyl 10 Mg Supp) 10 mg RECTAL ONETIME ONE Stop: 07/19/20 18:21 Last Admin: 07/19/20 18:35 Dose: 10 mg Documented by: Carvedilol (Carvedilol 3.125 Mg Tab) 3.125 mg PO BID [facility] Last Admin: 07/20/20 08:24 Dose: 3.125 mg Documented by: Cholecalciferol (Cholecalciferol (Vitamin D3) 5,000 Unit Tab) 5,000 unit PO DAILY [facility] Fentanyl (Fentanyl 100 Mcg/2 Ml Sdv) 50 mcg IVPUSH ONETIME ONE Stop: 07/16/20 13:17 Last Admin: 07/16/20 13:25 Dose: 50 mcg Documented by: Fentanyl (Fentanyl 12 Mcg/Hr Transdermal Patch) 12 mcg TRDERM Q72H [facility] Last Admin: 07/19/20 11:21 Dose: 12 mcg Documented by: Gabapentin (Gabapentin 300 Mg Cap) 300 mg PO BEDTIME [facility] Haloperidol Lactate (Haloperidol Lactate 5 Mg/Ml Sdv) 1 mg IVPUSH ONETIME ONE Stop: 07/21/20 01:10 Last Admin: 07/21/20 01:16 Dose: 1 mg Documented by: Hydromorphone HCl (Hydromorphone 0.5 Mg/0.5 Ml Syringe) 0.5 mg IVPUSH ONETIME ONE Stop: 07/16/20 14:18 Last Admin: 07/16/20 14:22 Dose: 0.5 mg Documented by: Hydromorphone HCl (Hydromorphone 0.5 Mg/0.5 Ml Syringe) 0.5 mg IVPUSH ONETIME ONE Stop: 07/16/20 15:11 Last Admin: 07/16/20 15:28 Dose: 0.5 mg Documented by: Hydromorphone HCl (Hydromorphone 1 Mg/Ml Syringe) 1 mg IVPUSH Q3H PRN PRN Reason: Pain (severe 7-10) Last Admin: 07/18/20 08:55 Dose: 1 mg Documented by: Hydromorphone HCl (Hydromorphone 1 Mg/Ml Syringe) 1 mg IVPUSH Q2H PRN PRN Reason: Pain Last Admin: 07/20/20 10:42 Dose: 1 mg Documented by: Sodium Chloride (Normal Saline) 1,000 mls @ 70 mls/hr IV ASDIRECTED [facility] Last Admin: 07/20/20 06:23 Dose: 70 mls/hr Documented by: Ketorolac Tromethamine (Ketorolac 15 Mg/Ml Sdv) 15 mg IM Q6H PRN PRN Reason: Pain (moderate 4-6) Last Admin: 07/18/20 13:05 Dose: 15 mg Documented by: Lorazepam (Lorazepam 2 Mg/Ml Sdv) 0.5 mg IVPUSH ONETIME ONE Stop: 07/21/20 01:11 Last Admin: 07/21/20 01:16 Dose: 0.5 mg Documented by: Metoclopramide HCl (Metoclopramide 10 Mg/2 Ml Sdv) 7.5 mg IVPUSH ONETIME ONE Stop: 07/16/20 13:17 Last Admin: 07/16/20 13:23 Dose: 7.5 mg Documented by: Miscellaneous Information (Remove Patch *Fentanyl*) 1 ea TRDERM Q72H [facility] Non-Formulary Medication (Melatonin [Melatonin]) 5 mg PO BEDTIME PRN PRN Reason: Insomnia Non-Formulary Medication (Hydrocodone/Acetaminophen) 1 tab PO Q6H PRN PRN Reason: Pain Oxycodone HCl (Oxycodone Er 10 Mg Tab.Er) 10 mg PO Q12HR [facility] Last Admin: 07/17/20 08:30 Dose: 10 mg Documented by: Oxycodone HCl (Oxycodone Er 20 Mg Tab.Er) 20 mg PO Q12HR [facility] Last Admin: 07/20/20 08:26 Dose: 20 mg Documented by: Oxycodone HCl (Oxycodone Er 10 Mg Tab.Er) 10 mg PO ONETIME ONE Stop: 07/17/20 11:29 Last Admin: 07/17/20 13:13 Dose: 10 mg Documented by: Oxycodone HCl (Oxycodone Er 10 Mg Tab.Er) 10 mg PO Q12HR PRN PRN Reason: Pain (moderate 4-6) Polyethylene Glycol (Polyethylene Glycol 3350 Powder 17 Gm Packet) 17 gm PO DAILY PRN PRN Reason: Constipation Potassium Chloride (Potassium Chloride 20 Meq Tab.Er) 40 meq PO ONETIME ONE Stop: 07/21/20 09:17 Pravastatin Sodium (Pravastatin 20 Mg Tab) 10 mg PO DAILY [facility] - Patient Data Lab Results Last 24 hrs: Laboratory Results - last 24 hr 07/20/20 07/20/20 07/20/20 Range/Units 06:26 17:08 17:08 WBC (3.98-10.04) K/mm3 RBC (3.98-5.22) M/mm3 Hgb (11.2-15.7) gm/dl Hct (34.1-44.9) % MCV (79.4-94.8) fl MCH (25.6-32.2) pg MCHC (32.2-35.5) g/dl RDW Std Deviation (36.4-46.3) fL Plt Count (182-369) K/mm3 MPV (9.4-12.3) fl Neut % (Auto) (34.0-71.1) % Lymph % (Auto) (19.3-51.7) % [place] % (Auto) (4.7-12.5) % Eos % (Auto) (0.7-5.8) Baso % (Auto) (0.1-1.2) % Neut # (Auto) (1.56-6.13) K/mm3 Lymph # (Auto) (1.18-3.74) K/mm3 [place] # (Auto) (0.24-0.36) K/mm3 Eos # (Auto) (0.04-0.36) K/mm3 Baso # (Auto) (0.01-0.08) K/mm3 Manual Slide Review Sodium (136-145) mEq/L Potassium (3.5-5.1) mEq/L Chloride (98-107) mEq/L Carbon Dioxide (21-32) mEq/L Anion Gap (5-15) BUN (7-18) mg/dL Creatinine (0.55-1.02) mg/dL Est Cr Clr Drug Dosing mL/min Estimated GFR (MDRD) (>60) mL/min BUN/Creatinine Ratio (14-18) Glucose (70-99) mg/dL Calcium (8.5-10.1) mg/dL Magnesium (1.8-2.4) mg/dL Total Bilirubin (0.2-1.0) mg/dL AST (15-37) U/L ALT (14-59) U/L Alkaline Phosphatase (46-116) U/L Troponin I < 0.017 (0.00-0.056) ng/mL NT-Pro-B Natriuret Pep 674 H (0-125) pg/mL Total Protein (6.4-8.2) g/dl Albumin (3.4-5.0) g/dl Globulin gm/dL Albumin/Globulin Ratio (1-2) Procalcitonin <0.05 ng/mL 07/21/20 07/21/20 07/21/20 Range/Units 05:57 05:57 05:57 WBC 13.89 H (3.98-10.04) K/mm3 RBC 3.52 L (3.98-5.22) M/mm3 Hgb 10.7 L (11.2-15.7) gm/dl Hct 33.7 L (34.1-44.9) % MCV 95.7 H (79.4-94.8) fl MCH 30.4 (25.6-32.2) pg MCHC 31.8 L (32.2-35.5) g/dl RDW Std Deviation 43.3 (36.4-46.3) fL Plt Count 259 (182-369) K/mm3 MPV 10.5 (9.4-12.3) fl Neut % (Auto) 78.5 H (34.0-71.1) % Lymph % (Auto) 9.1 L (19.3-51.7) % [place] % (Auto) 11.5 (4.7-12.5) % Eos % (Auto) 0.6 L (0.7-5.8) Baso % (Auto) 0.1 (0.1-1.2) % Neut # (Auto) 10.90 H (1.56-6.13) K/mm3 Lymph # (Auto) 1.26 (1.18-3.74) K/mm3 [place] # (Auto) 1.60 H (0.24-0.36) K/mm3 Eos # (Auto) 0.08 (0.04-0.36) K/mm3 Baso # (Auto) 0.02 (0.01-0.08) K/mm3 Manual Slide Review Abnormal smear Sodium 140 (136-145) mEq/L Potassium 3.3 L (3.5-5.1) mEq/L Chloride 103 (98-107) mEq/L Carbon Dioxide 27 (21-32) mEq/L Anion Gap 13.3 (5-15) BUN 13 (7-18) mg/dL Creatinine 0.6 (0.55-1.02) mg/dL Est Cr Clr Drug Dosing 72.11 mL/min Estimated GFR (MDRD) > 60 (>60) mL/min BUN/Creatinine Ratio 21.7 H (14-18) Glucose 104 H (70-99) mg/dL Calcium 8.5 (8.5-10.1) mg/dL Magnesium 1.9 (1.8-2.4) mg/dL Total Bilirubin 0.5 (0.2-1.0) mg/dL AST 34 (15-37) U/L ALT 144 H (14-59) U/L Alkaline Phosphatase 114 (46-116) U/L Troponin I (0.00-0.056) ng/mL NT-Pro-B Natriuret Pep (0-125) pg/mL Total Protein 6.3 L (6.4-8.2) g/dl Albumin 2.6 L (3.4-5.0) g/dl Globulin 3.7 gm/dL Albumin/Globulin Ratio 0.7 L (1-2) Procalcitonin ng/mL Result Diagrams: 07/21/20 05:57 07/21/20 05:57 Sepsis Event Note - Evaluation Sepsis Screening Result: No Definite Risk - Focused Exam Vital Signs: Vital Signs Temp Pulse Resp BP Pulse Ox Pulse Ox Pulse Ox 07/21/20 08:54 97 07/21/20 08:42 154/84 H 07/21/20 07:23 99.1 F 85 16 154/84 H 93 L 07/21/20 06:10 98 07/21/20 04:41 101 H 155/77 H 07/21/20 04:39 98.6 F 101 H 16 156/77 H 93 L 07/20/20 23:59 93 158/76 H 91 L - Problem List & Annotations (1) Fall as cause of accidental injury at home as place of occurrence SNOMED Code(s): 43576473 Code(s): W19.XXXA - UNSPECIFIED FALL, INITIAL ENCOUNTER; Y92.009 - UNSP PLACE IN UNSP NON-INSTITUT (PRIVATE) RESIDENCE PLACE Status: Acute Priority: High Current Visit: Yes Qualifiers: Encounter type: initial encounter Qualified Code(s): W19.XXXA - Unspecified fall, initial encounter; Y92.009 - Unspecified place in unspecified non- institutional (private) residence as the place of occurrence of the external cause (2) Multiple rib fractures involving four or more ribs SNOMED Code(s): 2721295 Code(s): S22.49XA - MULTIPLE FRACTURES OF RIBS, UNSP SIDE, INIT FOR CLOS FX Status: Acute Priority: High Current Visit: Yes (3) Anxiety disorder SNOMED Code(s): 477830869 Code(s): F41.9 - ANXIETY DISORDER, UNSPECIFIED Status: Chronic Priority: Medium Current Visit: Yes Qualifiers: Anxiety disorder type: unspecified anxiety disorder Qualified Code(s): F41.9 - Anxiety disorder, unspecified (4) Chronic pain SNOMED Code(s): 68707375 Code(s): G89.29 - OTHER CHRONIC PAIN Status: Chronic Priority: High Current Visit: Yes Qualifiers: Chronic pain type: other chronic pain Qualified Code(s): G89.29 - Other chronic pain (5) Low back pain with sciatica SNOMED Code(s): 360150721 Code(s): M54.40 - LUMBAGO WITH SCIATICA, UNSPECIFIED SIDE Status: Chronic Priority: Medium Current Visit: Yes Qualifiers: Chronicity: chronic Back pain laterality: left Sciatica laterality: sciatica of left side Qualified Code(s): M54.42 - Lumbago with sciatica, left side; G89.29 - Other chronic pain (6) Neuropathic pain, leg SNOMED Code(s): 05170621, 460508107 Code(s): G57.90 - UNSPECIFIED MONONEUROPATHY OF UNSPECIFIED LOWER LIMB Status: Chronic Priority: Medium Current Visit: No Qualifiers: Laterality: left Qualified Code(s): M79.2 - Neuralgia and neuritis, unspecified (7) HTN (hypertension) SNOMED Code(s): 76873648 Code(s): I10 - ESSENTIAL (PRIMARY) HYPERTENSION Status: Chronic Priority: Medium Current Visit: No Qualifiers: Hypertension type: essential hypertension Qualified Code(s): I10 - Essential (primary) hypertension (8) Pulmonary contusion SNOMED Code(s): 039731140 Code(s): S27.329A - CONTUSION OF LUNG, UNSPECIFIED, INITIAL ENCOUNTER Status: Acute Priority: High Current Visit: Yes Qualifiers: Encounter type: initial encounter Laterality: left Qualified Code(s): S27.321A - Contusion of lung, unilateral, initial encounter (9) Acute hypoxemic respiratory failure SNOMED Code(s): 261694938 Code(s): J96.01 - ACUTE RESPIRATORY FAILURE WITH HYPOXIA Status: Acute Priority: High Current Visit: Yes (10) Leukocytosis SNOMED Code(s): 843201639, 454247960 Code(s): D72.829 - ELEVATED WHITE BLOOD CELL COUNT, UNSPECIFIED Status: Acute Priority: Medium Current Visit: Yes Qualifiers: Leukocytosis type: unspecified Qualified Code(s): D72.829 - Elevated white blood cell count, unspecified (11) Altered mental status SNOMED Code(s): 420554816 Code(s): R41.82 - ALTERED MENTAL STATUS, UNSPECIFIED Status: Acute Priority: High Current Visit: Yes Qualifiers: Altered mental status type: disorientation Qualified Code(s): R41.0 - Dis orientation, unspecified (12) Transaminitis SNOMED Code(s): 410711893, 390409444 Code(s): R74.01 - ELEVATION OF LEVELS OF LIVER TRANSAMINASE LEVELS Status: Acute Priority: Medium Current Visit: Yes - Problem List Review Problem List Initiated/Reviewed/Updated: Yes - Plan Plan:: Plan: -Consulted Anesthesia/DRAFTER PATENT for possible intercostal nerve block given severe madeleine n (not available) -Oxygen to maintain SPO2 greater than 88% Continue OxyContin to 20mg every 12 hours -Continue Dilaudid 1 mg to every 2 hours as needed pain Toradol 15 mg IV every 6 hours as needed pain -Discontinue fentanyl patch as it is believed it led to significant confusion -Hydralazine as needed hypertension -PT/OT -Respiratory consultation, incentive spirometer every hour, -Up with assist -No antibiotics for possible pneumonia on chest x-ray. Repeat appears to be atelectasis. Closely monitor. Procalcitonin <0.05 -SCDs Lovenox -Resume home medications -Regular Diet -40mEq potassium today Deposition: Possible discharge tomorrow if confusion resolves. PT/OT recommending home with . LOS>96 hrs due to difficulty managing pain, Acute episode of AMS.
[2020-07-21 11:37] VITALS: BP 154/66; PULSE 87
--- NOTE | 2020-07-21 11:46 | PCM.DCSUM1 ---
Discharge Summary - Hospital Course HPI Initial Comments: Patient is a 74-year-old female who was at home and suffered a mechanical fall resulting in her falling down approximately 10 stairs. The patient denies any loss of consciousness and denies taking any blood thinners prior to her fall. The patient tripped causing her to fall forward and landed on the left side of her chest as well as the patient's left shoulder. At this time patient is complaining of acute left-sided chest pain as well as difficulty breathing. Patient did not have any prolonged downtime and EMS was summoned as patient was unable to get up without assistance. In the emergency department patient had CT scan of the chest did not show any evidence of pneumothorax, flail chest although the patient does have multiple left-sided anterior and posterior fractures. She is placed on 2 L nasal cannula secondary to suspected pulmonary contusion in the setting of left-sided chest trauma. Diagnosis: Stroke: No - Discharge Data Discharge Date: 07/21/20 (Admit date: 07/16/2020) Discharge Disposition: Home, Self-Care 01 Condition: Good - Referral to Home Health Primary Care Physician: Lewis Glover MD - Discharge Diagnosis/Problem(s) (1) Fall as cause of accidental injury at home as place of occurrence SNOMED Code(s): 79243072 ICD Code: W19.XXXA - UNSPECIFIED FALL, INITIAL ENCOUNTER; Y92.009 - UNSP PLACE IN UNSP NON-INSTITUT (PRIVATE) RESIDENCE PLACE Status: Acute Priority: High Current Visit: Yes Qualifiers: Encounter type: initial encounter Qualified Code(s): W19.XXXA - Unspecified fall, initial encounter; Y92.009 - Unspecified place in unspecified non- institutional (private) residence as the place of occurrence of the external cause (2) Multiple rib fractures involving four or more ribs SNOMED Code(s): 0857930 ICD Code: S22.49XA - MULTIPLE FRACTURES OF RIBS, UNSP SIDE, INIT FOR CLOS FX Status: Acute Priority: High Current Visit: Yes (3) Anxiety disorder SNOMED Code(s): 983395246 ICD Code: F41.9 - ANXIETY DISORDER, UNSPECIFIED Status: Chronic Priority: Medium Current Visit: Yes Qualifiers: Anxiety disorder type: unspecified anxiety disorder Qualified Code(s): F41.9 - Anxiety disorder, unspecified (4) Chronic pain SNOMED Code(s): 66593016 ICD Code: G89.29 - OTHER CHRONIC PAIN Status: Chronic Priority: High Current Visit: Yes Qualifiers: Chronic pain type: other chronic pain Qualified Code(s): G89.29 - Other chronic pain (5) Low back pain with sciatica SNOMED Code(s): 276577175 ICD Code: M54.40 - LUMBAGO WITH SCIATICA, UNSPECIFIED SIDE Status: Chronic Priority: Medium Current Visit: Yes Qualifiers: Chronicity: chronic Back pain laterality: left Sciatica laterality: sciatica of left side Qualified Code(s): M54.42 - Lumbago with sciatica, left side; G89.29 - Other chronic pain (6) Neuropathic pain, leg SNOMED Code(s): 12299421, 692633299 ICD Code: G57.90 - UNSPECIFIED MONONEUROPATHY OF UNSPECIFIED LOWER LIMB Status: Chronic Priority: Medium Current Visit: No Qualifiers: Laterality: left Qualified Code(s): M79.2 - Neuralgia and neuritis, unspecified (7) HTN (hypertension) SNOMED Code(s): 63917116 ICD Code: I10 - ESSENTIAL (PRIMARY) HYPERTENSION Status: Chronic Prior ity: Medium Current Visit: No Qualifiers: Hypertension type: essential hypertension Qualified Code(s): I10 - Essential (primary) hypertension (8) Pulmonary contusion SNOMED Code(s): 925960302 ICD Code: S27.329A - CONTUSION OF LUNG, UNSPECIFIED, INITIAL ENCOUNTER Status: Acute Priority: High Current Visit: Yes Qualifiers: Encounter type: initial encounter Laterality: left Qualified Code(s): S27.321A - Contusion of lung, unilateral, initial encounter (9) Acute hypoxemic respiratory failure SNOMED Code(s): 330831579 ICD Code: J96.01 - ACUTE RESPIRATORY FAILURE WITH HYPOXIA Status: Resolved Priority: High Current Visit: Yes (10) Leukocytosis SNOMED Code(s): 569149838, 373950690 ICD Code: D72.829 - ELEVATED WHITE BLOOD CELL COUNT, UNSPECIFIED Status: Acute Priority: Medium Current Visit: Yes Qualifiers: Leukocytosis type: unspecified Qualified Code(s): D72.829 - Elevated white blood cell count, unspecified (11) Altered mental status SNOMED Code(s): 639676839 ICD Code: R41.82 - ALTERED MENTAL STATUS, UNSPECIFIED Status: Resolved Priority: High Current Visit: Yes Qualifiers: Altered mental status type: disorientation Qualified Code(s): R41.0 - Disorientation, unspecified (12) Transaminitis SNOMED Code(s): 415368227, 734324842 ICD Code: R74.01 - ELEVATION OF LEVELS OF LIVER TRANSAMINASE LEVELS Status: Acute Priority: Medium Current Visit: Yes - Patient Summary/Data Consults: Consultations 07/16/20 16:00 PT Evaluation and Treatment [CONS] Routine Respiratory Care Assess and Treatment [CONS] Routine Labs Pending at D/C: None Recommended Follow-up Testing/Procedures: Follow-up with primary care provider within 7-10 days of discharge, sooner if needed. -Recommend repeat CBC, CMP, and magnesium at that visit. -Pay attention to potassium as patient was discharged on a few days of supplementation because it was low here. -Patient started on Norvasc daily. Patient started to take blood pressure twice daily and record and journal. Review BP journal. -Patient told not to drive or operate machinery while on oxycodone. Patient told not to drive until cleared by PCP. Hospital Course: This is a 74-year-old female presented to ED on 07/16/2020 after a fall down a flight of stairs. She states she tripped on the carpet. Per the patient her was at home but did not witness the fall. She denied any loss of consciousness and did remember the entire event. Landed on her left thorax and afterwards noted severe pain with inspiration and pain in her left scapular shoulder area. She carries a history of radiculopathy to her left upper extremity and is undergoing physical therapy on this. 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 She otherwise carries a history of hypercholesteremia, hypertriglyceridemia, asthma, chronic constipation, GERD, urinary incontinence, endometriosis, osteoarthritis, osteoporosis, lumbar stenosis with neurogenic claudication, anxiety, depression, panic attack, major depressive disorder, hypothyroidism, suicidal ideations. Chest CT was obtained in the ED which showed a parenchymal density within the right upper lung which could be pulmonary contusion and increased density within both lung bases most likely representing atelectasis. Rib fractures are noted within the anterior third fourth fifth and sixth ribs. Fractures are also noted within the posterior ninth and 10th ribs. There are 2 minimal compression deformities seen within the upper thoracic spine which are nonspecific regarding age. To mild compression deformities are also noted within the mid thoracic spine which are nonspecific regarding age. Humerus x-ray is obtained which shows nothing acute. Patient is subsequently admitted for pain control for her rib fractures. Repeat chest x-rays were obtained to follow possible pneumonia as patient does have mild leukocytosis. It is felt this likely represents atelectasis and not pneumonia. Procalcitonin was obtained and was less than 0.05. Patient was given IV fluids which did result in a mild decrease in her hemoglobin. There were no signs of active bleeding. Pain was somewhat difficult to control given patient's chronic pain history. Patient was ultimately given Flexeril as needed, as needed 50 mg every 6 hours Toradol, as needed Dilaudid, and as needed oxycodone [address] patient on a fentanyl patch for better control however patient was noted to have acutely worsening confusion. Fentanyl patch was removed. Patient did have acute episode of altered mental status with worsening confusion and mild combativeness. Patient was ultimately given Ativan and Haldol. Today patient does not remember this event and is completely alert and orientated. She is not had any issues with this in the past. She did work with PT who are recommending home with . She has had concerns about constipation in the past and this was managed well while here. She was utilizing incentive spirometer. She was requiring oxygen initially which was likely due to pain medications and pulmonary contusion. She was able to be weaned off prior to discharge. Her blood pressure was noted to be elevated throughout her stay reaching as high as 170s and 180s systolic. She was started on Norvasc 2.5 mg p.o. daily and this will be continued at discharge. She was instructed to take her blood pressure twice a day and record this in a journal bring this with to all medical appointments. She will be discharged on 100 mg p.o. twice daily Colace, 5 mg p.o. every 8 hour as needed Flexeril for muscle spasms, 17 g of MiraLAX p.o. daily, Norvasc as mentioned prior, and 5 mg p.o. ev merlyn 6 hours as needed oxycodone for moderate pain. She was instructed to continue to utilize her incentive spirometer for 1 to 2 weeks or until symptoms resolve. She was instructed to stay active. She was instructed to try to wean off of her narcotic pain medications and transition to Tylenol as soon as possible. She was instructed not to take her [place] until completely off of oxycodone. All other home medications were continued. She was instructed not to drive or operate heavy machinery while on narcotics. Her potassium was low and was supplemented prior to discharge. Instructed to follow-up with primary care provider within 7 to 10 days of discharge, sooner if needed. Recommend repeat CBC, CMP, and magnesium at that visit. Patient discharged home today. - Patient Instructions Diet: Usual Diet as Tolerated Activity: As Tolerated Driving: Do Not Drive (Until cleared by PCP. ) Showering/Bathing: May Shower Notify Provider of: Fever, Increased Pain, Nausea and/or Vomiting - Discharge Plan *PRESCRIPTION DRUG MONITORING PROGRAM REVIEWED*: No *COPY OF PRESCRIPTION DRUG MONITORING REPORT IN PATIENT MELINA: No Prescriptions/Med Rec: Docusate Sodium [Colace] 100 mg PO BID #40 cap Cyclobenzaprine [Flexeril] 5 mg PO Q8HR PRN #15 tab PRN Reason: Muscle spasms polyethylene glycoL 3350 [MiraLAX] 17 gm PO DAILY #20 packet amLODIPine [Norvasc] 2.5 mg PO DAILY #20 tablet oxyCODONE 5 mg PO Q6H PRN #30 tablet PRN Reason: Pain (Moderate 4-6) Home Medications: Home Meds ALPRAZolam [Xanax] 0.5 mg PO DAILY PRN 11/02/18 [History] Pravastatin [Pravachol] 40 mg PO BEDTIME 11/02/18 [History] polyethylene glycoL 3350 [Miralax] 1 packet PO DAILY 11/02/18 [History] Ibuprofen 400 mg PO Q4H PRN 07/16/20 [History] Krill/Om-3/DHA/EPA/Phospho/Ast [Krill Oil 1,000 mg Softgel] 1 tab PO DAILY 07/16/20 [History] Vit A/Vit C/Vit E/Zinc/Copper [Preservision] 2 tab PO DAILY 07/16/20 [History] buPROPion HCL [Bupropion Xl] 300 mg PO DAILY 07/16/20 [History] diphenhydrAMINE HCL [Benadryl Allergy] 25 mg PO DAILY PRN 07/16/20 [History] Cyclobenzaprine [Flexeril] 5 mg PO Q8HR PRN #15 tab 07/21/20 [Rx] Docusate Sodium [Colace] 100 mg PO BID #40 cap 07/21/20 [Rx] amLODIPine [Norvasc] 2.5 mg PO DAILY #20 tablet 07/21/20 [Rx] oxyCODONE 5 mg PO Q6H PRN #30 tablet 07/21/20 [Rx] polyethylene glycoL 3350 [MiraLAX] 17 gm PO DAILY #20 packet 07/21/20 [Rx] Patient Handouts: Fall Prevention in the Home, Adult, [id number], How to Use an Incentive Spirometer, Understanding Your Risk for Falls, Hypertension, Adult, Jzgc-yh-Lymc, Rib Fracture, Zzjt-lh-Potc Forms: ED Department Discharge Referrals: Lewis Glover MD [Primary Care Provider] - 07/30/20 10:30 am (this is the arrival time for the 10:45 appointment.) - Discharge Summary/Plan Comment DC Time >30 min.: Yes (45 mins ) - General Info Date of Service: 07/21/20 Functional Status: Reports: Pain Controlled, Tolerating Diet, Ambulating, Urinating, Incentive Spirometry. Denies: New Symptoms - Review of Systems General: Reports: Fatigue. Denies: Fever, Weakness, Malaise, Chills HEENT: Reports: No Symptoms. Denies: Headaches, Sore Throat Pulmonary: Denies: Shortness of Breath, Cough, Sputum, Wheezing Cardiovascular: Reports: Chest Pain (Worse with deep inspiration. Left mid axillary 2/2 rib fx). Denies: Palpitations, Dyspnea on Exertion, Edema Gastrointestinal: Reports: No Symptoms. Denies: Abdominal Pain, Constipation, Diarrhea, Nausea, Vomiting Genitourinary: Reports: No Symptoms. Denies: Pain Musculoskeletal: Reports: No Symptoms Skin: Reports: No Symptoms. Denies: Cyanosis Neurological: Reports: No Symptoms. Denies: Confusion, Headache, Numbness, Pre- Existing Deficit, Tingling, Difficulty Walking, Weakness, Gait Disturbance Psychiatric: Reports: No Symptoms - Patient Data Vitals - Most Recent: Last Vital Signs Temp 98.1 F 07/21/20 10:59 Pulse 87 07/21/20 10:59 Resp 16 07/21/20 10:59 BP 154/66 H 07/21/20 10:59 Pulse Ox 91 L 07/21/20 10:59 Weight - Most Recent: 154 lb 3.2 oz I&O - Last 24 hours: Intake & Output 07/20/20 07/21/20 07/21/20 22:59 06:59 14:59 Intake Total 810 200 Output Total 700 600 Balance 110 -400 Lab Results - Last 24 hrs: Laboratory Results - last 24 hr 07/20/20 07/20/20 07/20/20 Range/Units 06:26 17:08 17:08 WBC (3.98-10.04) K/mm3 RBC (3.98-5.22) M/mm3 Hgb (11.2-15.7) gm/dl Hct (34.1-44.9) % MCV (79.4-94.8) fl MCH (25.6-32.2) pg MCHC (32.2-35.5) g/dl RDW Std Deviation (36.4-46.3) fL Plt Count (182-369) K/mm3 MPV (9.4-12.3) fl Neut % (Auto) (34.0-71.1) % Lymph % (Auto) (19.3-51.7) % [place] % (Auto) (4.7-12.5) % Eos % (Auto) (0.7-5.8) Baso % (Auto) (0.1-1.2) % Neut # (Auto) (1.56-6.13) K/mm3 Lymph # (Auto) (1.18-3.74) K/mm3 [place] # (Auto) (0.24-0.36) K/mm3 Eos # (Auto) (0.04-0.36) K/mm3 Baso # (Auto) (0.01-0.08) K/mm3 Manual Slide Review Sodium (136-145) mEq/L Potassium (3.5-5.1) mEq/L Chloride (98-107) mEq/L Carbon Dioxide (21-32) mEq/L Anion Gap (5-15) BUN (7-18) mg/dL Creatinine (0.55-1.02) mg/dL Est Cr Clr Drug Dosing mL/min Estimated GFR (MDRD) (>60) mL/min BUN/Creatinine Ratio (14-18) Glucose (70-99) mg/dL Calcium (8.5-10.1) mg/dL Magnesium (1.8-2.4) mg/dL Total Bilirubin (0.2-1.0) mg/dL AST (15-37) U/L ALT (14-59) U/L Alkaline Phosphatase (46-116) U/L Troponin I < 0.017 (0.00-0.056) ng/mL NT-Pro-B Natriuret Pep 674 H (0-125) pg/mL Total Protein (6.4-8.2) g/dl Albumin (3.4-5.0) g/dl Globulin gm/dL Albumin/Globulin Ratio (1-2) Procalcitonin <0.05 ng/mL 07/21/20 07/21/20 07/21/20 Range/Units 05:57 05:57 05:57 WBC 13.89 H (3.98-10.04) K/mm3 RBC 3.52 L (3.98-5.22) M/mm3 Hgb 10.7 L (11.2-15.7) gm/dl Hct 33.7 L (34.1-44.9) % MCV 95.7 H (79.4-94.8) fl MCH 30.4 (25.6-32.2) pg MCHC 31.8 L (32.2-35.5) g/dl RDW Std Deviation 43.3 (36.4-46.3) fL Plt Count 259 (182-369) K/mm3 MPV 10.5 (9.4-12.3) fl Neut % (Auto) 78.5 H (34.0-71.1) % Lymph % (Auto) 9.1 L (19.3-51.7) % [place] % (Auto) 11.5 (4.7-12.5) % Eos % (Auto) 0.6 L (0.7-5.8) Baso % (Auto) 0.1 (0.1-1.2) % Neut # (Auto) 10.90 H (1.56-6.13) K/mm3 Lymph # (Auto) 1.26 (1.18-3.74) K/mm3 [place] # (Auto) 1.60 H (0.24-0.36) K/mm3 Eos # (Auto) 0.08 (0.04-0.36) K/mm3 Baso # (Auto) 0.02 (0.01-0.08) K/mm3 Manual Slide Review Abnormal smear Sodium 140 (136-145) mEq/L Potassium 3.3 L (3.5-5.1) mEq/L Chloride 103 (98-107) mEq/L Carbon Dioxide 27 (21-32) mEq/L Anion Gap 13.3 (5-15) BUN 13 (7-18) mg/dL Creatinine 0.6 (0.55-1.02) mg/dL Est Cr Clr Drug Dosing 72.11 mL/min Estimated GFR (MDRD) > 60 (>60) mL/min BUN/Creatinine Ratio 21.7 H (14-18) Glucose 104 H (70-99) mg/dL Calcium 8.5 (8.5-10.1) mg/dL Magnesium 1.9 (1.8-2.4) mg/dL Total Bilirubin 0.5 (0.2-1.0) mg/dL AST 34 (15-37) U/L ALT 144 H (14-59) U/L Alkaline Phosphatase 114 (46-116) U/L Troponin I (0.00-0.056) ng/mL NT-Pro-B Natriuret Pep (0-125) pg/mL Total Protein 6.3 L (6.4-8.2) g/dl Albumin 2.6 L (3.4-5.0) g/dl Globulin 3.7 gm/dL Albumin/Globulin Ratio 0.7 L (1-2) Procalcitonin ng/mL Med Orders - Current: Current Medications Alprazolam (Alprazolam 0.5 Mg Tab) 0.5 mg PO DAILY PRN PRN Reason: Anxiety Last Admin: 07/16/20 22:57 Dose: 0.5 mg Documented by: Amlodipine Besylate (Amlodipine 2.5 Mg Tab) 2.5 mg PO DAILY GLORIA Last Admin: 07/21/20 08:42 Dose: 2.5 mg Documented by: Bisacodyl (Bisacodyl 5 Mg Tab) 5 mg PO DAILY PRN PRN Reason: Constipation Bupropion HCl (Bupropion 150 Mg Tab.Er) 300 mg PO DAILY [facility] Last Admin: 07/21/20 08:44 Dose: 300 mg Documented by: Cyclobenzaprine HCl (Cyclobenzaprine 10 Mg Tab) 5 mg PO BID PRN PRN Reason: Spasms Last Admin: 07/21/20 08:43 Dose: 5 mg Documented by: Docusate Sodium (Docusate Sodium 100 Mg Cap) 100 mg PO BID [facility] Last Admin: 07/21/20 08:44 Dose: 100 mg Documented by: Enoxaparin Sodium (Enoxaparin 40 Mg/0.4 Ml Syringe) 40 mg SUBCUT Q24H [facility] Last Admin: 07/21/20 08:44 Dose: 40 mg Documented by: Famotidine (Famotidine 20 Mg Tab) 20 mg PO BID [facility] Last Admin: 07/21/20 08:43 Dose: 20 mg Documented by: Hydralazine HCl (Hydralazine 20 Mg/Ml Sdv) 10 mg IVPUSH Q6H PRN PRN Reason: Hypertension Last Admin: 07/20/20 21:02 Dose: 10 mg Documented by: Hydromorphone HCl (Hydromorphone 0.5 Mg/0.5 Ml Syringe) 0.5 mg IVPUSH Q2H PRN PRN Reason: Pain (severe 7-10) Ketorolac Tromethamine (Ketorolac 15 Mg/Ml Sdv) 15 mg IVPUSH Q6H PRN PRN Reason: Pain (moderate 4-6) Last Admin: 07/20/20 04:44 Dose: 15 mg Documented by: Lactulose (Lactulose Soln 10 Gm/15 Ml 30 Ml Ud Cup) 20 gm PO DAILY PRN PRN Reason: Constipation Last Admin: 07/19/20 08:41 Dose: 20 gm Documented by: Metoprolol Tartrate (Metoprolol Tartrate 25 Mg Tab) 12.5 mg PO Q12H [facility] Last Admin: 07/21/20 04:41 Dose: 12.5 mg Documented by: Ondansetron HCl (Ondansetron 4 Mg/2 Ml Sdv) 4 mg IV Q4H PRN PRN Reason: Nausea/Vomiting Last Admin: 07/18/20 07:49 Dose: 4 mg Documented by: Oxycodone HCl (Oxycodone 5 Mg Tab) 5 mg PO Q6H PRN PRN Reason: Pain (moderate 4-6) Last Admin: 07/21/20 08:43 Dose: 5 mg Documented by: Polyethylene Glycol (Polyethylene Glycol 3350 Powder 17 Gm Packet) 17 gm PO DAILY [facility] Last Admin: 07/21/20 08:44 Dose: 17 gm Documented by: Pravastatin Sodium (Pravastatin 20 Mg Tab) 40 mg PO BEDTIME [facility] Last Admin: 07/20/20 20:51 Dose: 40 mg Documented by: Senna (Sennosides 8.6 Mg Tab) 8.6 mg PO BID PRN PRN Reason: Constipation Discontinued Medications Acetaminophen (Acetaminophen 325 Mg Tab) 650 mg PO Q4H PRN PRN Reason: Pain (Mild 1-3)/fever Last Admin: 07/20/20 01:44 Dose: 650 mg Documented by: Alprazolam (Alprazolam 0.5 Mg Tab) 0.5 mg PO BID PRN PRN Reason: Anxiety Aspirin (Aspirin 325 Mg Tab.Ec) 325 mg PO BID [facility] Bisacodyl (Bisacodyl 10 Mg Supp) 10 mg RECTAL ONETIME ONE Stop: 07/19/20 18:21 Last Admin: 07/19/20 18:35 Dose: 10 mg Documented by: Carvedilol (Carvedilol 3.125 Mg Tab) 3.125 mg PO BID [facility] Last Admin: 07/20/20 08:24 Dose: 3.125 mg Documented by: Cholecalciferol (Cholecalciferol (Vitamin D3) 5,000 Unit Tab) 5,000 unit PO DAILY [facility] Fentanyl (Fentanyl 100 Mcg/2 Ml Sdv) 50 mcg IVPUSH ONETIME ONE Stop: 07/16/20 13:17 Last Admin: 07/16/20 13:25 Dose: 50 mcg Documented by: Fentanyl (Fentanyl 12 Mcg/Hr Transdermal Patch) 12 mcg TRDERM Q72H [facility] Last Admin: 07/19/20 11:21 Dose: 12 mcg Documented by: Gabapentin (Gabapentin 300 Mg Cap) 300 mg PO BEDTIME [facility] Haloperidol Lactate (Haloperidol Lactate 5 Mg/Ml Sdv) 1 mg IVPUSH ONETIME ONE Stop: 07/21/20 01:10 Last Admin: 07/21/20 01:16 Dose: 1 mg Documented by: Hydromorphone HCl (Hydromorphone 0.5 Mg/0.5 Ml Syringe) 0.5 mg IVPUSH ONETIME ONE Stop: 07/16/20 14:18 Last Admin: 07/16/20 14:22 Dose: 0.5 mg Documented by: Hydromorphone HCl (Hydromorphone 0.5 Mg/0.5 Ml Syringe) 0.5 mg IVPUSH ONETIME ONE Stop: 07/16/20 15:11 Last Admin: 07/16/20 15:28 Dose: 0.5 mg Documented by: Hydromorphone HCl (Hydromorphone 1 Mg/Ml Syringe) 1 mg IVPUSH Q3H PRN PRN Reason: Pain (severe 7-10) Last Admin: 07/18/20 08:55 Dose: 1 mg Documented by: Hydromorphone HCl (Hydromorphone 1 Mg/Ml Syringe) 1 mg IVPUSH Q2H PRN PRN Reason: Pain Last Admin: 07/20/20 10:42 Dose: 1 mg Documented by: Sodium Chloride (Normal Saline) 1,000 mls @ 70 mls/hr IV ASDIRECTED [facility] Last Admin: 07/20/20 06:23 Dose: 70 mls/hr Documented by: Ketorolac Tromethamine (Ketorolac 15 Mg/Ml Sdv) 15 mg IM Q6H PRN PRN Reason: Pain (moderate 4-6) Last Admin: 07/18/20 13:05 Dose: 15 mg Documented by: Lorazepam (Lorazepam 2 Mg/Ml Sdv) 0.5 mg IVPUSH ONETIME ONE Stop: 07/21/20 01:11 Last Admin: 07/21/20 01:16 Dose: 0.5 mg Documented by: Metoclopramide HCl (Metoclopramide 10 Mg/2 Ml Sdv) 7.5 mg IVPUSH ONETIME ONE Stop: 07/16/20 13:17 Last Admin: 07/16/20 13:23 Dose: 7.5 mg Documented by: Miscellaneous Information (Remove Patch *Fentanyl*) 1 ea TRDERM Q72H [facility] Non-Formulary Medication (Melatonin [Melatonin]) 5 mg PO BEDTIME PRN PRN Reason: Insomnia Non-Formulary Medication (Hydrocodone/Acetaminophen) 1 tab PO Q6H PRN PRN Reason: Pain Oxycodone HCl (Oxycodone Er 10 Mg Tab.Er) 10 mg PO Q12HR [facility] Last Admin: 07/17/20 08:30 Dose: 10 mg Documented by: Oxycodone HCl (Oxycodone Er 20 Mg Tab.Er) 20 mg PO Q12HR [facility] Last Admin: 07/20/20 08:26 Dose: 20 mg Documented by: Oxycodone HCl (Oxycodone Er 10 Mg Tab.Er) 10 mg PO ONETIME ONE Stop: 07/17/20 11:29 Last Admin: 07/17/20 13:13 Dose: 10 mg Documented by: Oxycodone HCl (Oxycodone Er 10 Mg Tab.Er) 10 mg PO Q12HR PRN PRN Reason: Pain (moderate 4-6) Polyethylene Glycol (Polyethylene Glycol 3350 Powder 17 Gm Packet) 17 gm PO DAILY PRN PRN Reason: Constipation Potassium Chloride (Potassium Chloride 20 Meq Tab.Er) 40 meq PO ONETIME ONE Stop: 07/21/20 09:17 Last Admin: 07/21/20 11:10 Dose: 40 meq Documented by: Pravastatin Sodium (Pravastatin 20 Mg Tab) 10 mg PO DAILY [facility]ORIA - Exam Quality Assessment: Reports: DVT Prophylaxis. Denies: Supplemental Oxygen, Urine Catheter General: Reports: Alert, Oriented, Cooperative, No Acute Distress HEENT: Reports: Pupils Equal, Pupils Reactive, Mucous Membr. Moist/[place] Neck: Reports: Supple, Trachea Midline Lungs: Reports: Clear to Auscultation, Normal Respiratory Effort Cardiovascular: Reports: Regular Rate, Regular Rhythm GI/Abdominal Exam: Normal Bowel Sounds, Soft, Non-Tender, No Distention (Female) Exam: Deferred Rectal (Female) Exam: Deferred Back Exam: Reports: Normal Inspection, Full Range of Motion Extremities: Normal Inspection, Normal Range of Motion, Non-Tender, No Pedal Edema, Normal Capillary Refill Skin: Reports: Warm, Dry, Intact Neurological: Reports: No New Focal Deficit Psy/Mental Status: Reports: Alert, Normal Affect, Normal Mood
== END 2020-07-21 13:54 | disposition home or self-care (01) | DRG 183 ==
LOC: SUPCPDRO 13:05 → JD.ED 13:05 → JD.MS 15:22
PROVIDERS: ADMIT Internal Medicine; ATTEND Internal Medicine
DX: S22.42XA Multiple fractures of ribs, left side, initial encounter for closed fracture (principal); W10.8XXA Fall (on) (from) other stairs and steps, initial encounter; J96.01 Acute respiratory failure with hypoxia; S27.321A Contusion of lung, unilateral, initial encounter; F41.9 Anxiety disorder, unspecified; G89.29 Other chronic pain; M54.42 Lumbago with sciatica, left side; G57.90 Unspecified mononeuropathy of unspecified lower limb; I10 Essential (primary) hypertension; R74.01 Elevation of levels of liver transaminase levels; W10.9XXA Fall (on) (from) unspecified stairs and steps, initial encounter; W18.09XA Striking against other object with subsequent fall, initial encounter; E78.00 Pure hypercholesterolemia, unspecified; E78.1 Pure hyperglyceridemia; J45.909 Unspecified asthma, uncomplicated; K59.09 Other constipation; K21.9 Gastro-esophageal reflux disease without esophagitis; R32 Unspecified urinary incontinence; M19.90 Unspecified osteoarthritis, unspecified site; M81.0 Age-related osteoporosis without current pathological fracture; M48.062 Spinal stenosis, lumbar region with neurogenic claudication; F32.9 Major depressive disorder, single episode, unspecified; E03.9 Hypothyroidism, unspecified; K59.00 Constipation, unspecified; H91.90 Unspecified hearing loss, unspecified ear; H54.7 Unspecified visual loss; Z96.652 Presence of left artificial knee joint; H35.30 Unspecified macular degeneration; M54.9 Dorsalgia, unspecified; Z85.828 Personal history of other malignant neoplasm of skin; Z98.49 Cataract extraction status, unspecified eye; Z79.899 Other long term (current) drug therapy; Z88.8 Allergy status to other drugs, medicaments and biological substances; Z79.82 Long term (current) use of aspirin; Z87.01 Personal history of pneumonia (recurrent); Z90.49 Acquired absence of other specified parts of digestive tract; Z90.710 Acquired absence of both cervix and uterus; Z98.890 Other specified postprocedural states; Z20.822 Contact with and (suspected) exposure to COVID-19; Y92.009 Unspecified place in unspecified non-institutional (private) residence as the place of occurrence of the external cause
CPT/HCPCS: 36415; 71250; 73060; 80053; 83735; 83880; 85025; 85610; 85730; 93005; 96374; 96375; 99285; J1170; J2765; J3010; J7030; U0002; 71045; 71045-26; 71046; 71046-26; 74018; 74018-26; 84145; 84484; 93010; 94762; 97161-GP; 97530-GP; 99222; 99233; 99239; A9270-GY; J0360; J1630; J1650; J1885; J2060; J2405